=== PATIENT | male | born 1950 | race Caucasian/White ===

== ENCOUNTER → 2020-05-04 13:29 | Outpatient (CLI) | payer MEDICARE, OTHER, SELFPAY ==
--- NOTE | ~2020-05-04 | XR_ITS ---
XR foot LT min 3V DATE: 05/04/2020 14:06 INDICATION: Foot ulcer. Diabetes mellitus. TECHNIQUE: 4 views COMPARISON: None FINDINGS: Diffuse osteopenia. There is old healed fracture deformity of the proximal phalanx of the great toe. There is mild osteoarthritis at the first metatarsophalangeal joint. Tibiotalar joint replacement. A fixation screw is noted in the anterior half of the calcaneus. No recent fracture or dislocation. No periosteal reaction or bone destruction. There is anterior and posterior tibial and dorsalis pedis artery calcification. IMPRESSION: Diffuse osteopenia Postoperative changes including prosthetic tibiotalar joint Reviewed, dictated and finalized at location B.
== END ==
DX: E11.621 Type 2 diabetes mellitus with foot ulcer (principal); I70.245 Atherosclerosis of native arteries of left leg with ulceration of other part of foot; L97.521 Non-pressure chronic ulcer of other part of left foot limited to breakdown of skin; E66.9 Obesity, unspecified; I48.91 Unspecified atrial fibrillation; Z79.02 Long term (current) use of antithrombotics/antiplatelets; E11.40 Type 2 diabetes mellitus with diabetic neuropathy, unspecified; G20 Parkinson's disease; I10 Essential (primary) hypertension
CPT/HCPCS: 73630

== ENCOUNTER 2021-06-27 10:41 | Outpatient (CLI) | payer MEDICARE, OTHER, SELFPAY | END 2021-06-27 10:42 | disposition home or self-care (01) | LOC: ANHAUDIO 10:45 | PROVIDERS: PCP Family Medicine; Visit Provider Otolaryngology | DX: H91.90 Unspecified hearing loss, unspecified ear (principal) | CPT/HCPCS: 92557; 92567 ==

== ENCOUNTER 2022-03-12 10:45 | Outpatient (RCR) | payer MEDICARE, OTHER, SELFPAY ==
--- NOTE | 2022-03-01 11:46 | PTOPEVAL ---
PHYSICAL THERAPY EVALUATION Thank you for referring Maximiliano Brown to [facility].? The patient is scheduled to be seen for therapy? 2x/week for 4 weeks for aquatic PT. Please review, sign, date and return this plan of care STEPHEN. I agree with and certify that the following plan of care is medically necessary. Referring Physician Date Attending Provider: Meredith Sin Diagnosis Parkinson's Disease Subjective Information Has diagnosis of PD. Has Query Text:As Reported By Patient/ participated in quite a bit of Family therapy in the past already. States the worked on gait and balance. States they started therapy around 2019 and started at twice a week and has been doing one time a week for the last several months. At home they will sometimes go for a walk. PD symptoms started in 1986 and diagnosed in 1995. DBS placed in 2010. Maximiliano has significant fatigue and falls asleep easily. His void is quite small and low amplitude. When asked about his goals and he is not able to identify anything specific. asks about getting up off the floor . States that on average he falls at least once a day. There have been some dementia symptoms at beginning and end of the day. Balance Assessment Thomas Balance Assessment: Timed Up and Go Test (TUG) (Seconds) 18 Assistive Devices Walker, Rollator 5 Time Sit to Stand Time in Seconds 12.17 5 Time Sit to Stand Comments heavy use of UE Gait Assessment Gait Pattern Assessment Gait Pattern Crouched Gait,Narrow Based Gait Gait Pattern Observed Trunk Flexed Other Gait Observations uses tall rollator walker; knees flexed, trunk forward and cues required to stand closer to walker 6 Minute Walk Total Distance (feet) 1,001 6 Minute Walk Gait Speed Score (feet/ 2.78 second) PT Clinical Summary Maximiliano is a 71 yo male presenting to outpatient physical therapy seeking aquatic physical therapy to
--- NOTE | 2022-03-16 10:08 | PCPTNOTE ---
Patient called & cancelled scheduled appointment this date due to being in the ED.
--- NOTE | 2022-03-16 14:18 | PCPTNOTE ---
Patient called & cancelled scheduled appointment this date due to being in the ED.
--- NOTE | 2022-03-28 07:42 | PCPTNOTE ---
PHYSICAL THERAPY DISCHARGE NOTE Attending Provider: Meredith Sin Patient:Maximiliano Brown Date of :1950 Maximiliano was participating in physical therapy to treat symptoms of Parkinson's disease. His called to report that he is in the hospital and will not be able to participate in PT. His last attended visit was 03/12/22 and he attended a total of 4 visits. Thank you for referring this patient to [facility]. Please review, sign, date and return this discharge summary STEPHEN. I have been updated about the patient's current status and I agree with discharge from the above service at this time. Referring Physician Date
== END 2022-03-28 12:19 | disposition home or self-care (01) ==
LOC: ANHPT 10:45
PROVIDERS: PCP Family Medicine
DX: G20 Parkinson's disease (principal)
CPT/HCPCS: 97113; 97163

== ENCOUNTER 2022-03-16 07:01 | Inpatient (IN) | payer MEDICARE, OTHER, SELFPAY ==
[2022-03-16] VITALS (22 sets, daily range): BP systolic 76–122; BP diastolic 58–77; PULSE 80–105; RESP 20–41; TEMP 36.4–36.8; O2SAT 87–99; BMI 29.1
--- NOTE | ~2022-03-16 | XR_ITS ---
EXAMINATION: XR chest 1V portable DATE: 03/19/2022 05:49 INDICATION: Acute respiratory failure. Pneumonia. TECHNIQUE: A single frontal view of the chest was obtained. COMPARISON: Chest single view 03/18/2022, CT abdomen and pelvis 03/16/2022 FINDINGS: There are airspace opacities in the lower lung zones. No pleural effusion or pneumothorax. The heart size is normal. The endotracheal tube tip is 3.9 cm above the chapis. The nasogastric tube tip is in the stomach. There is an electronic device overlying right chest with wires extending to th e neck. There are retained wires in left chest wall. IMPRESSION: 1. Airspace opacities in the lower lung zones with interval improvement, consistent with pneumonia. Reviewed, dictated and finalized at location A. IMPRESSION: 1. Airspace opacities in the lower lung zones with interval improvement, consis tent with pneumonia.
--- NOTE | ~2022-03-16 | XR_ITS ---
EXAMINATION: XR abdomen NG/feed tube insert DATE: 03/16/2022 23:41 INDICATION: Nasogastric tube placement TECHNIQUE: A supine view of the abdomen and lower chest was obtained for evaluation of feeding tube placement. COMPARISON: CT dated 03/16/2022 FINDINGS: There is a gastric tube tip and proximal side port in the body of the gas and fluid distended stomach . Dilated loops of small bowel in the visualized upper abdomen consistent with small bowel obstructio n. Patchy airspace opacities in the right mid to lower and left lower lung zones. IMPRESSION: 1. Nasogastric tube in stomach. 2. Small bowel obstruction. 3. Patchy bilateral lung disease which could represent aspiration, pneumonia, atelectasis or some com bination thereof. Reviewed, dictated and finalized at location A. IMPRESSION: 1. Nasogastric tube in stomach. 2. Small bowel obstruction. 3. Patchy bilateral lung disease which could represent aspiration, pneumonia, a telectasis or some combination thereof.
--- NOTE | ~2022-03-16 | XR_ITS ---
EXAMINATION: XR chest 1V portable DATE: 03/23/2022 05:33 INDICATION: Acute respiratory failure. Pneumonia. TECHNIQUE: A single frontal view of the chest was obtained. COMPARISON: Chest single view 03/22/2022 FINDINGS: The lung volumes are small. There are airspace opacities in all right lung zones and in lef t mid and lower lung zones. No pleural effusion or pneumothorax. The heart size is normal. The nasoga stric tube tip is in the stomach. There is an electronic device in right chest with wires extending i nto the neck. There are retained wires in left chest. IMPRESSION: 1. Small lung volumes with stable diffuse lung disease, consistent with pneumonia. Reviewed, dictated and finalized at location A. IMPRESSION: 1. Small lung volumes with stable diffuse lung disease, consistent with pneumon ia.
--- NOTE | ~2022-03-16 | CT_ITS ---
EXAMINATION: CT abdomen pelvis wo con DATE: 03/16/2022 20:32 INDICATION: Abdominal distention. Vomiting. TECHNIQUE: Computed tomography (CT) of the abdomen and pelvis was performed without intravenous contr ast. Automated exposure control and iterative reconstruction technique were employed. The dose-length product was 1515.99 mGy-cm. COMPARISON: None. FINDINGS: The visualized portions of the lung bases demonstrate patchy airspace and groundglass opaci ties in all lobes, worst in right upper lobe, consistent with pneumonia. There are small pleural effu sions. The heart size is normal. There are coronary artery calcifications. No pericardial effusion. T here is an electronic device in right anterior chest wall. There are retained electrodes in left ante rior chest wall. The liver is normal. There are gallstones in the gallbladder, which is distended. Th e stomach is distended. There is fluid in the esophagus. There is an umbilical hernia containing a lo op of small bowel. The small bowel is fluid-filled and dilated proximal to the hernia. The distal sma ll bowel is decompressed. The appendix is normal. Stool distends the rectum. The prostate is moderate ly enlarged. The bladder is decompressed by a Sanabria catheter. There are no pathologically enlarged ly mph nodes. There is no free intraperitoneal fluid. There is moderate lumbar spondylosis and mild thor acic spondylosis. IMPRESSION: 1. Small bowel obstruction secondary to an umbilical hernia. 2. Multifocal pneumonia. 3. Small pleural effusions. 4. Gallstones. Gallbladder distention may be secondary to fasting and bowel obstruction. Reviewed, dictated and finalized at location A. IMPRESSION: 1. Small bowel obstruction secondary to an umbilical hernia. 2. Multifocal pneumonia. 3. Small pleural effusions. 4. Gallstones. Gallbladder distention may be secondary to fasting and bowel obs truction.
--- NOTE | ~2022-03-16 | CT_ITS ---
EXAMINATION: CT brain wo con DATE: 03/29/2022 13:35 INDICATION: Stroke presenting with altered mental status and left facial droop. TECHNIQUE: Computed tomography (CT) of the head was performed without intravenous contrast. Sagittal and coronal reconstructions were performed. The mA was adjusted according to patient size. Iterative reconstruction technique was employed. The dose-length product was 605.33 mGy-cm. COMPARISON: head CT dated 03/16/2022 FINDINGS: Again seen are bilateral deep brain stimulators extending through left and right frontal bones and ac ross the frontal lobes with distal tips to the posterior inferior aspect of the bilateral basal gangl ia No acute intracranial hemorrhage, acute infarction or abnormal extra axial fluid collection. Symme tric prominence of the sulci consistent with mild age-appropriate diffuse cerebral volume loss. Vent ricles are normal and symmetric. No mass/mass effect. Prominent mucosal thickening the posterior righ t ethmoid air cells. Partially visualized nasogastric tube extending to the right nasal cavity. The o rbits and mastoid air cells are normal. IMPRESSION: 1. No acute intracranial process. 2. Chronic mild age-appropriate diffuse volume loss and stable appearance of bilateral deep brain sti mulators in expected position. Reviewed, dictated and finalized at location B. IMPRESSION: 1. No acute intracranial process. 2. Chronic mild age-appropriate diffuse volume loss and stable appearance of bi lateral deep brain stimulators in expected position.
--- NOTE | ~2022-03-16 | XR_ITS ---
XR abdomen NG/feed tube rechec INDICATION: Evaluate NG tube position. TECHNIQUE: Limited KUB perform for evaluating NG tube . COMPARISON: 03/25/2022 FINDINGS: NG tube tip in the stomach. Visualized bowel gas pattern is nonspecific.There is gastric d istention. IMPRESSION: 1: NG tube tip in the stomach. Reviewed, dictated and finalized at location A.
--- NOTE | ~2022-03-16 | XR_ITS ---
EXAMINATION: XR chest 1V portable DATE: 03/20/2022 06:13 INDICATION: Acute respiratory failure. Pneumonia. TECHNIQUE: A single frontal view of the chest was obtained. COMPARISON: Chest single view 03/19/2022, CT abdomen and pelvis 03/16/2022 FINDINGS: Lung volumes are small. There are airspace opacities in all right lung zones and in left mi d and lower lung zones. No pleural effusion or pneumothorax. The heart size is normal. The nasogastri c tube tip is in the stomach. An electronic device overlies right chest with wires in right neck. The re are retained wires in left chest. IMPRESSION: 1. Small lung volumes with worsened diffuse lung disease, consistent with pneumonia. Reviewed, dictated and finalized at location A. IMPRESSION: 1. Small lung volumes with worsened diffuse lung disease, consistent with pneum onia.
--- NOTE | ~2022-03-16 | XR_ITS ---
EXAM: XR abdomen/kub 1V DATE: 03/21/2022 20:31 HISTORY: distended abdomen . COMPARISON: None available. FINDINGS: Midline surgical jasmyn. Nasogastric tube terminates over the stomach. Gastric distention , otherwise normal bowel gas pattern. No organomegaly. No abnormal abdominal calcification. Regional bones and soft tissues normal for age. IMPRESSION: Gastric distention, correlate with NG tube function. No radiographic evidence of obstruct ion or ileus. Reviewed, dictated and finalized at location K. IMPRESSION: Gastric distention, correlate with NG tube function. No radiographi c evidence of obstruction or ileus.
--- NOTE | ~2022-03-16 | XR_ITS ---
XR chest 2V 03/16/2022 08:14 Indication: Sepsis Procedure: 2 view chest Comparison: Comparison to multiple prior studies sequentially, with oldest reviewed study dated 08/29. Findings: Heart size is normal. There is extensive bilateral airspace disease, right greater than lef t, consistent with pneumonia. No significant effusion or pneumothorax. There is gastric distention, n onspecific. There is a battery pack and stimulator leads overlying the chest. Impression: 1: Extensive bilateral airspace disease, compatible with pneumonia. Reviewed, dictated and finalized at location D. Impression: 1: Extensive bilateral airspace disease, compatible with pneumonia.
--- NOTE | ~2022-03-16 | XR_ITS ---
XR abdomen obstructive series DATE: 03/25/2022 06:06 INDICATION: Postoperative ileus TECHNIQUE: Portable supine and upright AP views COMPARISON: 03/22/2022 KUB 03/16/2022 CT abdomen pelvis FINDINGS: NG tube is again noted with distal tip in the distal body of the stomach. Colp overlie the left lower abdomen and pelvis. The bowel gas pattern is nonspecific, without appa rent obstruction. No intraperitoneal free air is evident. There is infiltrate or atelectasis in the lung bases, left greater than right and mild elevation of l eft diaphragm. IMPRESSION: Postoperative change; no bowel obstruction is evident NG tube in stomach Bibasilar infiltrate or atelectasis Reviewed, dictated and finalized at Location A. Reviewed, dictated and finalized at location A.
--- NOTE | ~2022-03-16 | XR_ITS ---
MODIFIED ESOPHAGRAM HISTORY: Dysphagia. TECHNIQUE: Modified barium esophagram was performed by speech pathologist under radiologist fluorosco pic guidance. This was recorded on tape. The exam was reviewed on 03/30/2022 13:43 CDT. 1 minute of f luoroscopy. One fluoroscopic image. FINDINGS: Lateral projection of the cervical spine demonstrates normal alignment. There is reduced laryngeal elevation, reduced laryngeal adduction, reduced tongue base retraction with follicular and piriform sinus residue. There is laryngeal penetration with thin liquids and pudding. There are suspe cted aspiration.. IMPRESSION: 1: Laryngeal penetration with suspected aspiration. 2: Please refer to speech pathologist report for additional detail. Reviewed, dictated and finalized at location A.
--- NOTE | ~2022-03-16 | XR_ITS ---
EXAMINATION: XR abdomen/kub 1V DATE: 03/22/2022 07:41 INDICATION: Adynamic ileus. TECHNIQUE: A supine view of the abdomen was obtained. COMPARISON: CT abdomen and pelvis 03/16/2022 FINDINGS: There is gaseous distention of the stomach. The small bowel and colon are normal in caliber . Skin jasmyn are noted. The nasogastric tube tip is in the stomach. IMPRESSION: 1. Gaseous distention of the stomach with nasogastric tube tip in the stomach. Reviewed, dictated and finalized at location A.
--- NOTE | ~2022-03-16 | XR_ITS ---
EXAMINATION: XR chest 1V portable Exam Date/Time: 03/21/2022 20:15 CDT HISTORY: CHANGE IN STATS Comparison: 03/21/2022 at 5:48 AM. RESULT: Lines, tubes, and devices: NG tube tip and side port project over the stomach. Stimulator in the rig ht chest leads extending up the right neck. Abandoned wires in the left chest/neck. Lungs and pleura: Low volumes with crowding, otherwise clear. Cardiomediastinal silhouette: Stable cardiomediastinal silhouette. Other: No acute osseous finding. Gastric distention. IMPRESSION: NG tube in good position, however gastric distention raises concern for tube dysfunction. Reviewed, dictated and finalized at location K. IMPRESSION: NG tube in good position, however gastric distention raises concern for tube dy sfunction.
--- NOTE | ~2022-03-16 | XR_ITS ---
EXAMINATION: XR chest 1V portable DATE: 03/22/2022 05:53 INDICATION: Acute respiratory failure. Pneumonia. TECHNIQUE: A single frontal view of the chest was obtained. COMPARISON: Chest single view 03/21/2022 FINDINGS: The lung volumes are small. There are airspace opacities in all right lung zones and in lef t mid and lower lung zones. No pleural effusion or pneumothorax. The heart size is normal. The nasoga stric tube tip is in the stomach. There is gastric distention of the stomach. There is an electronic device in right chest with wires extending into the neck. There are retained wires in left chest. IMPRESSION: 1. Small lung volumes with stable diffuse lung disease, consistent with pneumonia. Reviewed, dictated and finalized at location A. IMPRESSION: 1. Small lung volumes with stable diffuse lung disease, consistent with pneumon ia.
--- NOTE | ~2022-03-16 | US_ITS ---
EXAMINATION: US renal BI DATE: 03/17/2022 13:40 INDICATION: Acute renal insufficiency TECHNIQUE: Multiple ultrasound grayscale images of the kidneys were obtained. COMPARISON: CT dated 03/16/2022 FINDINGS: The right kidney measures 11.0 x 6.4 x 7.2 cm. The left kidney measures 10.3 x 4.7 x 5.2 cm. The kidn eys demonstrate normal echogenicity. A millimeter anechoic cyst at the medial periphery of the right kidney. Mild echogenic and shadowing stone at the lower pole of the left kidney which measures 3 mm o n prior CT. There is no hydronephrosis in either kidney. The bladder is decompressed around a Sanabria catheter which limits evaluation. IMPRESSION: 1. 3 mm left renal stone. No hydronephrosis in either kidney. Reviewed, dictated and finalized at location A.
--- NOTE | ~2022-03-16 | CT_ITS ---
EXAMINATION: CT chest abdomen pelvis wo con DATE: 03/25/2022 16:32 CDT INDICATION: Fever and leukocytosis TECHNIQUE: Computed tomography (CT) of the chest, abdomen, and pelvis was performed without intraveno us contrast. The dose-length product was 1718.67 mGy-cm. Automated exposure control and iterative rec onstruction technique were employed. Automated exposure control and iterative reconstruction techniqu e were employed. COMPARISON: CT dated 03/16/2022 FINDINGS: There is improved bibasilar airspace disease, consistent with a resolving pneumonia. No significant p leural or pericardial effusion. Heart size normal. There is an NG tube in the stomach. There are gall stones. The liver, spleen, pancreas, left adrenal gland are unremarkable. There is a small low-densit y lesion in the right adrenal gland measuring 2.3 cm, consistent with adenoma. There are nonobstructi ng left renal stones. There is a Sanabria catheter in the bladder which is decompressed. There are punct ate nonobstructing right renal stones. There is atherosclerosis of the aorta without aneurysm. There is moderate fecal loading of the distal colon and rectum with concentric thickening of the rectal wal l. Mild perirectal fatty infiltration. Findings suspicious for stercoral proctitis. There are surgica l changes of the anterior abdominal wall consistent with recent hernia repair. There is moderate lumb ar spondylosis. IMPRESSION: 1. Moderate fecal loading of the distal colon and rectum with concentric thickening of the rectal wal l, suspicious for stercoral proctitis. 2: Improving bibasilar pneumonia. 3: Cholelithiasis. 4: Nonobstructing bilateral nephrolithiasis. Reviewed, dictated and finalized at location A. IMPRESSION: 1. Moderate fecal loading of the distal colon and rectum with concentric thicke freddie of the rectal wall, suspicious for stercoral proctitis. 2: Improving bibasilar pneumonia. 3: Cholelithiasis. 4: Nonobstructing bilateral nephrolithiasis.
--- NOTE | ~2022-03-16 | XR_ITS ---
EXAMINATION: XR chest ET placement DATE: 03/18/2022 09:33 INDICATION: Endotracheal tube placement TECHNIQUE: frontal view of the chest was obtained. COMPARISON: Chest radiograph dated 03/17/2022 FINDINGS: Endotracheal tube tip 4.3 cm above the chapis. Nasogastric tube tip in the stomach. Lung volumes remain small. Interval improvement in airspace opacities in the right lung and in the le ft mid to lower lung zone. No pneumothorax or definitive pleural effusion. The cardiomediastinal cesar houette is within normal limits for AP technique. IMPRESSION: 1. Interval decrease in density of bilateral airspace opacities most likely improving multifocal pneu monia. Reviewed, dictated and finalized at location A. IMPRESSION: 1. Interval decrease in density of bilateral airspace opacities most likely imp roving multifocal pneumonia.
--- NOTE | ~2022-03-16 | CT_ITS ---
EXAMINATION: CT brain wo con DATE: 03/16/2022 08:10 INDICATION: Status post fall. Patient on blood thinners. TECHNIQUE: Computed tomography (CT) of the head was performed without intravenous contrast. The dose- length product was 605.33 mGy-cm. Automated exposure control and iterative reconstruction technique w ere employed. COMPARISON: CT dated 08/08/2019 FINDINGS: Brain parenchymal volume is normal. There are deep brain stimulator leads extending from th e frontal location to the basal ganglia. No ventriculomegaly or midline shift. There is intracranial atherosclerosis. There are scattered mild periventricular and subcortical white matter changes, most likely related to small vessel ischemic disease (microangiopathy). No acute intracranial hemorrhage, infarction, mass or mass effect. There is mucosal thickening of the right maxillary and ethmoid sinus es. Mastoids are pneumatized. Small air-fluid levels in the right maxillary and the right sphenoid si nuses. IMPRESSION: 1. No acute intracranial abnormality. 2: Mild-moderate sinus disease, possibly acute. 3: Chronic age-related findings. Reviewed, dictated and finalized at location D.
--- NOTE | ~2022-03-16 | XR_ITS ---
EXAMINATION: XR chest 1V portable DATE: 03/17/2022 05:50 INDICATION: Pneumonia TECHNIQUE: frontal view of the chest was obtained. COMPARISON: Chest radiograph dated 03/16/22 FINDINGS: Persistent airspace opacities in the right midlung zone and significant increase in airspace opacity in the left lower lung zone. Slight improvement in the opacities in the right lower lung zone. No pne umothorax or right-sided pleural effusion. Cardiac mediastinal silhouette is within normal limits for AP technique. Nasogastric tube tip in proximal side port in the stomach. IMPRESSION: 1. Patchy bilateral lung disease at the left lower lung zone with improvement in the right lower lung zone and worsening in the left lower lung zone which could represent pneumonia, atelectasis, pulmona ry edema or some combination thereof. 2. Possible small left pleural effusion. Reviewed, dictated and finalized at location A. IMPRESSION: 1. Patchy bilateral lung disease at the left lower lung zone with improvement i n the right lower lung zone and worsening in the left lower lung zone which cou ld represent pneumonia, atelectasis, pulmonary edema or some combination thereo f. 2. Possible small left pleural effusion.
--- NOTE | ~2022-03-16 | XR_ITS ---
EXAMINATION: XR chest 1V portable DATE: 03/21/2022 05:56 INDICATION: Acute respiratory failure. Pneumonia. TECHNIQUE: A single frontal view of the chest was obtained. COMPARISON: Chest single view 03/20/2022 FINDINGS: The lung volumes are small. There are airspace opacities in the mid and lower lung zones. N o pleural effusion or pneumothorax. The heart size is normal. The nasogastric tube tip is in the stom ach. There is an electronic device in right chest with wires extending to the neck. There are retaine d wires in left chest. IMPRESSION: 1. Small lung volumes with airspace opacities in the mid and lower lung zones with mild improvement, consistent with pneumonia. Reviewed, dictated and finalized at location A. IMPRESSION: 1. Small lung volumes with airspace opacities in the mid and lower lung zones w ith mild improvement, consistent with pneumonia.
[2022-03-16] MEDS: SODIUM CHLORIDE 0.9% IV 1,000 ML 999 ML IV CONT (07:15)
--- NOTE | 2022-03-16 07:27 | ED.GENADULT ---
HPI - General Adult General Chief complaint: Fall Stated complaint: glf x 2 , altered, unable to get fast ed score Time Seen by Provider: 03/16/22 07:04 Source: patient, family, EMS and RN notes reviewed Mode of arrival: EMS Limitations: no limitations History of Present Illness HPI narrative: Patient 72 years old white male brought to the emergency room by ambulance because he was not able to keep standing this morning. Patient was laying down on the floor, try to get up and became falling over, his try to get him on the chair and felt over. No head injury, or other injuries, patient is asymptomatic. The is telling me that patient been spitting/vomiting coffee-ground material over the last 48 hours. History of low blood pressure for a while, in the range of 100/60. Patient on blood pressure medication. He denies any fever, chills, nausea, diarrhea, abdominal pain, chest pain, shortness of breath, back pain or head injury. History of parkinsonism, A. fib, brain stimulator, on aspirin, does not smoke or drink, DNR. Patient have trouble to take care of him because of the movement disorder of parkinsonism, requested shelter placement if there is no other way around. Related Data Home Medications Medication Instructions Recorded Confirmed atenolol 25 mg tablet 25 mg PO DAILY 06/07/21 06/07/21 carbidopa 25 mg-levodopa 100 mg 1 tablet PO TID 06/07/21 06/07/21 tablet hydrochlorothiazide 25 mg tablet 25 mg PO DAILY 06/07/21 06/07/21 inulin-sorbitol 2 gram chewable tablet PO 06/07/21 06/07/21 tablet mirabegron 25 mg tablet,extended 25 mg PO DAILY 06/07/21 06/07/21 release 24 hr pramipexole 1 mg tablet 1 mg PO TID 06/07/21 06/07/21 tramadol 50 mg tablet 50 mg PO Q6H PRN 06/07/21 06/07/21 Allergies Allergy/AdvReac Type Severity Reaction Status Date / Time No Known Allergies Allergy Verified 09/20/16 19:39 Review of Systems Review of Systems: All systems reviewed & are unremarkable except as noted in HPI and below PMFSH Social History Social History Smoking status: Never smoker Alcohol intake: current Alcohol use details: 1 to 2 drinks per year Substance use: never Exam Narrative: General appearance: Well-developed, well-nourished, poor hygienic condition Skin: Normal color, no bruises Head: Normocephalic, nontraumatic Eyes: Clear conjunctiva ENT: Oropharynx normal, ears normal, nose normal Neck: Supple, nontender Chest and respiratory: Airway patent, no respiratory distress, no accessory muscle use Heart: Regular rate/rhythm Abdomen: Soft, nontender, no organomegaly, quiet bowel sounds, umbilical hernia Vascular: Normal peripheral pulses, normal capillary refill. 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 Alexander Admit to IMU Date: 03/16/22 Time: 09:36 Vital Signs Vital signs: Vital Signs Temperature 36.6 C 03/16/22 07:01 Pulse Rate 105 H 03/16/22 07:01 Respiratory Rate 30 H 03/16/22 07:01 Blood Pressure 76/60 L 03/16/22 07:01 Pulse Oximetry 88 L 03/16/22 07:01 Temperature 36.6 C 03/16/22 07:01 Pulse Rate 105 H 03/16/22 07:01 Respiratory Rate 30 H 03/16/22 07:01 Blood Pressure 76/60 L 03/16/22 07:01 Pulse Oximetry 93 03/16/22 07:10 Medical Decision Making Differential Diagnosis Differential Diagnosis: Sepsis, pneumonia, urinary tract infection, dehydration, electrolyte imbalance Vital Signs Vital Signs: Vital Signs Temperature 36.6 C 03/16/22 07:01 Pulse Rate 105
--- NOTE | 2022-03-16 07:29 | ECG_ITS ---
Measurements Intervals [place] Rate: 91 P: 23 VT: 145 QRS: 32 QRSD: 90 T: 37 QT: 387 QTc: 477 Interpretive Statements SINUS RHYTHM VENTRICULAR PREMATURE COMPLEXES POSSIBLE LEFT ATRIAL ENLARGEMENT BORDERLINE ST-T WAVE ABNORMALITY- INFERIOR LEADS BASELINE ARTIFACT- I, II, III, AVR, AVL, AVF, V1-V6 ABNORMAL ECG Electronically Signed On 03-16-2022 8:55:52 CDT by Emiliano Joya D.O.
[2022-03-16 07:44] LABS: Alveolar/Arterial O2 Gradient 173.2 mmHg; Base Excess ABG -0.5 mEq/l (+/-2.0); Device NASAL CANNULA; Fractional Inspired Oxygen 40 %; HCO3 ABG 23.3 mEq/l (22.0-26.0); Modified Allen's Test Pass; Oxygen Content ABG 22.7 %vol (16.0-22.0); Oxygen Saturation ABG 94.7 % (95.0-100.0); Oxyhemoglobin 92.8 % THb (90.0-100.0); PO2 ABG 70.6 mmHg (80.0-100.0); PO2 FiO2 Ratio Arterial Blood 1.76 %; Site Drawn LEFT RADIAL; Total Hemoglobin 17.4 g/dL (12.0-18.0); pH ABG 7.428 (7.350-7.450)
[2022-03-16 08:03] LABS: Hematocrit 54.5 % (42.0-52.0); Hemoglobin 17.4 g/dL (14.0-18.0); Mean Corpuscular HGB Conc 31.9 g/dl (32-36); Mean Corpuscular Hemoglobin 30.5 pg (26-34); Mean Corpuscular Volume 95.4 fl (80-100); Mean Platelet Volume 11.5 fl (7.4-10.4); Platelet Count Result 216 k/mm3 (150-375); Red Blood Count 5.71 M/mm3 (4.6-6.20); Red Cell Distribution Width 13.8 % (11.5-14.5); White Blood Count 6.3 K/mm3 (4.5-10.0)
[2022-03-16 08:10] LABS: INR 1.7
[2022-03-16 08:21] LABS: Partial Thromboplastin Time 25.1 SECONDS (22.3-36.8)
[2022-03-16 08:23] LABS: Albumin Level 4.1 g/dL (3.5-5.1); Alkaline Phosphatase 104 U/L (38-126); Anion Gap 18 mmol/L (8-16); Aspartate Amino Transferase 35 U/L (17-59); Bilirubin,Total 1.3 mg/dL (0.2-1.3); Blood Urea Nitrogen 64 mg/dL (9-20); Calcium 8.1 mg/dL (8.4-10.2); Carbon Dioxide 28 mmol/L (22-30); Chloride 101 mmol/L (98-107); Estimated CRCL calculation 26 ml/min; Estimated Glomerular Filt Rate 22; Glucose 168 mg/dL (65-110); Lactic Acid Reflex 5.9 mmol/L (0.7-2.0); Potassium 4.2 mmol/L (3.4-5.0); Sodium 147 mmol/L (137-145)
[2022-03-16 08:25] LABS: Atypical Lymphocytes Present; Band Neutrophils Percent 40 % (0-6); Lymphocytes Absolute Manual 0.75 K/mm3 (1.1-4.5); Metamyelocytes Percent 4 %; Monocytes Percent Manual 8 % (3-9); Neutrophils Absolute Manual 4.78 K/mm3 (1.3-6.7); Neutrophils Percent Manual 36 % (46-73); Platelet Estimate Adequate (Adequate); Total Cells Counted 100
[2022-03-16 08:29] LABS: Alanine Aminotransferase 19 U/L (6-50)
[2022-03-16 08:35] LABS: CRP 21.7 mg/dL (<1.0)
[2022-03-16 09:15] LABS: SARS-CoV-2 RNA PCR Negative
--- NOTE | 2022-03-16 09:23 | PC.NURSE ---
Pt unable to void will proceed with straight cath.
[2022-03-16 10:03] LABS: Add Urine Microscopic? YES; Appearance Urine Slightly Cloudy (Clear); Bilirubin Urine 1+ (Negative); Blood Urine 2+ (Negative); Color Urine Amber (Yellow); Glucose Urine UA Negative (Negative); Ketones Urine Trace mg/dL (Negative); Leukocyte Esterase Ur Negative LEU/UL (Negative); Nitrate Urine Negative (Negative); Protein Urine 1+ mg/dL (Negative); Specific Grav Ur >= 1.030 (1.001-1.035); Urobilinogen Urine 0.2 mg/dL (<2.0)
[2022-03-16 10:07] LABS: Bacteria Urine Trace /hpf; Hyaline Casts Urine 15-19 /lpf; Mucus Urine Rare /lpf
[2022-03-16 10:52] LABS: Reflex Lactic Acid Yes or No Add Lactic
[2022-03-16 11:21] LABS: Lactic Acid 2.7 mmol/L (0.7-2.0)
--- NOTE | 2022-03-16 12:00 | ADMGEN ---
This patient, Maximiliano Brown, was admitted to Intensive Care Unit-3. Patient/family oriented to hospital policies and general routines including ID bracelet, bed and alarms, visiting hours, pain management, procedures, bathroom and other care routines, personal items, smoking policy, room service/diet, and visiting hours. Information on how to activate the Rapid Response Team has been discussed. Patient/Family are encouraged to report perceived risks to care and to ask questions if they do not understand what they are told or what they should do.
[2022-03-16 12:20] LABS: Glucose Point of Care 160 mg/dl (65-105)
--- NOTE | 2022-03-16 12:31 | WPDCNINT ---
Assessment and Plan Assessment and plan (1) Severe sepsis: Code(s): A41.9 - Sepsis, unspecified organism; R65.20 - Severe sepsis without septic shock Status: Acute Assessment and Plan: Patient presented with weakness, fall, hypotension, elevated lactic acid, acute kidney injury -found to be in severe sepsis, source likely pneumonia -patient was given 30 mL/kg of IV fluids, -normal systolic blood pressures per is between 90-110 mmHg -will continue maintenance IV fluids -repeat lactic acid trending down continue to monitor -patient started on vancomycin, Zosyn Levaquin (03/16) -SARS-CoV-2 negative -will obtain influenza A and B, will check urine Legionella and urine strep pneumo antigen (2) Pneumonia: Qualifiers: Laterality: bilateral Lung location: lower lobe of lung Pneumonia type: due to unspecified organism Qualified Code(s): J18.9 - Pneumonia, unspecified organism Code(s): J18.9 - Pneumonia, unspecified organism Status: Acute Assessment and Plan: Chest x-ray reviewed, bilateral infiltrates due to pneumonia -continue supplemental oxygen -continue antibiotics as above -will obtain chest x-ray in a.m. -continue bronchodilators (3) NATALIO (acute kidney injury): Code(s): N17.9 - Acute kidney failure, unspecified Status: Acute Assessment and Plan: Acute kidney injury is likely related to severe sepsis, infection, hypovolemia, decreased p.o. intake -adequately fluid-resuscitated the ER -continue maintenance IV fluids -repeat lactic acid is trending down -will insert Sanabria for accurate I's and O's -continue to monitor renal function, electrolytes and urine output (4) Parkinson's disease: Code(s): G20 - Parkinson's disease Status: Acute Assessment and Plan: Patient has a history of Parkinson's disease for the last 25 years as per his -he has a deep brain stimulator -also on clozapine and is followed at [facility] for his Parkinson's disease (5) DVT prophylaxis: Code(s): Z29.9 - Encounter for prophylactic measures, unspecified Status: Acute Assessment and Plan: SubQ heparin Additional Plan Nutrition: Full liquid diet Discussed with patient's , she was instrumental in providing medical history. I updated her with patient's condition and plan of care. She is going to talk to her daughter was a nurse regarding intubation. Is okay with central line placement if necessary in starting vasopressors if needed. Which she did reiterate that patient is a DNR. Code status: DNR Critical care time spent: 48 minutes This dictation may have been done utilizing a voice recognition system. Attempts have been made to correct errors. However, there may be uncorrected grammatical, spelling, and recognition errors present. Due to a high probability of clinically significant, life threatening deterioration, the patient required my highest level of preparedness to intervene emergently and I personally spent this critical care time directly and personally managing the patient. This critical care time included obtaining a history; examining the patient; pulse oximetry; ordering and review of studies; arranging urgent treatment with development of a management plan; evaluation of patient's response to treatment; frequent reassessment; and discussions with other providers. It was exclusive of separately billable procedures and treating other patients and teaching time. Please see Assessment and Plan section and the rest of the note for further information on patient assessment and treatment Harpooner Consult Note Consult date: 03/16/22 Time Seen: 12:07 Reason for consult: Pneumonia, sepsis, weakness, shortness of breath HPI: Maximiliano Brown is a 72 year old male with past medical history of severe Parkinson's disease for the last 25 years per , patient has a deep brain stimulator for the same. He does not have any cardiac or pu
[2022-03-16] MEDS: IPRATROPIUM BR 0.02% INH SOLN 0.5 MG/2.5 ML VIAL INHALATION ×2 (13:21→19:53)
[2022-03-16] MEDS: ALBUTEROL SULFATE NEB 2.5 MG/3 ML INH 5 MG INHALATION ×2 (13:21→19:52)
[2022-03-16] MEDS: SODIUM CHLORIDE 0.9% IV 1,000 ML 100 ML IV CONT ×2 (13:58→18:00)
[2022-03-16 14:56] LABS: Hemoglobin A1C 5.7 % (<5.7)
[2022-03-16 16:29] LABS: Influenza A QL RT-PCR Negative (Negative); Influenza B QL RT-PCR Negative (Negative)
[2022-03-16 18:00] LABS: Glucose Point of Care 176 mg/dl (65-105)
[2022-03-16] MEDS: CARBIDOPA/LEVODOPA 25/100 MG TABLET 3 TABLET PO (18:00)
--- NOTE | 2022-03-16 18:00 | PM.IMHP ---
H&P: HPI History of Present Illness Date/Time: 03/16/22 18:00 Chief Complaint: Weakness. Narrative: This is a 72-year-old male with Parkinson's disease and hypertension who presented to the emergency department via EMS from home for evaluation of weakness. The patient is not a great historian as such a majority of the following is obtained via a review of his electronic medical records as well as discussions with his , with the patient's permission. The patient is typically pretty stoic he rarely complains however couple of days ago he mentions that his stomach was a bit upset. His appetite has been poor since that time and he has become progressively more weak and has noticed that he is sleeping more than usual. Last night he had several episodes of emesis and this morning morning he sustained a ground level fall and emergency services were contacted. On arrival to the ER his blood pressure was 76/60, pulse 105, respiratory rate 30, SpO2 88%, and temperature 97.9?. Pertinent labs include a WBC count of 6.3 with 36% neutrophils, 40% bands, 12% lymphocytes noted on manual differential; BUN and creatinine of 64 and 2.90 respectively; sodium 147, lactic acid 5.9; CRP 21.7. Brain CT showed mild to moderate sinus disease, possibly acute, and a chest x-ray showed extensive bilateral airspace disease compatible with pneumonia. He was given 3 L IV fluid bolus with improvement in his lactic acid level and blood pressures, and he was admitted to ICU for further care. At the time my evaluation he has a tray of clear liquids in front of him and on occasion he is noted to cough or clear his throat when drinking. After coughing he reached for the emesis bag and he spit up brown opaque fluid. Physical exam showed a firm and distended abdomen with mild tenderness to deeper palpation the periumbilical region. He was sent for a stat CT of the abdomen and pelvis which showed a small-bowel obstruction secondary to an umbilical hernia as well as multiple focal pneumonia. Surgery was consulted and an NG tube was inserted. Again, the patient has no complaints. Review of Systems Review of Systems: Unable to obtain accurately given his dementia associated with Parkinson's. reports that he sleeps the majority of the day and he occasionally hallucinates and wanders at nighttime. [facility] Past Medical History Medical History (Updated 03/17/22 @ 00:05 by Alicja Fong PA-C) Diet-controlled diabetes mellitus Parkinson's disease Parkinson's disease dementia Psoriasis Surgical History Surgical History (Updated 03/16/22 @ 23:59 by Alicja Fong PA-C) History of left ankle joint replacement Status post deep brain stimulator placement Family History Family History (Updated 03/17/22 @ 00:00 by Alicja Fong PA-C) Other Acute myocardial infarction Atrial fibrillation Cerebrovascular accident Hypertension Social History Social History (Updated 03/17/22 @ 00:01 by Alicja Fong PA-C) Social History: Surrogate decision maker: Norma Brown, spouse. Code status: Do not resuscitate. 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 Spiritual care concerns: No Meds Home Medications and Allergies Home Medications Medication Instructions Recorded Confirmed Type atenolol 25 mg tablet 12.5 mg PO DAILY 06/07/21 03/16/22 History carbidopa 25 mg-levodopa 100 mg See Rx Instructions .ROUTE .COMPLEX 06/07/21 03/16/22 History tablet hydrochlorothiazide 25 mg tablet 25 mg PO DAILY 06/07/21 03/16/22 History mirabegron 25 mg tablet,extended 50 mg PO DAILY 06/07/21 03/16/22 History release 24 hr pramipexole 1 mg tablet 1 mg PO TID 06/07/21 03/16/22 History cloza
[2022-03-16] MEDS: HALOPERIDOL LACTATE 5 MG/ML VIAL 2.5 MG IM (22:03)
[2022-03-17] VITALS (39 sets, daily range): BP systolic 83–120; BP diastolic 63–77; PULSE 80–108; RESP 18–28; TEMP 36.4–37.2; O2SAT 90–95
[2022-03-17 00:16] LABS: Glucose Point of Care 153 mg/dl (65-105)
[2022-03-17] MEDS: IPRATROPIUM BR 0.02% INH SOLN 0.5 MG/2.5 ML VIAL INHALATION ×4 (02:26→20:24)
[2022-03-17] MEDS: ALBUTEROL SULFATE NEB 2.5 MG/3 ML INH 5 MG INHALATION ×4 (02:26→20:24)
[2022-03-17] MEDS: SODIUM CHLORIDE 0.9% IV 1,000 ML 100 ML IV CONT (02:59)
[2022-03-17 04:37] LABS: Hematocrit 45.2 % (42.0-52.0); Hemoglobin 14.4 g/dL (14.0-18.0); Mean Corpuscular HGB Conc 31.9 g/dl (32-36); Mean Corpuscular Hemoglobin 30.1 pg (26-34); Mean Corpuscular Volume 94.4 fl (80-100); Mean Platelet Volume 11.5 fl (7.4-10.4); Platelet Count Result 164 k/mm3 (150-375); Red Blood Count 4.79 M/mm3 (4.6-6.20); Red Cell Distribution Width 13.8 % (11.5-14.5); White Blood Count 8.1 K/mm3 (4.5-10.0)
[2022-03-17 04:46] LABS: Lactic Acid Reflex 1.4 mmol/L (0.7-2.0)
[2022-03-17 04:48] LABS: Alanine Aminotransferase 8 U/L (6-50); Albumin Level 3.2 g/dL (3.5-5.1); Alkaline Phosphatase 75 U/L (38-126); Anion Gap 11 mmol/L (8-16); Aspartate Amino Transferase 49 U/L (17-59); Bilirubin,Total 1.1 mg/dL (0.2-1.3); Blood Urea Nitrogen 68 mg/dL (9-20); Calcium 7.4 mg/dL (8.4-10.2); Carbon Dioxide 25 mmol/L (22-30); Chloride 108 mmol/L (98-107); Estimated CRCL calculation 29 ml/min; Estimated Glomerular Filt Rate 26; Glucose 131 mg/dL (65-110); Phosphorus 4.1 mg/dL (2.5-4.5); Potassium 3.9 mmol/L (3.4-5.0); Sodium 144 mmol/L (137-145)
[2022-03-17 05:00] LABS: Band Neutrophils Percent 27 % (0-6); Lymphocytes Absolute Manual 0.64 K/mm3 (1.1-4.5); Lymphocytes Percent Manual 8 % (18-44); Monocytes Absolute Manual 0.48 K/mm3 (0.1-0.90); Monocytes Percent Manual 6 % (3-9); Neutrophils Absolute Manual 6.96 K/mm3 (1.3-6.7); Neutrophils Percent Manual 59 % (46-73); Total Cells Counted 100
[2022-03-17 05:01] LABS: Atypical Lymphocytes Present; Platelet Estimate Adequate (Adequate)
--- NOTE | 2022-03-17 05:41 | PC.NURSE ---
At the beginning of the shift the patient was vomiting so e took him to do a stat CT. the RIGGING SUPERVISOR then asked me to call the surgeon refrigeration unit repairer and Dr. Alexander and give them an update. Dr. Galaviz was called at 03/16 for his consult and stated he will see the patient 03/17. Dr. Alexander ordered the patient to have an NG. The first NG was placed at 2139 and the patient immediately took it out. I receivd an order for restraints and a small dose of haldol because merna was screaming and fighting the nurses. He was trying to kick and get out of bed and screaming for help. He was also hallucinating prior to medication being give, his says he hallucinates at home. At 2300 I was able to get the NG with no adverse events. Patient remains to be restrained and confused.
[2022-03-17 09:16] LABS: Glucose Point of Care 144 mg/dl (65-105)
--- NOTE | 2022-03-17 09:29 | PCSTNOTE ---
Spoke with ICU nurse regarding swallow evaluation due to Parkinson's diagnosis, coughing at bedside, and chest imaging revealing aspiration PNA. Nursing confirmed that patient is NPO for bowel obstruction, will consult ST once pt is able to accept PO trials.
--- NOTE | 2022-03-17 09:39 | WPDINTPN ---
Progress Note: A&P Assessment and Plan (1) Small bowel obstruction: Code(s): K56.609 - Unspecified intestinal obstruction, unspecified as to partial versus complete obstruction Status: Acute Assessment and Plan: Patient tried to have some clear liquids and had an episode of nausea and vomiting, 03/16: CT scan of the abdomen and pelvis: 1. Small bowel obstruction secondary to an umbilical hernia. 2. Multifocal pneumonia. 3. Small pleural effusions. 4. Gallstones. Gallbladder distention may be secondary to fasting and bowel obstruction. NG tube was inserted with approximately 3.5 L of NG drainage overnight and 1 L NG drainage is this morning -appreciate surgical evaluation, family is deciding whether to go for surgery or not (2) Severe sepsis: Code(s): A41.9 - Sepsis, unspecified organism; R65.20 - Severe sepsis without septic shock Status: Acute Assessment and Plan: Patient presented with weakness, fall, hypotension, elevated lactic acid, acute kidney injury -found to be in severe sepsis, source likely pneumonia -patient was given 30 mL/kg of IV fluids, -normal systolic blood pressures per is between 90-110 mmHg -will continue maintenance IV fluids -repeat lactic acid has normalized -patient started on vancomycin, Zosyn, Levaquin (03/16) -SARS-CoV-2 negative - influenza A and B is negative, -Urine Legionella and urine strep pneumo antigen obtained and pending (3) Pneumonia: Qualifiers: Laterality: bilateral Lung location: lower lobe of lung Pneumonia type: due to unspecified organism Qualified Code(s): J18.9 - Pneumonia, unspecified organism Code(s): J18.9 - Pneumonia, unspecified organism Status: Acute Assessment and Plan: Chest x-ray reviewed, bilateral infiltrates due to pneumonia -continue supplemental oxygen -continue antibiotics as above -chest x-ray this a.m. shows Patchy bilateral lung disease at the left lower lung zone with improvement in the right lower lung zone and worsening in the left lower lung zone which could represent pneumonia, atelectasis, pulmonary edema or some combination thereof.. -continue bronchodilators (4) NATALIO (acute kidney injury): Code(s): N17.9 - Acute kidney failure, unspecified Status: Acute Assessment and Plan: Acute kidney injury is likely related to severe sepsis, infection, hypovolemia, decreased p.o. intake -adequately fluid-resuscitated the ER -continue maintenance IV fluids -lactic acidosis -will insert Sanabria for accurate I's and O's -continue to monitor renal function, electrolytes and urine output -BUN and creatinine improving (5) Parkinson's disease: Code(s): G20 - Parkinson's disease Status: Acute Assessment and Plan: Patient has a history of Parkinson's disease for the last 25 years as per his -he has a deep brain stimulator -also on clozapine and is followed at [facility] for his Parkinson's disease -Sinemet currently on hold due to small-bowel obstruction (6) DVT prophylaxis: Code(s): Z29.9 - Encounter for prophylactic measures, unspecified Status: Acute Assessment and Plan: SubQ heparin Additional Plan Nutrition: NPO, Stress ulcer prophylaxis: Protonix Discussed with was trended discussed with her daughter and son regarding surgery and will get back to us Code status: DNR Critical care time spent: 33 minutes This dictation may have been done utilizing a voice recognition system. Attempts have been made to correct errors. However, there may be uncorrected grammatical, spelling, and recognition errors present. Due to a high probability of clinically significant, life threatening deterioration, the patient required my highest level of preparedness to intervene emergently and I personally spent this critical care time directly and personally managing the patient. This critical care time included obtaining a history; examini
--- NOTE | 2022-03-17 10:52 | PM.CNGS ---
Assessment and Plan Assessment and plan (1) Obstructed umbilical hernia: Code(s): K42.0 - Umbilical hernia with obstruction, without gangrene Status: Acute Assessment and Plan: long d/w re: surgical repair, pt is obviously poor surgical candidate but is obstructed, will likely need SBR as well, to d/w family, if decision to proceed c surgery will get anesthesia consult prior to surgery (2) Sepsis: Qualifiers: Sepsis acute organ dysfunction status: unspecified Sepsis type: sepsis due to unspecified organism Qualified Code(s): A41.9 - Sepsis, unspecified organism Code(s): A41.9 - Sepsis, unspecified organism Status: Acute Assessment and Plan: likely secondary to aspiration PNA, cont abx and supportive care (3) Parkinson's disease: Code(s): G20 - Parkinson's disease Status: Acute Assessment and Plan: worsening and likely nearing end stage at this point, is very reasonable and aware, pt DNR/DNI History of Present Illness Consult details Consult date: 03/17/22 Reason for consult: abdominal pain Requesting physician: Adeola Alexander MD Narrative: Pt is a 72 y/o M presenting to hospital c sepsis likely secondary to aspiration pneumonia. Pt very debilitated from long-standing Parkinsons'. Pt has been since admitted to ICU for cont care. Pt is DNR/DNI. Pt found to have N/V, abd pain and workup, including imaging, significant for incarcerated [facility] SBO. Pt had NG placed c 4-5 L of decompression. Review of Systems Review of Systems: ROS unobtainable: Yes unobtainable due to medical condition and unobtainable due to mental status PMF Past Medical History Medical History Diet-controlled diabetes mellitus Parkinson's disease Parkinson's disease dementia Psoriasis Surgical History Surgical History History of left ankle joint replacement Status post deep brain stimulator placement Family History Family History Other Acute myocardial infarction Atrial fibrillation Cerebrovascular accident Hypertension Social History Social History Social History: Surrogate decision maker: Norma Lammer, spouse. Code status: Do not resuscitate. 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 Spiritual care concerns: No Meds Home Medications and Allergies Home Medications Medication Instructions Recorded Confirmed Type atenolol 25 mg tablet 12.5 mg PO DAILY 06/07/21 03/16/22 History carbidopa 25 mg-levodopa 100 mg See Rx Instructions .ROUTE .COMPLEX 06/07/21 03/16/22 History tablet hydrochlorothiazide 25 mg tablet 25 mg PO DAILY 06/07/21 03/16/22 History mirabegron 25 mg tablet,extended 50 mg PO DAILY 06/07/21 03/16/22 History release 24 hr pramipexole 1 mg tablet 1 mg PO TID 06/07/21 03/16/22 History clozapine 25 mg PO DAILY 03/16/22 03/16/22 History escitalopram oxalate 10 mg PO DAILY 03/16/22 03/16/22 History quetiapine 75 mg PO HS 03/16/22 03/16/22 History Allergies Allergy/AdvReac Type Severity Reaction Status Date / Time No Known Allergies Allergy Verified 09/20/16 19:39 Vital Signs Vital Signs - 24 hr 03/16/22 12:00 03/16/22 13:26 03/16/22 13:30 Temperature 36.4 C Pulse Rate 84 83 81 Respiratory Rate 26 H 22 H 20 Blood Pressure 110/68 Pulse Oximetry 94 95 03/16/22 13:36 03/16/22 14:00 03/16/22 16:00 Temperature 36.8 C Pulse Rate 81 86 80 Respiratory Rate 20 30 H Blood Pressure 105/70 Pulse Oximetry 91 92
[2022-03-17 12:14] LABS: Glucose Point of Care 130 mg/dl (65-105)
[2022-03-17] MEDS: PANTOPRAZOLE SODIUM IV 40 MG VIAL IV PUSH (12:22)
[2022-03-17] MEDS: HEPARIN SODIUM 5,000 UNITS/ML VIAL 5000 UNITS SUB-Q (12:22)
[2022-03-17] MEDS: SODIUM CHLORIDE 0.9% IV 1,000 ML 150 ML IV CONT ×2 (13:51→21:21)
[2022-03-17 17:23] LABS: Glucose Point of Care 132 mg/dl (65-105)
--- NOTE | 2022-03-17 18:07 | PM.IMPN ---
Progress Note: A&P Assessment and Plan (1) Small bowel obstruction: Code(s): K56.609 - Unspecified intestinal obstruction, unspecified as to partial versus complete obstruction Status: Acute Assessment and Plan: Patient tried to have some clear liquids and had an episode of nausea and vomiting, 03/16: CT scan of the abdomen and pelvis: 1. Small bowel obstruction secondary to an umbilical hernia. 2. Multifocal pneumonia. 3. Small pleural effusions. 4. Gallstones. Gallbladder distention may be secondary to fasting and bowel obstruction. NG tube was inserted with approximately 3.5 L of NG drainage overnight and 1 L NG drainage is this morning -appreciate surgical evaluation, family is deciding whether to go for surgery or not 03/17/2022 interval history: patient is 72-year-old male with long history of Parkinson's and recurrence fall was brought emergency department for generalized weakness unfortunately patient is quite somnolent unable to provide any review of symptoms or history, upon arrival to suspicion for sepsis as patient was hypotensive, lactic acidosis and NATALIO, patient was vigorously a hydrated, patient was found to have obstructive inguinal hernia, surgery was recommended and family was debating what hospice, currently on NG tube, chest x-ray showed bilateral pneumonia, treated Levaquin, Zosyn and vancomycin, blood culture no growth so far patient is seen by taper machine and appreciate. (2) Severe sepsis: Code(s): A41.9 - Sepsis, unspecified organism; R65.20 - Severe sepsis without septic shock Status: Acute Assessment and Plan: Patient presented with weakness, fall, hypotension, elevated lactic acid, acute kidney injury -found to be in severe sepsis, source likely pneumonia -patient was given 30 mL/kg of IV fluids, -normal systolic blood pressures per is between 90-110 mmHg -will continue maintenance IV fluids -repeat lactic acid has normalized -patient started on vancomycin, Zosyn, Levaquin (03/16) -SARS-CoV-2 negative - influenza A and B is negative, -Urine Legionella and urine strep pneumo antigen obtained and pending (3) Pneumonia: Qualifiers: Laterality: bilateral Lung location: lower lobe of lung Pneumonia type: due to unspecified organism Qualified Code(s): J18.9 - Pneumonia, unspecified organism Code(s): J18.9 - Pneumonia, unspecified organism Status: Acute Assessment and Plan: Chest x-ray reviewed, bilateral infiltrates due to pneumonia -continue supplemental oxygen -continue antibiotics as above -chest x-ray this a.m. shows Patchy bilateral lung disease at the left lower lung zone with improvement in the right lower lung zone and worsening in the left lower lung zone which could represent pneumonia, atelectasis, pulmonary edema or some combination thereof.. -continue bronchodilators (4) NATALIO (acute kidney injury): Code(s): N17.9 - Acute kidney failure, unspecified Status: Acute Assessment and Plan: Acute kidney injury is likely related to severe sepsis, infection, hypovolemia, decreased p.o. intake -adequately fluid-resuscitated the ER -continue maintenance IV fluids -lactic acidosis -will insert Sanabria for accurate I's and O's -continue to monitor renal function, electrolytes and urine output -BUN and creatinine improving (5) Parkinson's disease: Code(s): G20 - Parkinson's disease Status: Acute Assessment and Plan: Patient has a history of Parkinson's disease for the last 25 years as per his -he has a deep brain stimulator -also on clozapine and is followed at [facility] for his Parkinson's disease -Sinemet currently on hold due to small-bowel obstruction (6) DVT prophylaxis: Code(s): Z29.9 - Encounter for prophylactic measures, unspecified Status: Acute Assessment and Plan: SubQ heparin Subjective Date/time seen: 03/17/22 18:07 03/17/2022 interval history: tere
[2022-03-17 20:53] LABS: Glucose Point of Care 119 mg/dl (65-105)
[2022-03-18] VITALS (67 sets, daily range): BP systolic 84–138; BP diastolic 62–77; PULSE 77–91; RESP 13–28; TEMP 36.1–37.2; O2SAT 89–97
[2022-03-18] MEDS: ALBUTEROL SULFATE NEB 2.5 MG/3 ML INH 5 MG INHALATION ×3 (02:27→20:27)
[2022-03-18] MEDS: IPRATROPIUM BR 0.02% INH SOLN 0.5 MG/2.5 ML VIAL INHALATION ×3 (02:27→20:26)
[2022-03-18 07:18] LABS: Glucose Point of Care 112 mg/dl (65-105)
--- NOTE | 2022-03-18 07:20 | WPDHPUPDATE1 ---
History and Physical Update Update Date/Time: 03/18/22 07:20 History and Physical has been reviewed, including an updated exam of the patient. There are NO changes in the patient's condition. Risks, benefits, and alternatives have been discussed and questions answered. Patient agrees to proceed with procedure. After long d/w family decision to proceed with surgery, exploratory laparotomy, possible bowel resection.
--- NOTE | 2022-03-18 07:31 | WPDANESEPPF ---
Anes - Initial Pre Proc Eval Procedure: Operation Date: 03/18/22 07:30 Proposed Procedures p Exploratory Laparotomy, Pos Bowel Resec - Jeanne Galaviz MD Date/Time: 03/18/22 07:31 Surgeon: Leon Pickens MD Pre Op Diagnosis: Pneumonia, Sepsis, Acute Hypoxic Resp Failure Patient Data Age: 72 Gender: M Height: 1.88 m Weight: 94.8 kg Last Vital Signs Temp 36.1 C L 03/18/22 04:00 Pulse 83 03/18/22 06:00 Resp 26 H 03/18/22 06:00 BP 119/77 03/18/22 06:00 Pulse Ox 90 03/18/22 06:00 Allergies Allergy/AdvReac Type Severity Reaction Status Date / Time No Known Allergies Allergy Verified 09/20/16 19:39 Home Medications Medication Instructions Recorded Confirmed Type atenolol 25 mg tablet 12.5 mg PO DAILY 06/07/21 03/16/22 History carbidopa 25 mg-levodopa 100 mg See Rx Instructions .ROUTE .COMPLEX 06/07/21 03/16/22 History tablet hydrochlorothiazide 25 mg tablet 25 mg PO DAILY 06/07/21 03/16/22 History mirabegron 25 mg tablet,extended 50 mg PO DAILY 06/07/21 03/16/22 History release 24 hr pramipexole 1 mg tablet 1 mg PO TID 06/07/21 03/16/22 History clozapine 25 mg PO DAILY 03/16/22 03/16/22 History escitalopram oxalate 10 mg PO DAILY 03/16/22 03/16/22 History quetiapine 75 mg PO HS 03/16/22 03/16/22 History Laboratory Tests 03/17/22 03/17/22 03/17/22 08:05 12:04 17:20 POC Capillary Glucose 144 mg/dl H mg/dl 130 mg/dl H mg/dl 132 mg/dl H mg/dl (65-105) (65-105) (65-105) 03/17/22 03/18/22 20:50 07:09 POC Capillary Glucose 119 mg/dl H mg/dl 112 mg/dl H mg/dl (65-105) (65-105) ECG: Date of Service: 03/16/22 Procedure(s): CA 12 lead EKG Accession Number(s): [id number] cc: ~ Measurements Intervals [place] Rate: 91 P: 23 NH: 145 QRS: 32 QRSD: 90 T: 37 QT: 387 QTc: 477 Interpretive Statements SINUS RHYTHM VENTRICULAR PREMATURE COMPLEXES POSSIBLE LEFT ATRIAL ENLARGEMENT BORDERLINE ST-T WAVE ABNORMALITY- INFERIOR LEADS BASELINE ARTIFACT- I, II, III, AVR, AVL, AVF, V1-V6 ABNORMAL ECG Electronically Signed On 03-16-2022 8:55:52 CDT by Emiliano Joya D.O. Patient hx anesthesia problems: none Family hx anesthesia problems: none Results Review: All pre-operative results and documents have been reviewed as part of the pre-operative evaluation. [facility] Past Medical History Medical History Diet-controlled diabetes mellitus Parkinson's disease Parkinson's disease dementia Psoriasis Surgical History Surgical History History of left ankle joint replacement Status post deep brain stimulator placement Family History Family History Other Acute myocardial infarction Atrial fibrillation Cerebrovascular accident Hypertension Social History Social History Social History: Surrogate decision maker: Norma Brown, spouse. Code status: Do not resuscitate. 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 Spiritual care concerns: No Anes - Eval Final PreProcedure Day of Procedure 03/18/22 07:31 Patient weight: overweight Heart: regular rate and rhythm Lungs: clear to auscultation and normal air movement Airway: Mallampati scale class II Neurological: confused Last
--- NOTE | 2022-03-18 09:02 | W.PM.PROC2 ---
Procedure Note - Detailed Date of Procedure 03/18/22 Pre-op Diagnosis incarcerated umbilical hernia with small bowel obstruction Post-op Diagnosis Same Procedure Performed exploratory laparotomy, small-bowel resection, repair of incarcerated umbilical hernia Surgeon Jeanne Galaviz MD Anesthesia General Indications 72-year-old male with multiple medical issues including Parkinson's disease presenting with small-bowel obstruction secondary to incarcerated umbilical hernia Findings incarcerated umbilical hernia with a small-bowel obstruction, incarcerated small bowel loop with signs of ischemia Description of Procedure The patient was taken to the operating room placed in the supine position. After adequate induction of general anesthesia, the patient was prepped and draped in the normal sterile fashion. A time-out was then done to verify the patient's identity, as well as the procedure being performed. I began by making a midline incision in the periumbilical area. This was carried down into the peritoneal cavity. Upon getting into the peritoneal cavity, there was noted to be some dark ascitic fluid. I was able to locate the loop of small bowel that was incarcerated in this umbilical hernia. I then carefully reduced the small bowel out of the hernia. The small bowel was limited to be dusky and there was an area transmural ischemia. Given this, I resected this small intestine. This was done with a SIOBHAN 55 stapler x2. The mesenteric attachments were taken down with the LigaSure device. The small bowel now be sent to pathology for further review and measured approximately 10 cm. I then performed a [id number] functional end-to-end anastomosis using the SIOBHAN 55 stapler followed by the TX 60. I then closed the mesenteric defect with a running 3-0 silk suture. I then ran the entirety of the small bowel and no other pathology was noted. I then resected the hernia sac. Given the incarcerated small bowel and the fluid I decided not to place mesh. The fascia was closed with a looped 0 PDS suture. This included the closure of the umbilical defect. I then reapproximated the umbilicus to the fascial repair using a 2-0 Vicryl U-stitch. The skin was then closed with skin jasmyn. Patient tolerated the procedure relatively well and will be left intubated this time. He will be transferred back to the ICU in critical condition. Estimated Blood Loss 20 Urine Output 200 Drains No Packing No Pathology Yes Complications No immediate complications Condition Critical Disposition ICU [facility] Billing Surgery - Charge Forward: Surgery Billing
[2022-03-18] MEDS: dexmedeTOMIDine 400 MCG/100 ML 400 MCG/100 ML BAG IV CONT (09:23)
[2022-03-18] MEDS: fentaNYL CITRATE INJ (*CRX) 100 MCG/2 ML VIAL 50 MCG IV PUSH (09:33)
[2022-03-18 09:47] LABS: Basophils Absolute Auto 0.1 K/mm3 (0.0-0.1); Basophils Percent Auto 0.6 % (0.2-1.2); Eosinophils Percent Auto 0.1 % (0-4.4); Hematocrit 47.4 % (42.0-52.0); Hemoglobin 14.6 g/dL (14.0-18.0); Immature Granulocyte Absolute 0.05 K/mm3 (0.00-0.031); Immature Granulocyte Percent A 0.5 % (0-0.5); Lymphocytes Absolute Auto 0.43 K/mm3 (0.9-3.2); Lymphocytes Percent Auto 3.9 % (18.3-44.2); Mean Corpuscular HGB Conc 30.8 g/dl (32-36); Mean Corpuscular Hemoglobin 30.1 pg (26-34); Mean Corpuscular Volume 97.7 fl (80-100); Mean Platelet Volume 11.8 fl (7.4-10.4); Monocytes Absolute Auto 0.6 K/mm3 (0.1-0.6); Neutrophils Absolute Auto 9.9 K/mm3 (1.3-6.7); Neutrophils Percent Auto 89.9 % (45.5-73.1); Platelet Count Result 195 k/mm3 (150-375); Red Blood Count 4.85 M/mm3 (4.6-6.20)
--- NOTE | 2022-03-18 09:52 | WPDINTPN ---
Progress Note: A&P Assessment and Plan (1) Small bowel obstruction: Code(s): K56.609 - Unspecified intestinal obstruction, unspecified as to partial versus complete obstruction Status: Acute Assessment and Plan: Patient tried to have some clear liquids and had an episode of nausea and vomiting, 03/16: CT scan of the abdomen and pelvis: 1. Small bowel obstruction secondary to an umbilical hernia. 2. Multifocal pneumonia. 3. Small pleural effusions. 4. Gallstones. Gallbladder distention may be secondary to fasting and bowel obstruction. 03/18: status post ex lap, small-bowel resection for ischemic bowel, repair of incarcerated umbilical hernia -surgery following the patient (2) Severe sepsis: Code(s): A41.9 - Sepsis, unspecified organism; R65.20 - Severe sepsis without septic shock Status: Acute Assessment and Plan: Patient presented with weakness, fall, hypotension, elevated lactic acid, acute kidney injury -found to be in severe sepsis, source likely pneumonia, received adequate fluids on admission -continue maintenance IV fluids -normal systolic blood pressures per is between 90-110 mmHg -will continue maintenance IV fluids -repeat lactic acid has normalized -continue vancomycin, Zosyn, Levaquin (03/16) -SARS-CoV-2 negative - influenza A and B is negative, -Urine Legionella and urine strep pneumo antigen obtained and pending (3) Pneumonia: Qualifiers: Laterality: bilateral Lung location: lower lobe of lung Pneumonia type: due to unspecified organism Qualified Code(s): J18.9 - Pneumonia, unspecified organism Code(s): J18.9 - Pneumonia, unspecified organism Status: Acute Assessment and Plan: Chest x-ray reviewed, bilateral infiltrates due to pneumonia -continue supplemental oxygen -continue antibiotics as above -chest x-ray this a.m. shows Interval decrease in density of bilateral airspace opacities most likely improving multifocal pneumonia. -continue bronchodilators (4) NATALIO (acute kidney injury): Code(s): N17.9 - Acute kidney failure, unspecified Status: Acute Assessment and Plan: Acute kidney injury is likely related to severe sepsis, infection, hypovolemia, decreased p.o. intake -adequately fluid-resuscitated the ER -continue maintenance IV fluids -lactic acidosis -Sanabria for accurate I's and O's -continue to monitor renal function, electrolytes and urine output -urine output has been good -BUN and creatinine improving (5) Parkinson's disease: Code(s): G20 - Parkinson's disease Status: Acute Assessment and Plan: Patient has a history of Parkinson's disease for the last 25 years as per his -he has a deep brain stimulator -also on clozapine and is followed at [facility] for his Parkinson's disease -Sinemet currently on hold due to small-bowel obstruction and status post surgery (6) DVT prophylaxis: Code(s): Z29.9 - Encounter for prophylactic measures, unspecified Status: Acute Assessment and Plan: SubQ heparin Additional Plan Nutrition: NPO, Stress ulcer prophylaxis: Protonix Discussed with son and daughter in rounds today and updated with patient's condition and plan of care. I answered all questions Code status: Full code Critical care time spent: 34 minutes This dictation may have been done utilizing a voice recognition system. Attempts have been made to correct errors. However, there may be uncorrected grammatical, spelling, and recognition errors present. Due to a high probability of clinically significant, life threatening deterioration, the patient required my highest level of preparedness to intervene emergently and I personally spent this critical care time directly and personally managing the patient. This critical care time included obtaining a history; examining the patient; pulse oximetry; ordering and review of studies; arranging urgent treatment with dev
[2022-03-18] MEDS: FENTANYL 2,500MCG/NS250ML(*CRX 2,500 MCG/250 ML BAG IV CONT (09:53)
[2022-03-18] MEDS: SODIUM CHLORIDE 0.9% IV 1,000 ML 75 ML IV CONT (09:55)
[2022-03-18 09:56] LABS: INR 1.6; Prothrombin Time 18.9 Seconds (11.1-14.7)
[2022-03-18 09:58] LABS: Alanine Aminotransferase 10 U/L (6-50); Albumin Level 3.4 g/dL (3.5-5.1); Alkaline Phosphatase 78 U/L (38-126); Anion Gap 11 mmol/L (8-16); Aspartate Amino Transferase 33 U/L (17-59); Bilirubin,Total 0.9 mg/dL (0.2-1.3); Blood Urea Nitrogen 61 mg/dL (9-20); Calcium 7.8 mg/dL (8.4-10.2); Carbon Dioxide 23 mmol/L (22-30); Chloride 113 mmol/L (98-107); Estimated CRCL calculation 33 ml/min; Estimated Glomerular Filt Rate 30; Glucose 135 mg/dL (65-110); Lactic Acid Reflex 1.3 mmol/L (0.7-2.0); Magnesium 2.5 mg/dL (1.6-2.3); Partial Thromboplastin Time 25.7 SECONDS (22.3-36.8); Phosphorus 4.6 mg/dL (2.5-4.5); Potassium 3.3 mmol/L (3.4-5.0); Sodium 147 mmol/L (137-145)
[2022-03-18] MEDS: HEPARIN SODIUM 5,000 UNITS/ML VIAL 5000 UNITS SUB-Q ×2 (10:18→21:26)
[2022-03-18] MEDS: PANTOPRAZOLE SODIUM IV 40 MG VIAL IV PUSH (10:19)
[2022-03-18] MEDS: POTASSIUM CHLORIDE INJ 40 MEQ in SODIUM CHLORIDE 0.9% IV 500 ML 130 MEQ IVPB (11:52)
[2022-03-18] MEDS: LACTATED RINGERS 1,000 ML 100 ML IV CONT ×2 (12:00→21:27)
--- NOTE | 2022-03-18 14:45 | PM.IMPN ---
Progress Note: A&P Assessment and Plan (1) Small bowel obstruction: Code(s): K56.609 - Unspecified intestinal obstruction, unspecified as to partial versus complete obstruction Status: Acute Assessment and Plan: Patient tried to have some clear liquids and had an episode of nausea and vomiting, 03/16: CT scan of the abdomen and pelvis: 1. Small bowel obstruction secondary to an umbilical hernia. 2. Multifocal pneumonia. 3. Small pleural effusions. 4. Gallstones. Gallbladder distention may be secondary to fasting and bowel obstruction. NG tube was inserted with approximately 3.5 L of NG drainage overnight and 1 L NG drainage is this morning -appreciate surgical evaluation, family is deciding whether to go for surgery or not 03/17/2022 interval history: patient is 72-year-old male with long history of Parkinson's and recurrence fall was brought emergency department for generalized weakness unfortunately patient is quite somnolent unable to provide any review of symptoms or history, upon arrival to suspicion for sepsis as patient was hypotensive, lactic acidosis and NATALIO, patient was vigorously a hydrated, patient was found to have obstructive inguinal hernia, surgery was recommended and family was debating what hospice, currently on NG tube, chest x-ray showed bilateral pneumonia, treated Levaquin, Zosyn and vancomycin, blood culture no growth so far patient is seen by sales order processor and appreciate. 03/18/2022 interval history: patient is 72-year-old male with long history of Parkinson's and recurrence fall was brought emergency department for generalized weakness upon arrival suspicion for sepsis as patient was hypotensive, lactic acidosis and NATALIO, patient was vigorously a hydrated, patient was found to have obstructive inguinal hernia, today patient was taken to the OR and had a surgical repair of a small-bowel obstruction currently intubated and just returned to ICU, discussed with the sales order processor plan is to wean the patient off ventilator and wait for the return of the bowel function, chest x-ray showed bilateral pneumonia, treated Levaquin, Zosyn and vancomycin, blood culture no growth so far patient is seen by sales order processor and appreciate. (2) Severe sepsis: Code(s): A41.9 - Sepsis, unspecified organism; R65.20 - Severe sepsis without septic shock Status: Acute Assessment and Plan: Patient presented with weakness, fall, hypotension, elevated lactic acid, acute kidney injury -found to be in severe sepsis, source likely pneumonia -patient was given 30 mL/kg of IV fluids, -normal systolic blood pressures per is between 90-110 mmHg -will continue maintenance IV fluids -repeat lactic acid has normalized -patient started on vancomycin, Zosyn, Levaquin (03/16) -SARS-CoV-2 negative - influenza A and B is negative, -Urine Legionella and urine strep pneumo antigen obtained and pending (3) Pneumonia: Qualifiers: Laterality: bilateral Lung location: lower lobe of lung Pneumonia type: due to unspecified organism Qualified Code(s): J18.9 - Pneumonia, unspecified organism Code(s): J18.9 - Pneumonia, unspecified organism Status: Acute Assessment and Plan: Chest x-ray reviewed, bilateral infiltrates due to pneumonia -continue supplemental oxygen -continue antibiotics as above -chest x-ray this a.m. shows Patchy bilateral lung disease at the left lower lung zone with improvement in the right lower lung zone and worsening in the left lower lung zone which could represent pneumonia, atelectasis, pulmonary edema or some combination thereof.. -continue bronchodilators (4) NATALIO (acute kidney injury): Code(s): N17.9 - Acute kidney failure, unspecified Status: Acute Assessment and Plan: Acute kidney injury is likely related to severe sepsis, infection, hypovolemia, decreased p.o. intake -adequately fluid-resuscitated the ER -continue maintenance IV fluids -lactic acido
[2022-03-18 14:46] LABS: Glucose Point of Care 115 mg/dl (65-105)
[2022-03-18] MEDS: dexmedeTOMIDine 400 MCG/100 ML 400 MCG/100 ML BAG 11.85 MCG IV CONT (17:22)
[2022-03-18 20:26] LABS: Pneumococcal Antigen Urine Not Detected (Not Detected)
[2022-03-18] MEDS: MINERAL OIL/WHITE PETROLATUM OINTMENT 1 APPLIC EACH EYE (21:27)
[2022-03-19] VITALS (40 sets, daily range): BP systolic 106–133; BP diastolic 57–76; PULSE 74–92; RESP 12–24; TEMP 36.3–37.2; O2SAT 89–97; BMI 27.0
[2022-03-19] MEDS: dexmedeTOMIDine 400 MCG/100 ML 400 MCG/100 ML BAG 11.85 MCG IV CONT (01:38)
[2022-03-19] MEDS: IPRATROPIUM BR 0.02% INH SOLN 0.5 MG/2.5 ML VIAL INHALATION ×4 (02:19→19:59)
[2022-03-19] MEDS: ALBUTEROL SULFATE NEB 2.5 MG/3 ML INH 5 MG INHALATION ×4 (02:19→19:59)
[2022-03-19 05:01] LABS: Alveolar/Arterial O2 Gradient 199.3 mmHg; Base Excess ABG 0.7 mEq/l (+/-2.0); Carboxyhemoglobin 0.3 % THb (0-2.0); Fractional Inspired Oxygen 55 %; HCO3 ABG 24.5 mEq/l (22.0-26.0); Methemoglobin ABG 0.4 %THb (0-1.5); Oxygen Content ABG 19.8 %vol (16.0-22.0); Oxyhemoglobin 97.8 % THb (90.0-100.0); PCO2 ABG 36.6 mmHg (35.0-45.0); PO2 ABG 152.1 mmHg (80.0-100.0); PO2 FiO2 Ratio Arterial Blood 2.77 %; Reduced Hemoglobin 1.5 %THb (0-5.0); Total Hemoglobin 14.2 g/dL (12.0-18.0); pH ABG 7.443 (7.350-7.450)
[2022-03-19 05:02] LABS: Basophils Percent Auto 0.2 % (0.2-1.2); Eosinophils Percent Auto 0.1 % (0-4.4); Hematocrit 42.3 % (42.0-52.0); Hemoglobin 13.5 g/dL (14.0-18.0); Immature Granulocyte Absolute 0.02 K/mm3 (0.00-0.031); Immature Granulocyte Percent A 0.2 % (0-0.5); Lymphocytes Absolute Auto 0.51 K/mm3 (0.9-3.2); Lymphocytes Percent Auto 6.1 % (18.3-44.2); Mean Corpuscular HGB Conc 31.9 g/dl (32-36); Mean Corpuscular Hemoglobin 30.9 pg (26-34); Mean Corpuscular Volume 96.8 fl (80-100); Mean Platelet Volume 11.3 fl (7.4-10.4); Monocytes Absolute Auto 0.6 K/mm3 (0.1-0.6); Monocytes Percent Auto 6.8 % (2.6-8.5); Neutrophils Absolute Auto 7.2 K/mm3 (1.3-6.7); Neutrophils Percent Auto 86.6 % (45.5-73.1); Platelet Count Result 168 k/mm3 (150-375); Red Blood Count 4.37 M/mm3 (4.6-6.20); Red Cell Distribution Width 13.8 % (11.5-14.5); White Blood Count 8.4 K/mm3 (4.5-10.0)
[2022-03-19 05:03] LABS: Device VENTILATOR; Modified Allen's Test Pass; Site Drawn RIGHT BRACHIAL
[2022-03-19 05:04] LABS: Arterial Blood Gas PEEP 8 cmH2O; Arterial Blood Gas Tidal Volume 450 ml; Arterial Blood Gas Vent Mode CMV; Arterial Blood Gas Ventilator rate 20 /MIN
[2022-03-19 05:14] LABS: Lactic Acid Reflex 1.3 mmol/L (0.7-2.0)
[2022-03-19 05:15] LABS: Alanine Aminotransferase 11 U/L (6-50); Albumin Level 3.2 g/dL (3.5-5.1); Alkaline Phosphatase 68 U/L (38-126); Anion Gap 8 mmol/L (8-16); Aspartate Amino Transferase 21 U/L (17-59); Bilirubin,Total 1.1 mg/dL (0.2-1.3); Blood Urea Nitrogen 58 mg/dL (9-20); Calcium 8.3 mg/dL (8.4-10.2); Carbon Dioxide 28 mmol/L (22-30); Chloride 111 mmol/L (98-107); Estimated CRCL calculation 30 ml/min; Estimated Glomerular Filt Rate 27; Glucose 133 mg/dL (65-110); Magnesium 2.7 mg/dL (1.6-2.3); Phosphorus 3.6 mg/dL (2.5-4.5); Potassium 4.6 mmol/L (3.4-5.0); Sodium 147 mmol/L (137-145)
[2022-03-19 06:19] LABS: Legionella pneumophila Ag Ur Not Detected (Not Detected)
[2022-03-19 08:12] LABS: Glucose Point of Care 111 mg/dl (65-105)
[2022-03-19] MEDS: LACTATED RINGERS 1,000 ML 75 ML IV CONT (08:36)
[2022-03-19] MEDS: PANTOPRAZOLE SODIUM IV 40 MG VIAL IV PUSH (08:40)
[2022-03-19] MEDS: HEPARIN SODIUM 5,000 UNITS/ML VIAL 5000 UNITS SUB-Q ×2 (08:40→21:41)
[2022-03-19] MEDS: MINERAL OIL/WHITE PETROLATUM OINTMENT 1 APPLIC EACH EYE (08:41)
--- NOTE | 2022-03-19 09:52 | WPDANESPN ---
Anes - Prog Note Post-Op Date/Time: 03/19/22 09:52 Cardiovascular status: normal Respiratory status: normal Airway patency: baseline Mental status: baseline Post-Op hydration status: normal Vital Signs: Last Vital Signs Temp 36.3 C L 03/19/22 04:00 Pulse 92 03/19/22 09:40 Resp 20 03/19/22 08:22 BP 131/76 03/19/22 07:00 Pulse Ox 96 03/19/22 09:40 Pain Score (VAS): 0 I/O: Intake & Output 03/18/22 03/19/22 03/19/22 23:59 07:59 15:59 Intake Total 7563 866 7374 Output Total 1050 1200 Balance 542 -1050 1000 Laboratory Tests 03/19/22 04:49 03/19/22 04:49 03/16/22 03/18/22 03/18/22 17:10 09:40 09:40 WBC 11.0 H RBC 4.85 Hgb 14.6 Hct 47.4 MCV 97.7 MCH 30.1 MCHC 30.8 L RDW 14.0 Plt Count 195 MPV 11.8 H Immature Gran % (Auto) 0.5 Neut % (Auto) 89.9 H Lymph % (Auto) 3.9 L [place] % (Auto) 5.0 Eos % (Auto) 0.1 Baso % (Auto) 0.6 Lymph # (Auto) 0.43 L [place] # (Auto) 0.6 Eos # (Auto) 0.0 Baso # (Auto) 0.1 Abs Immat Gran (auto) 0.05 H Absolute Neuts (auto) 9.9 H Absolute Nucleated RBC 0.0 Nucleated RBC % 0.0 PT 18.9 H INR 1.6 APTT 25.7 Puncture Site ABG pH ABG pCO2 ABG pO2 ABG PO2/FiO2 Ratio ABG HCO3 ABG O2 Saturation ABG O2 Content ABG Base Excess A-a Gradient Oxyhemoglobin Carboxyhemoglobin Methemoglobin Reduced Hemoglobin Total Hemoglobin O2 Delivery Device O2 Liters/Min Minute Volume Vent Rate Vent Mode FiO2 Tidal Volume PEEP Peak Inspir Pressure Pressure Support Sodium Potassium Chloride Carbon Dioxide Anion Gap BUN Creatinine Estim Creat Clear Calc Estimated GFR Glucose POC Capillary Glucose Lactic Acid Calcium Phosphorus Magnesium Total Bilirubin AST ALT Alkaline Phosphatase Total Protein Albumin Ur L.pneumophila Ag Not detected Urine Pneumococcal Ag Not detected 03/18/22 03/18/22 03/18/22 09:40 09:40 14:12 WBC RBC Hgb Hct MCV MCH MCHC RDW Plt Count MPV Immature Gran % (Auto) Neut % (Auto) Lymph % (Auto) [place] % (Auto) Eos % (Auto) Baso % (Auto) Lymph # (Auto) [place] # (Auto) Eos # (Auto) Baso # (Auto) Abs Immat Gran (auto) Absolute Neuts (auto) Absolute Nucleated RBC Nucleated RBC % PT INR APTT Puncture Site ABG pH ABG pCO2 ABG pO2 ABG PO2/FiO2 Ratio ABG HCO3 ABG O2 Saturation ABG O2 Content ABG Base Excess A-a Gradient Oxyhemoglobin Carboxyhemoglobin Methemoglobin Reduced Hemoglobin Total Hemoglobin O2 Delivery Device O2 Liters/Min Minute Volume Vent Rate Vent Mode FiO2 Tidal Volume PEEP Peak Inspir Pressure Pressure Support Sodium 147 H Potassium 3.3 L Chloride 113 H Carbon Dioxide 23 Anion Gap 11 BUN 61 H Creatinine 2.20 H Estim Creat Clear Calc 33 Estimated GFR 30 L Glucose 135 H POC Capillary Glucose 115 H Lactic Acid 1.3 Calcium 7.8 L Phosphorus 4.6 H Magnesium 2.5 H Total Bilirubin 0.9 AST 33 ALT 10 Alkaline Phosphatase 78 Total Protein 6.0 L Albumin 3.4 L Ur L.pneumophila Ag Urine Pneumococcal Ag 03/19/22 03/19/22 03/19/22 04:49 04:49 04:49 WBC 8.4 RBC 4.37 L Hgb 13.5 L Hct 42.3 MCV 96.8 MCH 30.9 MCHC 31.9 L RDW 13.8 Plt Count 168 MPV 11.3 H Immature Gran % (Auto) 0.2 Neut % (Auto) 86.6 H Lymph % (Auto) 6.1 L [place] % (Auto) 6.8 Eos % (Auto) 0.1 Baso % (Auto) 0.2 Lymph # (Auto) 0.51 L [place] # (Auto) 0.6 Eos # (Auto) 0.0 Baso # (Auto) 0.0 Abs Immat Gran (auto) 0.02 Absolute Neuts (auto) 7.2 H Absolute Nucleated RBC 0.0 Nucleated RBC % 0.0 PT INR APTT Punc
[2022-03-19 11:24] LABS: Alveolar/Arterial O2 Gradient 142.5 mmHg; Base Excess ABG 0.9 mEq/l (+/-2.0); Fractional Inspired Oxygen 45 %; HCO3 ABG 24.9 mEq/l (22.0-26.0); Oxygen Content ABG 19.4 %vol (16.0-22.0); Oxygen Saturation ABG 98.8 % (95.0-100.0); Oxyhemoglobin 97.3 % THb (90.0-100.0); PCO2 ABG 37.7 mmHg (35.0-45.0); PO2 ABG 135.5 mmHg (80.0-100.0); PO2 FiO2 Ratio Arterial Blood 3.01 %; pH ABG 7.437 (7.350-7.450)
[2022-03-19 11:26] LABS: Device VENTILATOR; Modified Allen's Test Pass; Site Drawn LEFT RADIAL
[2022-03-19 11:27] LABS: Arterial Blood Gas PEEP 5 cmH2O; Arterial Blood Gas Pressure Support 8 cmH2O; Arterial Blood Gas Vent Mode SPONTANEOUS
[2022-03-19 11:52] LABS: Glucose Point of Care 108 mg/dl (65-105)
--- NOTE | 2022-03-19 12:34 | WPDINTPN ---
Progress Note: A&P Assessment and Plan (1) Acute respiratory failure: Code(s): J96.00 - Acute respiratory failure, unspecified whether with hypoxia or hypercapnia Status: Acute Assessment and Plan: Respiratory failure likely secondary to anesthesia and surgery. Patient was intubated in the OR on 03/18/2022 -patient remains on CMV mode of ventilation, peep of 8 and 50% FiO2 -chest x-ray and ABGs reviewed -will decrease PEEP to 5 and 40% FiO2, will stop sedation and place patient on SBT and evaluate for extubation -patient did well on SBT, RSBI was low, patient was awake, follows simple commands, had a good cough. -patient was successfully extubated on 03/19/2022 (2) Small bowel obstruction: Code(s): K56.609 - Unspecified intestinal obstruction, unspecified as to partial versus complete obstruction Status: Acute Assessment and Plan: Patient tried to have some clear liquids and had an episode of nausea and vomiting, 03/16: CT scan of the abdomen and pelvis: 1. Small bowel obstruction secondary to an umbilical hernia. 2. Multifocal pneumonia. 3. Small pleural effusions. 4. Gallstones. Gallbladder distention may be secondary to fasting and bowel obstruction. 03/18: status post ex lap, small-bowel resection for ischemic bowel, repair of incarcerated umbilical hernia -surgery following the patient -continue pain control and IV fluids for now (3) Severe sepsis: Code(s): A41.9 - Sepsis, unspecified organism; R65.20 - Severe sepsis without septic shock Status: Acute Assessment and Plan: Patient presented with weakness, fall, hypotension, elevated lactic acid, acute kidney injury -found to be in severe sepsis, source likely pneumonia, received adequate fluids on admission -continue maintenance IV fluids -normal systolic blood pressures per is between 90-110 mmHg -continue vancomycin, Zosyn, Levaquin (03/16) -SARS-CoV-2 negative - influenza A and B is negative, -Urine Legionella and urine strep pneumo antigen: Not detected (4) Pneumonia: Qualifiers: Laterality: bilateral Lung location: lower lobe of lung Pneumonia type: due to unspecified organism Qualified Code(s): J18.9 - Pneumonia, unspecified organism Code(s): J18.9 - Pneumonia, unspecified organism Status: Acute Assessment and Plan: Chest x-ray reviewed, bilateral infiltrates due to pneumonia -continue supplemental oxygen -continue antibiotics as above -chest x-ray this a.m. shows Airspace opacities in the lower lung zones with interval improvement, consistent with pneumonia -continue bronchodilators (5) NATALIO (acute kidney injury): Code(s): N17.9 - Acute kidney failure, unspecified Status: Acute Assessment and Plan: Acute kidney injury is likely related to severe sepsis, infection, hypovolemia, decreased p.o. intake -adequately fluid-resuscitated the ER -continue maintenance IV fluids -San[place]ria for accurate I's and O's -continue to monitor renal function, electrolytes and urine output -urine output has been good -BUN and creatinine improving (6) Parkinson's disease: Code(s): G20 - Parkinson's disease Status: Acute Assessment and Plan: Patient has a history of Parkinson's disease for the last 25 years as per his -he has a deep brain stimulator -also on clozapine and is followed at [facility] for his Parkinson's disease -Sinemet and Mirapex currently on hold due to small-bowel obstruction and status post surgery (7) DVT prophylaxis: Code(s): Z29.9 - Encounter for prophylactic measures, unspecified Status: Acute Assessment and Plan: SubQ heparin Additional Plan Nutrition: NPO, Stress ulcer prophylaxis: Protonix Discussed with patient's spouse in rounds today and updated her with patient's condition and plan of care. I answered all questions. She is aware that patient is going to be placed on SBT and evaluated for ex
--- NOTE | 2022-03-19 12:55 | PM.PNGS ---
Progress Note: A&P Assessment and Plan (1) Obstructed umbilical hernia: Code(s): K42.0 - Umbilical hernia with obstruction, without gangrene Status: Acute Assessment and Plan: s/p SBR, repair, doing well, await bowel fxn, cont NG and bowel rest for now Subjective Subjective Date/Time Seen: 03/19/22 12:55 extubated this am, doing well, pain controlled, await bowel fxn Review of Systems Review of Systems: ROS unobtainable: Yes unobtainable due to medical condition Exam Const: General: cooperative, comfortable and no acute distress Orientation/consciousness: oriented to person and oriented to place Resp: Auscultation: diminished lung sounds Cardio: Rate: regular rate Rhythm: regular rhythm GI: Inspection: normal to inspection, distended and incision GI Palp: Yes Soft to palpation, Yes Tenderness to palpation present (GI) and No Guarding due to palpation present (GI) Objective Data Vital Signs Vital Signs: Vital Signs - 24 hr 03/18/22 13:05 03/18/22 13:19 03/18/22 13:27 Temperature Pulse Rate 84 83 83 Respiratory Rate 19 19 18 Blood Pressure 106/69 Pulse Oximetry 94 03/18/22 13:49 03/18/22 13:51 03/18/22 14:00 Temperature Pulse Rate 88 91 87 Respiratory Rate 20 22 H Blood Pressure Pulse Oximetry 95 95 03/18/22 14:01 03/18/22 15:00 03/18/22 15:01 Temperature Pulse Rate 86 91 90 Respiratory Rate 22 H 18 18 Blood Pressure 105/69 113/66 Pulse Oximetry 95 94 94 03/18/22 16:00 03/18/22 16:01 03/18/22 16:04 Temperature 36.9 C Pulse Rate 84 84 84 Respiratory Rate 18 20 19 Blood Pressure 107/65 107/65 Pulse Oximetry 95 95 95 03/18/22 16:51 03/18/22 17:00 03/18/22 17:01 Temperature Pulse Rate 81 82 82 Respiratory Rate 19 19 Blood Pressure 110/66 Pulse Oximetry 95 96 96 03/18/22 17:22 03/18/22 18:00 03/18/22 19:00 Temperature 37.0 C Pulse Rate 83 80 80 Respiratory Rate 17 22 H 22 H Blood Pressure 114/67 115/70 Pulse Oximetry 96 96 03/18/22 20:00 03/18/22 20:20 03/18/22 20:28 Temperature 36.2 C L Pulse Rate 82 79 81 Respiratory Rate 20 18 Blood Pressure 118/70 Pulse Oximetry 96 96 03/18/22 20:42 03/18/22 21:00 03/18/22 22:00 Temperature Pulse Rate 81 79 78 Respiratory Rate 20 19 20 Blood Pressure 114/69 117/70 Pulse Oximetry 96 96 03/18/22 23:00 03/18/22 23:31 03/19/22 00:00 Temperature 36.3 C L Pulse Rate 77 77 76 Respiratory Rate 20 18 Blood Pressure 126/69 127/70 Pulse Oximetry 96 96 96 03/19/22 01:00 03/19/22 01:38 03/19/22 02:00 Temperature Pulse Rate 79 79 77 Respiratory Rate 18 18 18 Blood Pressure 126/72 128/67 Pulse Oximetry 96 96 03/19/22 02:20 03/19/22 02:23 03/19/22 02:35 Temperature Pulse Rate 78 80 76 Respiratory Rate 22 H 22 H Blood Pressure Pulse Oximetry 96 03/19/22 03:00 03/19/22 04:00 03/19/22 04:53 Temperature 36.3 C L Pulse Rate 79 74 78 Respiratory Rate 18 20 Blood Pressure 127/67 129/66 Pulse Oximetry 96 97 96 03/19/22 05:00 03/19/22 06:00 03/19/22 07:00 Temperature Pulse Rate 80 80 77 Respiratory Rate 18 18 18 Blood Pressure 133/63 131/65 131/76 Pulse Oximetry 96 97 96 03/19/22 07:31 03/19/22 07:33 03/19/22 08:00 Temperature Pulse Rate 76 76 75 Respiratory Rate 18 18 20 Blood Pressure 131/63 Pulse Oximetry 96 03/19/22 08:12 03/19/22 08:13 03/19/22 08:20 Temperature Pulse Rate 77 78 76 Respiratory Rate 18 20 Blood Pressure Pulse Oximetry 96 03/19/22 08:22 03/19/22 09:40 03/19/22 10:00 Temperature Pulse Rate 76 92 87 Respiratory Rate 20 16 Blood Pressure 118/64 Pulse Oximetry 96 96 03/19/22 10:15 03/19/22 10:43 03/19/22 11:00 Temperature Pulse Rate 87 90 86 Respiratory Rate 14 12 Blood Pressure 120/63 Pulse Oximetry 97 97 03/19/22 11:11 03/19/22 11:35 03/19/22 11:40 Temperature 36.7 C Pulse Rate 87 89 90 Respiratory Rate 18 Blood Pressure 116/6
[2022-03-19 12:59] LABS: Vancomycin Trough 7.6 ug/mL (10.0-20.0)
--- NOTE | 2022-03-19 13:40 | PM.IMPN ---
Progress Note: A&P Assessment and Plan (1) Small bowel obstruction: Code(s): K56.609 - Unspecified intestinal obstruction, unspecified as to partial versus complete obstruction Status: Acute Assessment and Plan: Patient tried to have some clear liquids and had an episode of nausea and vomiting, 03/16: CT scan of the abdomen and pelvis: 1. Small bowel obstruction secondary to an umbilical hernia. 2. Multifocal pneumonia. 3. Small pleural effusions. 4. Gallstones. Gallbladder distention may be secondary to fasting and bowel obstruction. NG tube was inserted with approximately 3.5 L of NG drainage overnight and 1 L NG drainage is this morning gernal surgery consulted. for findigns above for obstructive umbilicial hernia. s/p exploratory laparotomy 03/18/2022. general surgery on board. NG tube in place (2) Severe sepsis: Code(s): A41.9 - Sepsis, unspecified organism; R65.20 - Severe sepsis without septic shock Status: Acute Assessment and Plan: Patient presented with weakness, fall, hypotension, elevated lactic acid, acute kidney injury -found to be in severe sepsis, source likely pneumonia -patient was given 30 mL/kg of IV fluids, -normal systolic blood pressures per is between 90-110 mmHg continue maintenance IV fluids -repeat lactic acid has normalized -patient started on vancomycin, Zosyn, Levaquin (03/16) -SARS-CoV-2 negative - influenza A and B is negative, -Urine Legionella and urine strep pneumo antigen obtained and pending (3) Pneumonia: Qualifiers: Laterality: bilateral Lung location: lower lobe of lung Pneumonia type: due to unspecified organism Qualified Code(s): J18.9 - Pneumonia, unspecified organism Code(s): J18.9 - Pneumonia, unspecified organism Status: Acute Assessment and Plan: Chest x-ray reviewed, bilateral infiltrates due to pneumonia -continue supplemental oxygen -continue antibiotics as above -chest x-ray shows Patchy bilateral lung disease at the left lower lung zone with improvement in the right lower lung zone and worsening in the left lower lung zone which could represent pneumonia, atelectasis, pulmonary edema or some combination thereof.. -continue bronchodilators (4) NATALIO (acute kidney injury): Code(s): N17.9 - Acute kidney failure, unspecified Status: Acute Assessment and Plan: Acute kidney injury is likely related to severe sepsis, infection, hypovolemia, decreased p.o. intake -adequately fluid-resuscitated the ER -continue maintenance IV fluids -lactic acidosis -Sanabria in place for accurate I's and O's -continue to monitor renal function, electrolytes and urine output -BUN and creatinine improving (5) Parkinson's disease: Code(s): G20 - Parkinson's disease Status: Acute Assessment and Plan: Patient has a history of Parkinson's disease for the last 25 years as per his -he has a deep brain stimulator -also on clozapine and is followed at [facility] for his Parkinson's disease -Sinemet currently on hold due to small-bowel obstruction (6) DVT prophylaxis: Code(s): Z29.9 - Encounter for prophylactic measures, unspecified Status: Acute Assessment and Plan: SubQ heparin Subjective Date/time seen: 03/19/22 13:40 Interval history: Patient extubated this morning. Reports he is feeling okay. Following commands. Feels thirsty. No cough denies any shortness of breath or chest painR Review of Systems Review of Systems: All systems reviewed & are unremarkable except as noted in HPI and below (HPI) Exam Narrative: General: Patient is lying comfortably in bed, no acute distress HEENT: pupils equal and reactive, sclerae is clear Neck: Supple, no lymphadenopathy Respiratory: coarse breath sounds bilaterally, no resp distress Cardiac: S1-S2 normal, regular rate and rhythm Abdomen: Soft, tender, no bowel sounds, midline incision with dressing,
[2022-03-19 17:47] LABS: Glucose Point of Care 121 mg/dl (65-105)
[2022-03-20] VITALS (24 sets, daily range): BP systolic 117–149; BP diastolic 66–75; PULSE 87–99; RESP 16–24; TEMP 36.8–37.7; O2SAT 92–96; BMI 26.6
[2022-03-20] MEDS: LACTATED RINGERS 1,000 ML 75 ML IV CONT (00:09)
[2022-03-20] MEDS: IPRATROPIUM BR 0.02% INH SOLN 0.5 MG/2.5 ML VIAL INHALATION ×4 (01:58→20:13)
[2022-03-20] MEDS: ALBUTEROL SULFATE NEB 2.5 MG/3 ML INH 5 MG INHALATION ×3 (01:58→20:13)
[2022-03-20 06:27] LABS: Alanine Aminotransferase 11 U/L (6-50); Albumin Level 3.1 g/dL (3.5-5.1); Alkaline Phosphatase 89 U/L (38-126); Anion Gap 8 mmol/L (8-16); Aspartate Amino Transferase 26 U/L (17-59); Bilirubin,Total 1.3 mg/dL (0.2-1.3); Blood Urea Nitrogen 56 mg/dL (9-20); Calcium 8.1 mg/dL (8.4-10.2); Carbon Dioxide 25 mmol/L (22-30); Chloride 118 mmol/L (98-107); Estimated CRCL calculation 36 ml/min; Estimated Glomerular Filt Rate 33; Glucose 126 mg/dL (65-110); Magnesium 2.6 mg/dL (1.6-2.3); Phosphorus 3.1 mg/dL (2.5-4.5); Potassium 3.8 mmol/L (3.4-5.0); Sodium 151 mmol/L (137-145)
[2022-03-20 06:39] LABS: Hemoglobin 13.2 g/dL (14.0-18.0); White Blood Count 9.8 K/mm3 (4.5-10.0)
[2022-03-20 06:40] LABS: Hematocrit 42.3 % (42.0-52.0); Immature Granulocyte Percent A 0.6 % (0-0.5); Mean Corpuscular HGB Conc 31.2 g/dl (32-36); Mean Corpuscular Hemoglobin 30.7 pg (26-34); Mean Corpuscular Volume 98.4 fl (80-100); Mean Platelet Volume 11.8 fl (7.4-10.4); Neutrophils Percent Auto 83.3 % (45.5-73.1); Platelet Count Result 179 k/mm3 (150-375)
[2022-03-20 06:42] LABS: Basophils Percent Auto 0.4 % (0.2-1.2); Eosinophils Percent Auto 0.3 % (0-4.4); Lymphocytes Percent Auto 5.7 % (18.3-44.2); Monocytes Percent Auto 9.7 % (2.6-8.5)
[2022-03-20 06:43] LABS: Immature Granulocyte Absolute 0.06 K/mm3 (0.00-0.031); Lymphocytes Absolute Auto 0.56 K/mm3 (0.9-3.2); Neutrophils Absolute Auto 8.1 K/mm3 (1.3-6.7)
[2022-03-20 08:05] LABS: Glucose Point of Care 117 mg/dl (65-105)
[2022-03-20] MEDS: PANTOPRAZOLE SODIUM IV 40 MG VIAL IV PUSH (08:05)
[2022-03-20] MEDS: HEPARIN SODIUM 5,000 UNITS/ML VIAL 5000 UNITS SUB-Q ×2 (08:05→20:57)
[2022-03-20] MEDS: CARBIDOPA/LEVODOPA 25/100 MG TABLET 3 TABLET PO ×5 (09:10→20:57)
[2022-03-20] MEDS: ACETAMINOPHEN ELIXIR 325 MG/10.15 ML UDC 650 MG FEED TUBE (09:16)
[2022-03-20] MEDS: SODIUM CHLORIDE 0.45% 1,000 ML 75 ML IV CONT (09:16)
--- NOTE | 2022-03-20 09:46 | WPDINTPN ---
Progress Note: A&P Assessment and Plan (1) Acute respiratory failure: Code(s): J96.00 - Acute respiratory failure, unspecified whether with hypoxia or hypercapnia Status: Acute Assessment and Plan: Respiratory failure likely secondary to anesthesia and surgery. Patient was intubated in the OR on 03/18/2022 Extubated 03/19 Saturating well on nasal cannula Incentive spirometry, up in chair (2) Small bowel obstruction: Code(s): K56.609 - Unspecified intestinal obstruction, unspecified as to partial versus complete obstruction Status: Acute Assessment and Plan: Patient tried to have some clear liquids and had an episode of nausea and vomiting, 03/16: CT scan of the abdomen and pelvis: 1. Small bowel obstruction secondary to an umbilical hernia. 2. Multifocal pneumonia. 3. Small pleural effusions. 4. Gallstones. Gallbladder distention may be secondary to fasting and bowel obstruction. 03/18: status post ex lap, small-bowel resection for ischemic bowel, repair of incarcerated umbilical hernia -surgery following the patient -continue pain control and IV fluids for now -resume Parkinson's beds -swallow evaluation today -will discuss with General surgery regarding starting trickle tube feeds (3) Severe sepsis: Code(s): A41.9 - Sepsis, unspecified organism; R65.20 - Severe sepsis without septic shock Status: Acute Assessment and Plan: Patient presented with weakness, fall, hypotension, elevated lactic acid, acute kidney injury -found to be in severe sepsis, source likely pneumonia, received adequate fluids on admission -continue maintenance IV fluids -normal systolic blood pressures per is between 90-110 mmHg -currently on vancomycin, Zosyn, Levaquin (03/16)-DC vancomycin and Levaquin. Continue Zosyn for now -SARS-CoV-2 negative - influenza A and B is negative, -Urine Legionella and urine strep pneumo antigen: Not detected -blood cultures have been negative (4) Pneumonia: Qualifiers: Laterality: bilateral Lung location: lower lobe of lung Pneumonia type: due to unspecified organism Qualified Code(s): J18.9 - Pneumonia, unspecified organism Code(s): J18.9 - Pneumonia, unspecified organism Status: Acute Assessment and Plan: Chest x-ray reviewed, bilateral infiltrates due to pneumonia -continue supplemental oxygen -continue antibiotics as above -chest x-ray this a.m. shows Airspace opacities in the lower lung zones with interval improvement, consistent with pneumonia -continue bronchodilators (5) NATALIO (acute kidney injury): Code(s): N17.9 - Acute kidney failure, unspecified Status: Acute Assessment and Plan: Acute kidney injury is likely related to severe sepsis, infection, hypovolemia, decreased p.o. intake -adequately fluid-resuscitated the ER -creatinine has improved and normalized -continue maintenance IV fluids but change to half-normal saline due to elevated sodium and chloride -Sanabria for accurate I's and O's -continue to monitor renal function, electrolytes and urine output -urine output has been good (6) Parkinson's disease: Code(s): G20 - Parkinson's disease Status: Acute Assessment and Plan: Patient has a history of Parkinson's disease for the last 25 years as per his -he has a deep brain stimulator -also on clozapine and is followed at [facility] for his Parkinson's disease -Sinemet and Mirapex to be resumed (7) DVT prophylaxis: Code(s): Z29.9 - Encounter for prophylactic measures, unspecified Status: Acute Assessment and Plan: SubQ heparin Additional Plan Nutrition: NPO, Stress ulcer prophylaxis: Protonix Incentive spirometry, up in chair Transfer out of ICU today Code status: Full code Subjective Date/time seen: 03/20/22 09:46 Patient was extubated yesterday after successful weaning trial. This morning he continues to be on nasal can
[2022-03-20 10:34] LABS: NT Pro B Type Natriuretic Pept 704 pg/mL (5-100)
--- NOTE | 2022-03-20 10:44 | PM.PNGS ---
Progress Note: A&P Assessment and Plan (1) Obstructed umbilical hernia: Code(s): K42.0 - Umbilical hernia with obstruction, without gangrene Status: Acute Assessment and Plan: doing well, will start trickle feeds thru NG as pt failed swallow study, plan for modified study tomorrow, encourage OOB/IS Subjective Subjective Date/Time Seen: 03/20/22 10:44 doing well, small BM overnight, much more alert today Review of Systems Review of Systems: All systems reviewed & are unremarkable except as noted in HPI and below Exam Const: General: cooperative, comfortable, no acute distress and ill appearing Resp: Auscultation: clear to auscultation bilaterally Cardio: Rate: regular rate Rhythm: regular rhythm GI: Inspection: normal to inspection, distended and incision GI Palp: Yes abdominal tenderness, Yes Soft to palpation, Yes Tenderness to palpation present (GI), No Guarding due to palpation present (GI) and No Rigid due to palpation Objective Data Vital Signs Vital Signs: Vital Signs - 24 hr 03/19/22 11:11 03/19/22 11:00 03/19/22 11:40 Temperature 36.7 C Pulse Rate 87 86 90 Respiratory Rate 12 18 Blood Pressure 120/63 116/64 Pulse Oximetry 97 97 96 Oxygen Delivery Mechanical Ventilation Oxygen Flow Rate Fraction of Inspired Oxygen 45 03/19/22 11:35 03/19/22 11:43 03/19/22 12:00 Temperature Pulse Rate 89 89 89 Respiratory Rate 18 Blood Pressure Pulse Oximetry 95 95 Oxygen Delivery Nasal Cannula Oxygen Flow Rate 5 Fraction of Inspired Oxygen 03/19/22 12:00 03/19/22 13:00 03/19/22 14:00 Temperature Pulse Rate 91 84 86 Respiratory Rate 19 16 17 Blood Pressure 114/57 L 116/61 Pulse Oximetry 95 96 96 Oxygen Delivery Nasal Cannula Oxygen Flow Rate 3 Fraction of Inspired Oxygen 03/19/22 14:08 03/19/22 14:21 03/19/22 14:21 Temperature Pulse Rate 86 89 88 Respiratory Rate 20 22 H 22 H Blood Pressure Pulse Oximetry 96 Oxygen Delivery Nasal Cannula Oxygen Flow Rate 3 Fraction of Inspired Oxygen 03/19/22 14:00 03/19/22 16:00 03/19/22 16:00 Temperature Pulse Rate 91 87 87 Respiratory Rate 20 Blood Pressure Pulse Oximetry 95 Oxygen Delivery Nasal Cannula Oxygen Flow Rate 3 Fraction of Inspired Oxygen 03/19/22 16:00 03/19/22 18:00 03/19/22 18:00 Temperature 36.8 C Pulse Rate 87 84 85 Respiratory Rate 20 24 H Blood Pressure 115/59 L 112/66 Pulse Oximetry 95 92 Oxygen Delivery Oxygen Flow Rate Fraction of Inspired Oxygen 03/19/22 18:40 03/19/22 20:00 03/19/22 20:03 Temperature Pulse Rate 84 85 Respiratory Rate 20 Blood Pressure Pulse Oximetry 89 L 92 Oxygen Delivery Nasal Cannula Oxygen Flow Rate 4 Fraction of Inspired Oxygen 03/19/22 20:00 03/19/22 20:00 03/19/22 20:00 Temperature 36.6 C Pulse Rate 84 87 90 Respiratory Rate 20 20 Blood Pressure 106/71 Pulse Oximetry 94 92 Oxygen Delivery Nasal Cannula Oxygen Flow Rate 3 Fraction of Inspired Oxygen 03/19/22 22:00 03/19/22 22:00 03/20/22 00:00 Temperature Pulse Rate 90 90 88 Respiratory Rate 20 Blood Pressure 128/64 Pulse Oximetry 92 Oxygen Delivery Oxygen Flow Rate Fraction of Inspired Oxygen 03/20/22 00:00 03/20/22 00:00 03/20/22 01:59 Temperature 37.3 C Pulse Rate 88 88 89 Respiratory Rate 20 18 20 Blood Pressure 131/66 Pulse Oximetry 92 92 Oxygen Delivery Nasal Cannula Oxygen Flow Rate 3 Fraction of Inspired Oxygen 03/20/22 02:08 03/20/22 02:00 03/20/22 02:00 Temperature Pulse Rate 87 87 88 Respiratory Rate 22 H 20 Blood Pressure 117/68 Pulse Oximetry 92 Oxygen Delivery Oxygen Flow Rate Fraction of Inspired Oxygen 03/20/22 04:00 03/20/22 04:00 03/20/22 04:00 Temperature 37.4 C Pulse Rate 87 88 89 Respiratory Rate 18 18 Blood Pressure 135/69 Pulse Oximetry 93 93 Oxygen Delivery Nasal Cannula Ox
[2022-03-20 12:16] LABS: Glucose Point of Care 115 mg/dl (65-105)
--- NOTE | 2022-03-20 12:20 | PCSTNOTE ---
Please refer to the Bedside Swallow Evaluation in the EMR. Please note, silent aspiration cannot be ruled out at bedside.
--- NOTE | 2022-03-20 13:04 | PC.NURSE ---
This patient, Maximiliano Brown, was transferred to [[id number]] on 03/20/22 at 1304. Personal belongings sent with patient. Report given to [BETH COFFEY]. Appropriate documentation sent with patient.
--- NOTE | 2022-03-20 13:47 | PM.IMPN ---
Progress Note: A&P Assessment and Plan (1) Small bowel obstruction: Code(s): K56.609 - Unspecified intestinal obstruction, unspecified as to partial versus complete obstruction Status: Acute Assessment and Plan: Patient tried to have some clear liquids and had an episode of nausea and vomiting, performed CT scan on 03/16: CT scan of the abdomen and pelvis: 1. Small bowel obstruction secondary to an umbilical hernia. 2. Multifocal pneumonia. 3. Small pleural effusions. 4. Gallstones. Gallbladder distention may be secondary to fasting and bowel obstruction. NG tube was inserted with approximately 3.5 L of NG drainage overnight and 1 L NG drainage is this morning gernal surgery consulted. for findigns above for obstructive umbilicial hernia. s/p exploratory laparotomy 03/18/2022. general surgery on board. NG tube in place Swallow evaluation failed. MBS planned tomorrow Tube feeds started per General surgery today (2) Severe sepsis: Code(s): A41.9 - Sepsis, unspecified organism; R65.20 - Severe sepsis without septic shock Status: Acute Assessment and Plan: Patient presented with weakness, fall, hypotension, elevated lactic acid, acute kidney injury -found to be in severe sepsis, source likely pneumonia -patient was given 30 mL/kg of IV fluids, -normal systolic blood pressures per is between 90-110 mmHg continue maintenance IV fluids -repeat lactic acid has normalized -patient started on vancomycin, Zosyn, Levaquin (03/16) -SARS-CoV-2 negative - influenza A and B is negative, -Urine Legionella and urine strep pneumo antigen obtained and pending (3) Pneumonia: Qualifiers: Laterality: bilateral Lung location: lower lobe of lung Pneumonia type: due to unspecified organism Qualified Code(s): J18.9 - Pneumonia, unspecified organism Code(s): J18.9 - Pneumonia, unspecified organism Status: Acute Assessment and Plan: Chest x-ray reviewed, bilateral infiltrates due to pneumonia -continue supplemental oxygen -continue antibiotics as above -chest x-ray shows Patchy bilateral lung disease at the left lower lung zone with improvement in the right lower lung zone and worsening in the left lower lung zone which could represent pneumonia, atelectasis, pulmonary edema or some combination thereof.. -continue bronchodilators (4) NATALIO (acute kidney injury): Code(s): N17.9 - Acute kidney failure, unspecified Status: Acute Assessment and Plan: Acute kidney injury is likely related to severe sepsis, infection, hypovolemia, decreased p.o. intake -adequately fluid-resuscitated the ER -continue maintenance IV fluids -lactic acidosis -San[place]ria in place for accurate I's and O's -continue to monitor renal function, electrolytes and urine output -BUN and creatinine improving (5) Parkinson's disease: Code(s): G20 - Parkinson's disease Status: Acute Assessment and Plan: Patient has a history of Parkinson's disease for the last 25 years as per his -he has a deep brain stimulator -also on clozapine and is followed at [facility] for his Parkinson's disease -Sinemet currently on hold due to small-bowel obstruction (6) DVT prophylaxis: Code(s): Z29.9 - Encounter for prophylactic measures, unspecified Status: Acute Assessment and Plan: SubQ heparin (7) Hypernatremia: Code(s): E87.0 - Hyperosmolality and hypernatremia Status: Acute Assessment and Plan: worsened 03/20/2022. IV fluid adjusted (8) Dysphagia: Code(s): R13.10 - Dysphagia, unspecified Status: Acute Assessment and Plan: as reviewed above. bedside swallow evaluation failed Plan for MBS in the morning Tube feeds to continue as ordered Subjective Date/time seen: 03/20/22 13:47 Interval history: No overnight events. Weak voice with cough present. Working with speech therapy this morning. Oxygen requir
[2022-03-20] MEDS: ALBUTEROL SULFATE NEB 2.5 MG/0.5 ML INH 5 MG (14:52)
[2022-03-20 18:23] LABS: Glucose Point of Care 124 mg/dl (65-105)
[2022-03-21] VITALS (28 sets, daily range): BP systolic 86–129; BP diastolic 42–76; PULSE 93–141; RESP 18–46; TEMP 37.6–38.3; O2SAT 92–97
[2022-03-21] MEDS: SODIUM CHLORIDE 0.45% 1,000 ML 75 ML IV CONT ×2 (00:52→16:16)
[2022-03-21 01:10] LABS: Glucose Point of Care 108 mg/dl (65-105)
[2022-03-21] MEDS: ALBUTEROL SULFATE NEB 2.5 MG/3 ML INH 5 MG INHALATION ×4 (02:42→21:40)
[2022-03-21] MEDS: IPRATROPIUM BR 0.02% INH SOLN 0.5 MG/2.5 ML VIAL INHALATION ×4 (02:42→21:40)
[2022-03-21] MEDS: CARBIDOPA/LEVODOPA 25/100 MG TABLET 3 TABLET PO ×6 (05:32→21:21)
[2022-03-21] MEDS: PRAMIPEXOLE 1 MG TABLET PO ×2 (05:33→11:43)
[2022-03-21] MEDS: ACETAMINOPHEN ELIXIR 325 MG/10.15 ML UDC 650 MG FEED TUBE ×2 (05:36→14:37)
[2022-03-21 05:52] LABS: Glucose Point of Care 136 mg/dl (65-105)
[2022-03-21 06:15] LABS: Basophils Percent Auto 0.3 % (0.2-1.2); Eosinophils Percent Auto 0.3 % (0-4.4); Hematocrit 43.4 % (42.0-52.0); Hemoglobin 13.4 g/dL (14.0-18.0); Immature Granulocyte Absolute 0.08 K/mm3 (0.00-0.031); Immature Granulocyte Percent A 0.9 % (0-0.5); Lymphocytes Absolute Auto 0.56 K/mm3 (0.9-3.2); Lymphocytes Percent Auto 6.5 % (18.3-44.2); Mean Corpuscular HGB Conc 30.9 g/dl (32-36); Mean Corpuscular Hemoglobin 30.5 pg (26-34); Mean Corpuscular Volume 98.6 fl (80-100); Mean Platelet Volume 11.7 fl (7.4-10.4); Monocytes Absolute Auto 0.9 K/mm3 (0.1-0.6); Monocytes Percent Auto 10.5 % (2.6-8.5); Neutrophils Percent Auto 81.5 % (45.5-73.1); Platelet Count Result 209 k/mm3 (150-375); Red Cell Distribution Width 14.2 % (11.5-14.5); White Blood Count 8.6 K/mm3 (4.5-10.0)
[2022-03-21 06:22] LABS: Alanine Aminotransferase 9 U/L (6-50); Albumin Level 3.1 g/dL (3.5-5.1); Alkaline Phosphatase 97 U/L (38-126); Anion Gap 8 mmol/L (8-16); Aspartate Amino Transferase 34 U/L (17-59); Bilirubin,Total 1.9 mg/dL (0.2-1.3); Blood Urea Nitrogen 53 mg/dL (9-20); Calcium 8.2 mg/dL (8.4-10.2); Carbon Dioxide 25 mmol/L (22-30); Chloride 124 mmol/L (98-107); Estimated CRCL calculation 36 ml/min; Estimated Glomerular Filt Rate 33; Glucose 129 mg/dL (65-110); Magnesium 2.5 mg/dL (1.6-2.3); Phosphorus 3.1 mg/dL (2.5-4.5); Potassium 3.7 mmol/L (3.4-5.0); Sodium 157 mmol/L (137-145)
--- NOTE | 2022-03-21 07:52 | PCOTNOTE ---
Per RN, patient has fever and increased respirations this AM and recommended to hold therapy this AM. Will continue OT plan of care.
[2022-03-21] MEDS: atenoloL 12.5 MG TABLET PO (09:08)
[2022-03-21] MEDS: PANTOPRAZOLE SODIUM IV 40 MG VIAL IV PUSH (09:08)
[2022-03-21] MEDS: HEPARIN SODIUM 5,000 UNITS/ML VIAL 5000 UNITS SUB-Q ×2 (09:08→21:22)
--- NOTE | 2022-03-21 09:21 | PM.IMPN ---
Progress Note: A&P Assessment and Plan (1) Acute respiratory failure with hypoxia: Code(s): J96.01 - Acute respiratory failure with hypoxia Status: Acute Assessment and Plan: Likely due to aspiration pneumonia with severe sepsis requiring ICU admission. Extubated 03/19 and has been on 2-3L NC since extubation and is now in IMU. Having some tachypnea while persistently febrile, which is likely due to infection but cannot rule out PE. From a respiratory standpoint appears stable with no increasing oxygen requirements. -Will get ABG -V/Q scan to rule out PE -Continue pneumonia treatment -Wean oxygen as tolerated -Chest physiotherapy to be q4h by RT (2) Fever: Code(s): R50.9 - Fever, unspecified Status: Acute Assessment and Plan: New onset - has not been febrile during hospitalization. No leukocytosis and wbc largely unchanged for the past 3 days. Bandemia present today and yesterday. May be due to atelectasis as patient cannot properly use the incentive spirometer and had small bowel resection and hernia repair on 03/18. 03/16 BCX remain negative. 03/16 influenza, COVID19, urine pneumococcal and legionella negative. CXR from today shows mild improvement. -Tylenol PRN fever -Gave one time dose of ibuprofen w/ calculated creatinine clearance of 39 -BCX -UA & UCX -Repeat COVID19 and influenza -Added vancomycin - pharmacy to dose (3) Aspiration pneumonia: Code(s): J69.0 - Pneumonitis due to inhalation of food and vomit Status: Acute Assessment and Plan: Failed bedside swallow study and will need modified barium swallow by PROTOTYPE FABRICATOR. Currently tolerating tube feeds. Initially treated with zosyn, levofloxacin and vancomycin. Antibiotics de-escalated to zosyn, but given persistent fever will add vancomycin and continue zosyn for now. (4) Severe sepsis: Code(s): A41.9 - Sepsis, unspecified organism; R65.20 - Severe sepsis without septic shock Status: Acute Assessment and Plan: Now with fever, tachycardia and known source of pneumonia. Currently hemodynamically stable and will proceed with workup and treatment as noted above. (5) NATALIO (acute kidney injury): Code(s): N17.9 - Acute kidney failure, unspecified Status: Acute Assessment and Plan: Likely due to severe sepsis and appears to be improve but with persistent hypernatremia, will consult Nephrology. -Appreciate recommendations from Nephrology -Renally dose all medications -Avoid nephrotoxic agents (6) Small bowel obstruction: Code(s): K56.609 - Unspecified intestinal obstruction, unspecified as to partial versus complete obstruction Status: Acute Assessment and Plan: S/P small bowel resection and umbilical hernia repair on 03/18/22. Had a bowel movement yesterday and is tolerating tube feeds. Needs modified barium swallow. -Appreciate recommendations from General Surgery -Continue tube feeds (7) Hypernatremia: Code(s): E87.0 - Hyperosmolality and hypernatremia Status: Acute Assessment and Plan: Likely due to poor oral hydration. Nephrology consulted. Appreciate recommendations. (8) Dysphagia: Code(s): R13.10 - Dysphagia, unspecified Status: Acute Assessment and Plan: Needs modified barium swallow. Continue tube feeds for now. (9) Diet-controlled diabetes mellitus: Code(s): E11.9 - Type 2 diabetes mellitus without complications Status: Acute Assessment and Plan: Controlled. Continue POC glucose. Will monitor. (10) Parkinson's disease dementia: Code(s): G20 - Parkinson's disease; F02.80 - Dementia in other diseases classified elsewhere without behavioral disturbance Status: Acute Assessment and Plan: Continue carbidopa-levodopa and pramipexole. Holding clozapine for now and has been held since admission. No overt symptoms of clozapine withdrawal at this ti
--- NOTE | 2022-03-21 09:51 | PM.PNGS ---
Progress Note: A&P Assessment and Plan (1) Obstructed umbilical hernia: Code(s): K42.0 - Umbilical hernia with obstruction, without gangrene Status: Acute Assessment and Plan: doing well from postop standpoint, fever and tachycardia this am, will get CXR and cultures, cont trickle feeds for now Subjective Subjective Date/Time Seen: 03/21/22 09:51 less alert this am, no c/o, lupis trickle feeds Review of Systems Review of Systems: ROS unobtainable: Yes unobtainable due to medical condition and unobtainable due to mental status Exam Const: Orientation/consciousness: oriented to person, confusion and lethargic Resp: Auscultation: diminished lung sounds Cardio: Rate: tachycardic Rhythm: regular rhythm GI: Other: soft, sl dist, gabriella TTP, incision C/D/I Objective Data Vital Signs Vital Signs: Vital Signs - 24 hr 03/20/22 10:00 03/20/22 10:00 03/20/22 12:00 Temperature Pulse Rate 94 94 89 Respiratory Rate 16 Blood Pressure 139/75 Pulse Oximetry 96 Oxygen Delivery Oxygen Flow Rate 03/20/22 12:47 03/20/22 10:16 03/20/22 13:25 Temperature 37.2 C 37.2 C Pulse Rate 89 Respiratory Rate 18 Blood Pressure 136/69 Pulse Oximetry 95 Oxygen Delivery Nasal Cannula Oxygen Flow Rate 3 03/20/22 13:34 03/20/22 13:32 03/20/22 14:00 Temperature 36.8 C Pulse Rate 88 Respiratory Rate 24 H Blood Pressure 141/73 H Pulse Oximetry 94 95 Oxygen Delivery Nasal Cannula Nasal Cannula Oxygen Flow Rate 3 3 03/20/22 14:50 03/20/22 14:57 03/20/22 16:00 Temperature Pulse Rate 92 94 99 Respiratory Rate 20 20 Blood Pressure Pulse Oximetry Oxygen Delivery Oxygen Flow Rate 03/20/22 20:15 03/20/22 20:15 03/20/22 22:00 Temperature 37.6 C Pulse Rate 94 96 Respiratory Rate 20 18 Blood Pressure 127/72 Pulse Oximetry 94 93 Oxygen Delivery Nasal Cannula Oxygen Flow Rate 3 03/20/22 20:00 03/20/22 20:36 03/20/22 20:55 Temperature Pulse Rate 98 Respiratory Rate 20 Blood Pressure Pulse Oximetry 94 94 Oxygen Delivery Nasal Cannula Nasal Cannula Oxygen Flow Rate 3 2 05/25/22 02:43 03/20/22 20:00 03/21/22 00:00 Temperature Pulse Rate 101 H 93 94 Respiratory Rate 28 H Blood Pressure Pulse Oximetry Oxygen Delivery Oxygen Flow Rate 03/21/22 04:00 03/21/22 05:36 03/21/22 03:05 Temperature 38.1 C H Pulse Rate 102 H 107 H Respiratory Rate 28 H Blood Pressure Pulse Oximetry Oxygen Delivery Oxygen Flow Rate 03/21/22 05:54 03/21/22 08:45 03/21/22 08:47 Temperature 38.1 C H Pulse Rate 102 H 99 Respiratory Rate 20 26 H Blood Pressure 129/73 Pulse Oximetry 97 95 Oxygen Delivery Nasal Cannula Oxygen Flow Rate 2 03/21/22 08:53 03/21/22 09:08 Temperature Pulse Rate 98 106 H Respiratory Rate 26 H Blood Pressure Pulse Oximetry Oxygen Delivery Oxygen Flow Rate Intake/Output Intake/Output: Intake & Output 03/18/22 03/19/22 03/20/22 03/21/22 23:59 23:59 23:59 23:59 Intake Total 2588.4 2800 350 1100 Output Total 4130 2350 2350 1350 Balance -1541.6 450 -2000 -250 Meds/Results Medications: Active Medications Generic Name Dose Route Start Last Admin Trade Name Leonardoq PRN Reason Stop Dose Admin Acetaminophen 650 mg 03/20/22 09:01 03/21/22 05:36 Acetaminophen Elixir 325 Mg/10.15 Ml Udc FEED TUBE 650 mg Q4H PRN Administration Mild Pain (1-3) or Fever Albuterol 5 mg 03/16/22 14:00 03/21/22 08:45 Albuterol Sulfate Neb 2.5 Mg/3 Ml Inh INHALATION 5 mg Q6HRT EVELINE Administration Atenolol 12.5 mg 03/21/22 09:00 03/21/22 09:08 Atenolol 12.5 Mg Tablet PO 12.5 mg DAILY EVELINE Administration Carbidopa/Levodopa 3 tablet 03/16/22 18:00 03/21/22 09:08 Carbidopa/Levodopa 25/100 Mg Tablet PO 3 tablet 0600,0900,1200,1500,1800,2100 EVELINE Administration Dextrose 12.5 gm 03/16/22 13:45 Dextrose 50% 25 Gm
[2022-03-21 11:36] LABS: Glucose Point of Care 107 mg/dl (65-105)
--- NOTE | 2022-03-21 14:16 | PCPTNOTE ---
Per RN: patient has a fever and has not been feeling well this date and recommended not to see patient for therapy this afternoon.
--- NOTE | 2022-03-21 14:20 | PM.CNNEP ---
Assessment and Plan Assessment and plan (1) Acute kidney injury: Code(s): N17.9 - Acute kidney failure, unspecified Status: Acute Assessment and Plan: multifactorial etiology: relative hypotension/hemodynamic instability sepsis/infection (pneumonia) prerenal factors concurrent use of HCTZ (BONE [employer] PULLER) insensible losses (fevers and gastric output) creatinine relatively stable aside from sodium, no critical electrolyres making urine renal ultrasound results noted continue IVFs for now follow trend of repeat labs and UOP (2) Hypernatremia: Code(s): E87.0 - Hyperosmolality and hypernatremia Status: Acute Assessment and Plan: due to severe free water deficit continue 1/2NS IVFs for now may need to swich to D5W IVFs once able to take enteral feeds, would start and titrate free water flushes alternatively, may need TPN and will need to add free water to this follow trend of sodium levels (3) Small bowel obstruction: Code(s): K56.609 - Unspecified intestinal obstruction, unspecified as to partial versus complete obstruction Status: Acute Assessment and Plan: due to incarcerated umbical hernia s/p exploratory laparotomy, small-bowel resection, and repair of incarcerated umbilical hernia Surgery following (4) Pneumonia: Qualifiers: Laterality: bilateral Lung location: lower lobe of lung Pneumonia type: due to unspecified organism Qualified Code(s): J18.9 - Pneumonia, unspecified organism Code(s): J18.9 - Pneumonia, unspecified organism Status: Acute Assessment and Plan: as noted by recent imaging possibly complicated by aspiration follow culture data on antibiotics (5) Parkinson's disease: Code(s): G20 - Parkinson's disease Status: Chronic Assessment and Plan: back on home medications Long and extensive discussion (> 20 minutes) with patient's family at bedside regarding the above issues and current plan of care/action. Will continue to follow. History of Present Illness Reason for Consult Consult date: 03/21/22 Reason for consult: acute renal failure and hypernatremia Chief Complaint Chief complaint: Pneumonia, Sepsis, Acute Hypoxic Resp Failure History of Present Illness Narrative: Most of the information I have obtained is from review of the electronic medical record, discussion with the physician/ nurses involved in his care, and sketchy with his at bedside as the patient is unable to provide me with much history leading to his presentation and current hospitalization due to his current medical issues /problems. The patient is a 72-year-old male with a past medical history as outlined below who presented to [facility] Emergency room approximately five days ago for further evaluation of generalized weakness. The patient's reports that a few days prior to admission he had been having some issues with his stomach being upset furthermore, his appetite had been poor and he be progressively get more more weak and more lethargic than his usual baseline. Apparently, the night before admission, he had several episodes of nausea/vomiting. The morning of admission, he apparently was so weak that he had a ground level fall with no injury. His called EMS who transfer the patient to the emergency room for further evaluation. Workup and evaluation emergency room found the patient to be hypotensive (more so than his baseline 90 - 100 systolic as he was in the 70s systolic), mildly tachypneic, tachycardic, afebrile, with oxygen saturations of 88% on room air. Routine blood test demonstrated a normal white blood cell count but with a left shift, elevated BUN and creatinine /acute kidney injury, elevated lactic acid, elevated CRP, and a CT of the brain that demonstrated no acute intracranial pathology but his chest x-ray was compatible with pneumonia. He was given IV fluid
[2022-03-21 15:50] LABS: Appearance Urine Cloudy (Clear); Bilirubin Urine 1+ (Negative); Blood Urine 3+ (Negative); Color Urine Yellow (Yellow); Glucose Urine UA Negative (Negative); Ketones Urine Negative (Negative); Leukocyte Esterase Ur Trace LEU/UL (Negative); Nitrate Urine Negative (Negative); Protein Urine 2+ mg/dL (Negative); Urobilinogen Urine 0.2 mg/dL (<2.0); pH Urine 5.5 (5.0-9.0)
[2022-03-21 15:56] LABS: Add Urine Microscopic? YES; Amorphous Sediment Urine Few; RBC Urine >75 /hpf (0-2); Squamous Epithelial Cell Urine Few /hpf (Few); WBC Urine 0-3 /hpf
[2022-03-21] MEDS: IBUPROFEN SUSPENSION 200 MG/10 ML UDC FEED TUBE (16:16)
[2022-03-21 17:32] LABS: Glucose Point of Care 123 mg/dl (65-105)
[2022-03-21 17:45] LABS: Alveolar/Arterial O2 Gradient 123.8 mmHg; Base Excess ABG 2.5 mEq/l (+/-2.0); Fractional Inspired Oxygen 32 %; HCO3 ABG 25.1 mEq/l (22.0-26.0); Oxygen Content ABG 19.2 %vol (16.0-22.0); Oxygen Saturation ABG 94.6 % (95.0-100.0); Oxyhemoglobin 92.8 % THb (90.0-100.0); PCO2 ABG 33.2 mmHg (35.0-45.0); PO2 ABG 65.5 mmHg (80.0-100.0); PO2 FiO2 Ratio Arterial Blood 2.05 %; Total Hemoglobin 14.7 g/dL (12.0-18.0); pH ABG 7.497 (7.350-7.450)
[2022-03-21 17:46] LABS: Modified Allen's Test Pass; Site Drawn LEFT RADIAL
[2022-03-21 17:47] LABS: Device NASAL CANNULA
[2022-03-21 18:51] LABS: Influenza A QL RT-PCR Negative (Negative); Influenza B QL RT-PCR Negative (Negative)
[2022-03-21 18:56] LABS: Albumin Level 3.1 g/dL (3.5-5.1); Anion Gap 10 mmol/L (8-16); Blood Urea Nitrogen 55 mg/dL (9-20); Calcium 8.4 mg/dL (8.4-10.2); Carbon Dioxide 23 mmol/L (22-30); Chloride 125 mmol/L (98-107); Estimated CRCL calculation 35 ml/min; Estimated Glomerular Filt Rate 31; Glucose 124 mg/dL (65-110); Phosphorus 3.4 mg/dL (2.5-4.5); Potassium 3.7 mmol/L (3.4-5.0); Sodium 158 mmol/L (137-145)
[2022-03-21 19:10] LABS: SARS-CoV-2 RNA PCR Negative
--- NOTE | 2022-03-21 19:34 | PC.NURSE ---
193: Ssrs Developer called Dr. Booth with renal function panel results
--- NOTE | 2022-03-21 19:46 | ECG_ITS ---
Measurements Intervals Latimer Rate: 105 P: 32 AK: 120 QRS: 81 QRSD: 102 T: -40 QT: 332 QTc: 439 Interpretive Statements SINUS TACHYCARDIA MINIMAL Q WAVES- INFERIOR LEADS BORDERLINE ST-T WAVE ABNORMALITY- ANTEROLAT/INF LEADS BASELINE ARTIFACT- I, II, III, AVR, AVL, AVF, V1, V3-V6 ABNORMAL ECG Electronically Signed On 03-22-2022 6:32:29 CDT by Emiliano Joya D.O.
--- NOTE | 2022-03-21 20:36 | PM.IMPN ---
Subjective Date/time seen: 03/21/22 20:36 Objective Data Vital Signs Vital Signs: Vital Signs - 24 hr 03/20/22 22:00 03/20/22 20:55 03/21/22 02:43 Temperature 99.6 F Pulse Rate 96 101 H Respiratory Rate 18 28 H Blood Pressure 127/72 Pulse Oximetry 93 94 Oxygen Delivery Nasal Cannula Oxygen Flow Rate 2 03/21/22 00:00 03/21/22 04:00 03/21/22 05:36 Temperature 100.5 F H Pulse Rate 94 102 H Respiratory Rate Blood Pressure Pulse Oximetry Oxygen Delivery Oxygen Flow Rate 03/21/22 03:05 03/21/22 05:54 03/21/22 08:45 Temperature 100.5 F H Pulse Rate 107 H 102 H 99 Respiratory Rate 28 H 20 26 H Blood Pressure 129/73 Pulse Oximetry 97 Oxygen Delivery Oxygen Flow Rate 03/21/22 08:47 03/21/22 08:53 03/21/22 09:08 Temperature Pulse Rate 98 106 H Respiratory Rate 26 H Blood Pressure Pulse Oximetry 95 Oxygen Delivery Nasal Cannula Oxygen Flow Rate 2 03/21/22 09:10 03/21/22 09:10 03/21/22 13:21 Temperature Pulse Rate 101 H 102 H Respiratory Rate 26 H Blood Pressure Pulse Oximetry 94 Oxygen Delivery Nasal Cannula Oxygen Flow Rate 3 03/21/22 13:30 03/21/22 12:00 03/21/22 14:37 Temperature 101 F H Pulse Rate 100 97 Respiratory Rate 26 H Blood Pressure Pulse Oximetry Oxygen Delivery Oxygen Flow Rate 03/21/22 14:00 03/21/22 16:16 03/21/22 15:37 Temperature 101.0 F H 100.1 F H 100.1 F H Pulse Rate 101 H Respiratory Rate 22 H Blood Pressure 116/76 Pulse Oximetry 92 Oxygen Delivery Oxygen Flow Rate 03/21/22 17:16 03/21/22 16:00 Temperature 100.0 F H Pulse Rate 98 Respiratory Rate Blood Pressure Pulse Oximetry Oxygen Delivery Oxygen Flow Rate Intake/Output Intake/Output: Intake & Output 03/18/22 03/19/22 03/20/22 03/21/22 23:59 23:59 23:59 23:59 Intake Total 2588.4 2800 350 2150 Output Total 4130 2350 2350 2475 Balance -1541.6 450 -2000 -325 Meds/Results Medications: Active Medications Generic Name Dose Route Start Last Admin Trade Name Freq PRN Reason Stop Dose Admin Acetaminophen 650 mg 03/20/22 09:01 03/21/22 14:37 Acetaminophen Elixir 325 Mg/10.15 Ml Udc FEED TUBE 650 mg Q4H PRN Administration Mild Pain (1-3) or Fever Albuterol 5 mg 03/16/22 14:00 03/21/22 13:21 Albuterol Sulfate Neb 2.5 Mg/3 Ml Inh INHALATION 5 mg Q6HRT EVELINE Administration Albuterol 2.5 mg 03/21/22 20:32 Albuterol Sulfate Neb 2.5 Mg/3 Ml Inh INHALATION Q4HRT PRN Shortness Of Breath Atenolol 12.5 mg 03/21/22 09:00 03/21/22 09:08 Atenolol 12.5 Mg Tablet PO 12.5 mg DAILY EVELINE Administration Carbidopa/Levodopa 3 tablet 03/16/22 18:00 03/21/22 17:29 Carbidopa/Levodopa 25/100 Mg Tablet PO 3 tablet 0600,0900,1200,1500,1800,2100 EVELINE Administration Dextrose 12.5 gm 03/16/22 13:45 Dextrose 50% 25 Gm/50 Ml Syringe IV PUSH PRN PRN Hypoglycemia Protocol Glucagon 1 mg 03/16/22 13:45 Glucagon For Inj 1 Mg Vial IM PRN PRN Hypoglycemia Protocol Glucose 15 gm 03/16/22 13:45 Glucose Oral Gel 15 Gm Of Glucse In 37.5 Gm Tube PO PRN PRN Hypoglycemia Protocol Heparin Sodium (Porcine) 5,000 units 03/16/22 21:00 03/21/22 09:08 Heparin Sodium 5,000 Units/Ml Vial SUB-Q 5,000 units Q12HR EVELINE Administration Piperacillin Sod/Tazobactam Sod 2.25 gm in 50 mls @ 100 mls/hr 03/16/22 12:10 03/21/22 17:29 Zosyn 2.25 Gm/D5w 50 Ml IVPB 100 mls/hr Q6HR EVELINE Administration Dextrose 1,000 mls @ 100 mls/hr 03/16/22 13:45 Dextrose 5% 1,000 Ml IVPB PRN PRN Hypoglycemia Protocol Sodium Chloride 1,000 mls @ 75 mls/hr 03/20/22 08:55 03/21/22 20:18 Sodium Chloride 0.45% IV CONT 999 mls/hr .[id number] EVELINE Infusion Vancomycin HCl 1,500 mg in 500 mls @ 333.333 mls/hr 03/21/22 18:00 03/21/22 17:57 Vancomycin 1,500 Mg/D5w 500 Ml IVPB 33
--- NOTE | 2022-03-21 20:47 | PC.NURSE ---
1934: Porcelain Waxer called Dr Kevin. No response. Will call every 15 minutes
--- NOTE | 2022-03-21 20:48 | PC.NURSE ---
193: Doctor Of Nursing Practice called Alicja CARDONA. No response. Will continue to call every 15 minutes.
--- NOTE | 2022-03-21 20:48 | PC.NURSE ---
1950: Sales And Customer Relations Rep called [facility]
--- NOTE | 2022-03-21 20:53 | PC.NURSE ---
2020: Dr Kevin put orders in for pt. Pt to transfer to U
--- NOTE | 2022-03-21 20:56 | PC.NURSE ---
2048: Called IMU to give report. RN could not take report at this time. Will call again in 15 minutes.
--- NOTE | 2022-03-21 21:35 | PC.NURSE ---
This patient, Maximiliano Brown, was received from [[id number]] on 03/21/22 at 2135 to 231. Patient/family oriented to unit policies and routines
--- NOTE | 2022-03-21 21:59 | PC.NURSE ---
210: Report was given to Kathy
--- NOTE | 2022-03-21 21:59 | PC.NURSE ---
2128: Pt was transferred to the U
[2022-03-21] MEDS: DEXTROSE 5%/0.45% SOD CHL 1,000 ML 85 ML IV CONT (22:14)
[2022-03-21 22:32] LABS: Glucose Point of Care 164 mg/dl (65-105)
[2022-03-22] VITALS (24 sets, daily range): BP systolic 101–135; BP diastolic 48–74; PULSE 85–96; RESP 28–48; TEMP 37.3–38.7; O2SAT 93–98
[2022-03-22 00:58] LABS: Glucose Point of Care 113 mg/dl (65-105)
[2022-03-22] MEDS: ALBUTEROL SULFATE NEB 2.5 MG/3 ML INH 5 MG INHALATION ×4 (02:56→20:25)
[2022-03-22] MEDS: IPRATROPIUM BR 0.02% INH SOLN 0.5 MG/2.5 ML VIAL INHALATION ×4 (02:56→20:25)
--- NOTE | 2022-03-22 03:07 | PM.IMPN ---
Progress Note: A&P Assessment and Plan (1) Acute respiratory failure with hypoxia: Code(s): J96.01 - Acute respiratory failure with hypoxia Status: Acute Assessment and Plan: Patient is on supplemental oxygen by nasal cannula Oxygen saturation noted to be at 96% Patient is tachypneic suspect that this is secondary to metabolic acidosis ABG reviewed Chest x-ray reviewed Breathing treatments p.r.n. (2) Ileus: Code(s): K56.7 - Ileus, unspecified Status: Acute Assessment and Plan: Patient has developed post up ileus NG in place NPO IV fluids Sanabria in place Daily intake and output Supportive care (3) Hypernatremia: Code(s): E87.0 - Hyperosmolality and hypernatremia Status: Acute Assessment and Plan: Patient receiving D5 half-normal saline Cautious normalization of sodium Serial BMP (4) Acute metabolic encephalopathy: Code(s): G93.41 - Metabolic encephalopathy Status: Acute Assessment and Plan: Likely secondary to hypernatremia Supportive care Continue to monitor (5) Parkinson's disease: Code(s): G20 - Parkinson's disease Status: Acute Assessment and Plan: Patient with ileus Unable to continue home meds Supportive care (6) Status post hernia repair: Code(s): Z98.890 - Other specified postprocedural states; Z87.19 - Personal history of other diseases of the digestive system Status: Acute Assessment and Plan: Post op day 3 Follow surgery recommendations Plan Patient was transferred to intermediate care unit Patient is now a do not resuscitate after having a family meeting in with children and Continue supportive care Correct hypernatremia IV fluids Paralytic ileus currently NPO NG in Time Spent With Patient Time: 74+ Subjective Date/time seen: 03/22/22 03:07 Lethargic Review of Systems Review of Systems: Patient is unresponsive Rapid response was called due to patient being tachypneic Patient is status post hernia repair Exam Narrative: Patient is in bed unresponsive Const: General: well developed, ill appearing and lethargic Nutritional Appearance: average body habitus Orientation/consciousness: lethargic Other: Patient is tachypneic HENMT: Head: normal to inspection, normocephalic and atraumatic Face and sinus: normal facial exam Eyes: General: appearance normal, both eyes and all related structures Pupils: Equal, round and reactive pupils present EOM: EOMs intact bilaterally Neck: Neck: full ROM, no lymphadenopathy and no JVD Thyroid: thyroid normal Lymphatic: no lymphadenopathy noted Resp: Effort & Inspection: no grunting, not labored, respiratory distress (Patient breathing fast), no retractions and tachypneic Auscultation: clear to auscultation bilaterally Cardio: Jugular venous distension: no JVD Rate: regular rate Rhythm: regular rhythm Heart sounds: S1 normal heart sound present and S2 normal heart sound present GI: Inspection: distended and other (Infraumbilical surgical wound closed, no dehiscence, well-healed.) GI Palp: Yes Soft to palpation and Yes No hepatosplenomegaly present Percussion: Yes tympanic to percussion Auscultation: Hypoactive bowel sounds present : General: Yes deferred Urinary Catheter: Urinary Catheter: patent and draining Skin: Rashes: no rashes Wounds: wounds noted Neuro: General: other (Lethargic) Cranial nerves: Yes CN's II-XII intact bilaterally and Yes Equal, round and reactive pupils present Cognition (Neuro): normal cognition Speech: normal speech Gait exam (Neuro): Normal gait present Motor exam (neuro): 5/5 motor strength present throughout Extrem: General: normal to inspection, full ROM, no joint enlargement and no pedal edema Objective Data Vital Signs Vital Signs: Vital Signs - 24 hr 03/21/22 04:00 03/21/22 05:36 03/21/22 05:54 Temperature 100.5 F H 100.5 F H Pulse Rate 102 H 102 H Respirator
[2022-03-22 05:12] LABS: Basophils Percent Auto 0.3 % (0.2-1.2); Eosinophils Absolute Auto 0.1 K/mm3 (0-0.3); Eosinophils Percent Auto 0.9 % (0-4.4); Hematocrit 42.1 % (42.0-52.0); Lymphocytes Absolute Auto 0.87 K/mm3 (0.9-3.2); Lymphocytes Percent Auto 8.8 % (18.3-44.2); Mean Corpuscular HGB Conc 30.9 g/dl (32-36); Mean Corpuscular Hemoglobin 30.5 pg (26-34); Mean Corpuscular Volume 98.8 fl (80-100); Mean Platelet Volume 11.9 fl (7.4-10.4); Monocytes Absolute Auto 0.9 K/mm3 (0.1-0.6); Monocytes Percent Auto 8.8 % (2.6-8.5); Neutrophils Percent Auto 80.2 % (45.5-73.1); Platelet Count Result 196 k/mm3 (150-375); Red Blood Count 4.26 M/mm3 (4.6-6.20); Red Cell Distribution Width 14.6 % (11.5-14.5); White Blood Count 9.9 K/mm3 (4.5-10.0)
[2022-03-22 05:26] LABS: Alanine Aminotransferase 9 U/L (6-50); Albumin Level 2.9 g/dL (3.5-5.1); Alkaline Phosphatase 88 U/L (38-126); Anion Gap 9 mmol/L (8-16); Aspartate Amino Transferase 49 U/L (17-59); Bilirubin,Total 0.9 mg/dL (0.2-1.3); Blood Urea Nitrogen 58 mg/dL (9-20); Calcium 8.3 mg/dL (8.4-10.2); Carbon Dioxide 23 mmol/L (22-30); Chloride 124 mmol/L (98-107); Estimated CRCL calculation 33 ml/min; Estimated Glomerular Filt Rate 30; Glucose 134 mg/dL (65-110); Magnesium 2.5 mg/dL (1.6-2.3); Phosphorus 3.6 mg/dL (2.5-4.5); Potassium 3.9 mmol/L (3.4-5.0); Sodium 156 mmol/L (137-145)
[2022-03-22] MEDS: CARBIDOPA/LEVODOPA 25/100 MG TABLET 3 TABLET PO ×2 (09:16→12:08)
[2022-03-22] MEDS: PANTOPRAZOLE SODIUM IV 40 MG VIAL IV PUSH (09:16)
[2022-03-22] MEDS: HEPARIN SODIUM 5,000 UNITS/ML VIAL 5000 UNITS SUB-Q ×2 (09:16→21:43)
[2022-03-22] MEDS: DEXTROSE 5%/0.45% SOD CHL 1,000 ML 85 ML IV CONT (11:07)
--- NOTE | 2022-03-22 12:06 | PCPTNOTE ---
Attempted physical therapy treatment, per RN hold patient for today due to unstable vitals (increase HR and low BP per RN). Will follow
[2022-03-22] MEDS: PRAMIPEXOLE 1 MG TABLET PO (12:08)
[2022-03-22 12:41] LABS: Glucose Point of Care 140 mg/dl (65-105)
--- NOTE | 2022-03-22 13:01 | PM.PNGS ---
Progress Note: A&P Assessment and Plan (1) Status post hernia repair: Code(s): Z98.890 - Other specified postprocedural states; Z87.19 - Personal history of other diseases of the digestive system Status: Acute Assessment and Plan: stable, exam benign, now c ileus, cont NG decompression for now, may need TPN if does not resolve soon Subjective Subjective Date/Time Seen: 03/22/22 13:01 events noted, looks much improved today, more alert, no c/o Review of Systems Review of Systems: All systems reviewed & are unremarkable except as noted in HPI and below Exam Const: General: comfortable, no acute distress and ill appearing Resp: Auscultation: diminished lung sounds Cardio: Rate: regular rate Rhythm: regular rhythm GI: Other: soft, sl dist, gabriella TTP, incision C/D/I Objective Data Vital Signs Vital Signs: Vital Signs - 24 hr 03/21/22 13:21 03/21/22 13:30 03/21/22 14:37 Temperature 38.3 C H Pulse Rate 102 H 100 Respiratory Rate 26 H 26 H Blood Pressure Pulse Oximetry Oxygen Delivery Oxygen Flow Rate 03/21/22 14:00 03/21/22 16:16 03/21/22 15:37 Temperature 38.3 C H 37.8 C H 37.8 C H Pulse Rate 101 H Respiratory Rate 22 H Blood Pressure 116/76 Pulse Oximetry 92 Oxygen Delivery Oxygen Flow Rate 03/21/22 17:16 03/21/22 16:00 03/21/22 21:40 Temperature 37.8 C H 37.6 C H Pulse Rate 98 93 Respiratory Rate 44 H Blood Pressure 88/42 L Pulse Oximetry 94 Oxygen Delivery Oxygen Flow Rate 03/21/22 21:41 03/21/22 20:00 03/21/22 20:00 Temperature Pulse Rate 105 H 105 H Respiratory Rate 18 Blood Pressure 86/63 L Pulse Oximetry 95 94 Oxygen Delivery Nasal Cannula Oxygen Flow Rate 3 03/21/22 19:40 03/21/22 21:35 03/21/22 21:48 Temperature 38.1 C H Pulse Rate 141 H 96 98 Respiratory Rate 42 H 34 H 36 H Blood Pressure 86/65 L Pulse Oximetry 93 Oxygen Delivery Oxygen Flow Rate 03/21/22 22:14 03/21/22 23:59 03/22/22 00:00 Temperature 37.9 C H 37.6 C H Pulse Rate 93 92 Respiratory Rate 46 H 48 H Blood Pressure 107/53 L 103/61 Pulse Oximetry 95 95 98 Oxygen Delivery Nasal Cannula Oxygen Flow Rate 2 03/22/22 00:00 03/22/22 02:57 03/22/22 03:05 Temperature Pulse Rate 91 89 90 Respiratory Rate 28 H 32 H Blood Pressure Pulse Oximetry Oxygen Delivery Oxygen Flow Rate 03/22/22 04:00 03/22/22 04:57 03/22/22 06:00 Temperature 37.3 C Pulse Rate 89 88 94 Respiratory Rate 40 H Blood Pressure 101/60 101/60 Pulse Oximetry 93 96 Oxygen Delivery Oxygen Flow Rate 03/22/22 08:32 03/22/22 08:39 03/22/22 08:40 Temperature Pulse Rate 89 95 Respiratory Rate 30 H 30 H Blood Pressure Pulse Oximetry 95 Oxygen Delivery Nasal Cannula Oxygen Flow Rate 3 03/22/22 08:00 03/22/22 08:00 03/22/22 10:00 Temperature 37.7 C H Pulse Rate 92 88 95 Respiratory Rate 35 H Blood Pressure 121/70 Pulse Oximetry 95 Oxygen Delivery Oxygen Flow Rate Intake/Output Intake/Output: Intake & Output 03/19/22 03/20/22 03/21/22 03/22/22 23:59 23:59 23:59 23:59 Intake Total 2800 350 3700 1130 Output Total 2350 2350 2475 1025 Balance 450 -2000 1225 105 Meds/Results Medications: Active Medications Generic Name Dose Route Start Last Admin Trade Name Freq PRN Reason Stop Dose Admin Acetaminophen 650 mg 03/20/22 09:01 03/21/22 14:37 Acetaminophen Elixir 325 Mg/10.15 Ml Udc FEED TUBE 650 mg Q4H PRN Administration Mild Pain (1-3) or Fever Albuterol 5 mg 03/16/22 14:00 03/22/22 02:56 Albuterol Sulfate Neb 2.5 Mg/3 Ml Inh INHALATION 5 mg Q6HRT EVELINE Administration Albuterol 2.5 mg 03/21/22 20:32 Albuterol Sulfate Neb 2.5 Mg/3 Ml Inh INHALATION Q4HRT PRN Shortness Of Breath Carbidopa/Levodopa 3 tablet 03/16/22 18:00 03/22/22 12:08 Carbidopa/Levodopa 25/100 Mg Tablet PO 3 tablet 0600,0900,120
[2022-03-22 13:05] LABS: Anion Gap 6 mmol/L (8-16); Blood Urea Nitrogen 55 mg/dL (9-20); Carbon Dioxide 23 mmol/L (22-30); Chloride 125 mmol/L (98-107); Estimated CRCL calculation 35 ml/min; Estimated Glomerular Filt Rate 31; Glucose 140 mg/dL (65-110); Phosphorus 3.2 mg/dL (2.5-4.5); Potassium 3.6 mmol/L (3.4-5.0); Sodium 154 mmol/L (137-145)
--- NOTE | 2022-03-22 13:40 | PM.PNNEP ---
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 (TRIAL PARALEGAL) insensible losses (fevers and gastric output) creatinine relatively stable aside from sodium, no critical electrolytes making urine renal ultrasound results noted continue IVFs for now follow trend of repeat labs and UOP (2) Hypernatremia: Code(s): E87.0 - Hyperosmolality and hypernatremia Status: Acute Assessment and Plan: due to severe free water deficit continue 1/2NS IVFs for now may need to swich to D5W IVFs once able to take enteral feeds, would start and titrate free water flushes alternatively, may need TPN and will need to add free water to this follow trend of sodium levels (3) Small bowel obstruction: Code(s): K56.609 - Unspecified intestinal obstruction, unspecified as to partial versus complete obstruction Status: Acute Assessment and Plan: due to incarcerated umbical hernia s/p exploratory laparotomy, small-bowel resection, and repair of incarcerated umbilical hernia Surgery following (4) Pneumonia: Qualifiers: Laterality: bilateral Lung location: lower lobe of lung Pneumonia type: due to unspecified organism Qualified Code(s): J18.9 - Pneumonia, unspecified organism Code(s): J18.9 - Pneumonia, unspecified organism Status: Acute Assessment and Plan: as noted by recent imaging possibly complicated by aspiration follow culture data on antibiotics (5) Parkinson's disease: Code(s): G20 - Parkinson's disease Status: Chronic Assessment and Plan: back on home medications Will continue to follow. Subjective Date/time seen: 03/22/22 13:40 Patient seems to be doing a bit better at this time; no real significant change in sodium or renal function but making good urine output at this time; febrile overnight as well; no apparent distress. Exam Narrative: General: elderly male in NAD Heart: normal S1 and S2; no rub Lungs: coarse breath sounds Abdomen: soft, nontender, nondistended, hypoactive bowel sounds Extremities: no cyanosis or clubbing; no edema Skin: warm and dry Objective Data Vital Signs Vital Signs: Vital Signs Temp Pulse Resp BP Pulse Ox O2 Del Method O2 Flow Rate 03/22/22 12:00 94 Nasal Cannula 3 03/22/22 12:00 93 03/22/22 09:10 95 Nasal Cannula 3 03/22/22 16:00 37.7 C H 88 28 H 112/48 L 95 03/22/22 16:52 38.7 C H 03/22/22 15:52 38.5 C H 03/22/22 14:20 93 34 H 03/22/22 12:00 38.3 C H 93 32 H 122/64 96 03/22/22 10:00 95 03/22/22 08:00 88 03/22/22 08:00 37.7 C H 92 35 H 121/70 95 03/22/22 08:40 95 Nasal Cannula 3 03/22/22 08:39 95 30 H 03/22/22 08:32 89 30 H 03/22/22 06:00 94 101/60 96 03/22/22 04:57 37.3 C 88 40 H 101/60 93 03/22/22 04:00 89 03/22/22 03:05 90 32 H 03/22/22 02:57 89 28 H 03/22/22 00:00 91 03/22/22 00:00 37.6 C H 92 48 H 103/61 98 03/21/22 23:59 37.9 C H 93 46 H 107/53 L 95 03/21/22 22:14 95 Nasal Cannula 2 03/21/22 21:48 98 36 H 03/21/22 21:35 96 34 H 03/21/22 20:00 94 Nasal Cannula 3 03/21/22 20:00 105 H 03/21/22 21:41 105 H 18 86/63 L 95 03/21/22 21:40 37.6 C H 93 44 H 88/42 L 94 Intake/Output Intake/Output: Intake & Output 03/19/22 03/20/22 03/21/22 03/22/22 23:59 23:59 23:59 23:59 Intake Total 2800 350 3700 1781 Output Total 2350 2350 2475 4100 Balance 450 0597 -5986 Meds/Results Medications: Active Medications Generic Name Dose Route Start Last Admin
--- NOTE | 2022-03-22 13:40 | P.PNNP_ITS ---
Progress Note: A&P Assessment and Plan (1) Acute kidney injury: Code(s): N17.9 - Acute kidney failure, unspecified Status: Acute Assessment and Plan: * multifactorial etiology: * relative hypotension/hemodynamic instability * sepsis/infection (pneumonia) * prerenal factors * concurrent use of HCTZ (INVESTMENTS MANAGER) * insensible losses (fevers and gastric output) * creatinine relatively stable * aside from sodium, no critical electrolytes * making urine * renal ultrasound results noted * continue IVFs for now * follow trend of repeat labs and UOP (2) Hypernatremia: Code(s): E87.0 - Hyperosmolality and hypernatremia Status: Acute Assessment and Plan: * due to severe free water deficit * continue 1/2NS IVFs for now * may need to swich to D5W IVFs * once able to take enteral feeds, would start and titrate free water flushes * alternatively, may need TPN and will need to add free water to this * follow trend of sodium levels (3) Small bowel obstruction: Code(s): K56.609 - Unspecified intestinal obstruction, unspecified as to partial versus complete obstruction Status: Acute Assessment and Plan: * due to incarcerated umbical hernia * s/p exploratory laparotomy, small-bowel resection, and repair of incarcerated umbilical hernia * Surgery following (4) Pneumonia: Qualifiers: Laterality: bilateral Lung location: lower lobe of lung Pneumonia type: due to unspecified organism Qualified Code(s): J18.9 - Pneumonia, unspecified organism Code(s): J18.9 - Pneumonia, unspecified organism Status: Acute Assessment and Plan: * as noted by recent imaging * possibly complicated by aspiration * follow culture data * on antibiotics (5) Parkinson's disease: Code(s): G20 - Parkinson's disease Status: Chronic Assessment and Plan: * back on home medications Will continue to follow. Subjective Date/time seen: 03/22/22 13:40 Patient seems to be doing a bit better at this time; no real significant change in sodium or renal function but making good urine output at this time; febrile overnight as well; no apparent distress. Exam Narrative: General: elderly male in NAD Heart: normal S1 and S2; no rub Lungs: coarse breath sounds Abdomen: soft, nontender, nondistended, hypoactive bowel sounds Extremities: no cyanosis or clubbing; no edema Skin: warm and dry Objective Data Vital Signs Vital Signs: Vital Signs Temp Pulse Resp BP Pulse Ox O2 Del Method O2 Flow Rate 03/22/22 12:00 94 Nasal Cannula 3 03/22/22 12:00 93 03/22/22 09:10 95 Nasal Cannula 3 03/22/22 16:00 37.7 C H 88 28 H 112/48 L 95 03/22/22 16:52 38.7 C H 03/22/22 15:52 38.5 C H 03/22/22 14:20 93 34 H 03/22/22 12:00 38.3 C H 93 32 H 122/64 96 03/22/22 10:00 95 03/22/22 08:00 88 03/22/22 08:00 37.7 C H 92 35 H 121/70 95 03/22/22 08:40 95 Nasal Cannula 3 03/22/22 08:39 95 30 H 03/22/22 08:32 89 30 H 03/22/22 06:00 94 101/60 96 03/22/22 04:57 37.3 C 88 40 H 101/60 93 03/22/22 04:00 89 03/22/22 03:05 90 32 H 03/22/22 02:57 89 28 H
--- NOTE | 2022-03-22 13:48 | PM.IMPN ---
Progress Note: A&P Assessment and Plan (1) Acute respiratory failure with hypoxia: Code(s): J96.01 - Acute respiratory failure with hypoxia Status: Acute Assessment and Plan: Likely due to aspiration pneumonia with severe sepsis requiring ICU admission. Extubated 03/19 and has been on 2-3L NC since extubation and is now in IMU. Also with poor respiratory effort due to overall generalized weakness from recent illness combined with chronic medical conditions. -Wean oxygen as tolerated -Will defer VQ scan for now (2) Fever: Code(s): R50.9 - Fever, unspecified Status: Acute Assessment and Plan: New onset - has not been febrile during hospitalization. No leukocytosis and wbc largely unchanged for the past 3 days. Bandemia present today and yesterday. May be due to atelectasis as patient cannot properly use the incentive spirometer and had small bowel resection and hernia repair on 03/18. 03/16 influenza, COVID19, urine pneumococcal and legionella negative. CXR from 03/21 shows mild improvement. Repeat COVID19 and influenza are negative. UA w/ leukocyte esterase. 03/21 bcx w/ no growth and 03/16 bcx finalized w/ no growth. May be related in intra-abdominal pathology. May need CT A/P if fever persisits. -Tylenol PRN fever -Gave one time dose of ibuprofen w/ calculated creatinine clearance of 39 -Continue zosyn and vancomycin -May need CT A/P to look for intra-abdominal abscess (3) Aspiration pneumonia: Code(s): J69.0 - Pneumonitis due to inhalation of food and vomit Status: Acute Assessment and Plan: Failed bedside swallow study and will need modified barium swallow by STRIP[employer] MACHINE OPERATOR. Currently tolerating tube feeds. Initially treated with zosyn, levofloxacin and vancomycin. Antibiotics de-escalated to zosyn, but given persistent fever will add vancomycin and continue zosyn for now. (4) Severe sepsis: Code(s): A41.9 - Sepsis, unspecified organism; R65.20 - Severe sepsis without septic shock Status: Acute Assessment and Plan: Now with fever, tachycardia and known source of pneumonia. Currently hemodynamically stable and will proceed with workup and treatment as noted above. (5) NATALIO (acute kidney injury): Code(s): N17.9 - Acute kidney failure, unspecified Status: Acute Assessment and Plan: Likely due to severe sepsis and appears to be improve but with persistent hypernatremia, will consult Nephrology. -Appreciate recommendations from Nephrology -Renally dose all medications -Avoid nephrotoxic agents (6) Small bowel obstruction: Code(s): K56.609 - Unspecified intestinal obstruction, unspecified as to partial versus complete obstruction Status: Acute Assessment and Plan: S/P small bowel resection and umbilical hernia repair on 03/18/22. -Appreciate recommendations from General Surgery -Holding tube feeds due to ileus (7) Hypernatremia: Code(s): E87.0 - Hyperosmolality and hypernatremia Status: Acute Assessment and Plan: Likely due to poor oral hydration. Nephrology consulted. Appreciate recommendations. (8) Dysphagia: Code(s): R13.10 - Dysphagia, unspecified Status: Acute Assessment and Plan: Needs modified barium swallow. Continue tube feeds for now. (9) Diet-controlled diabetes mellitus: Code(s): E11.9 - Type 2 diabetes mellitus without complications Status: Acute Assessment and Plan: Controlled. Continue POC glucose. Will monitor. (10) Parkinson's disease dementia: Code(s): G20 - Parkinson's disease; F02.80 - Dementia in other diseases classified elsewhere without behavioral disturbance Status: Acute Assessment and Plan: Continue carbidopa-levodopa. Holding clozapine for now and has been held since admission. No overt symptoms of clozapine withdrawal at this time. Stable. -Discontinued pramipexole per family requ
--- NOTE | 2022-03-22 13:58 | PCOTNOTE ---
Attempted Occupational therapy treatment, per RN hold patient for today due to unstable vitals (increase HR and low BP per RN). Will follow
[2022-03-22] MEDS: DEXTROSE 5% 1,000 ML 1,000 ML 75 ML IV CONT (15:44)
[2022-03-22] MEDS: ACETAMINOPHEN ELIXIR 325 MG/10.15 ML UDC 650 MG FEED TUBE (15:52)
[2022-03-22 17:26] LABS: Glucose Point of Care 125 mg/dl (65-105)
[2022-03-23] VITALS (25 sets, daily range): BP systolic 101–143; BP diastolic 54–79; PULSE 70–110; RESP 20–40; TEMP 36.3–38.1; O2SAT 92–98; BMI 11.0
[2022-03-23 01:01] LABS: Glucose Point of Care 128 mg/dl (65-105)
[2022-03-23] MEDS: IPRATROPIUM BR 0.02% INH SOLN 0.5 MG/2.5 ML VIAL INHALATION ×4 (02:47→20:06)
[2022-03-23] MEDS: ALBUTEROL SULFATE NEB 2.5 MG/3 ML INH 5 MG INHALATION ×4 (02:47→20:06)
[2022-03-23 05:01] LABS: Basophils Percent Auto 0.3 % (0.2-1.2); Eosinophils Absolute Auto 0.2 K/mm3 (0-0.3); Eosinophils Percent Auto 1.6 % (0-4.4); Hematocrit 44.9 % (42.0-52.0); Hemoglobin 13.7 g/dL (14.0-18.0); Immature Granulocyte Percent A 0.8 % (0-0.5); Lymphocytes Absolute Auto 0.92 K/mm3 (0.9-3.2); Lymphocytes Percent Auto 7.4 % (18.3-44.2); Mean Corpuscular HGB Conc 30.5 g/dl (32-36); Mean Corpuscular Hemoglobin 30.2 pg (26-34); Mean Corpuscular Volume 99.1 fl (80-100); Mean Platelet Volume 11.9 fl (7.4-10.4); Monocytes Absolute Auto 0.6 K/mm3 (0.1-0.6); Monocytes Percent Auto 5.1 % (2.6-8.5); Neutrophils Absolute Auto 10.6 K/mm3 (1.3-6.7); Neutrophils Percent Auto 84.8 % (45.5-73.1); Platelet Count Result 206 k/mm3 (150-375); Red Blood Count 4.53 M/mm3 (4.6-6.20); Red Cell Distribution Width 14.5 % (11.5-14.5); White Blood Count 12.5 K/mm3 (4.5-10.0)
[2022-03-23 05:15] LABS: Alanine Aminotransferase 17 U/L (6-50); Alkaline Phosphatase 81 U/L (38-126); Anion Gap 9 mmol/L (8-16); Aspartate Amino Transferase 51 U/L (17-59); Blood Urea Nitrogen 52 mg/dL (9-20); Calcium 8.2 mg/dL (8.4-10.2); Carbon Dioxide 24 mmol/L (22-30); Chloride 124 mmol/L (98-107); Estimated CRCL calculation 33 ml/min; Estimated Glomerular Filt Rate 30; Glucose 151 mg/dL (65-110); Magnesium 2.5 mg/dL (1.6-2.3); Phosphorus 3.5 mg/dL (2.5-4.5); Potassium 3.6 mmol/L (3.4-5.0); Sodium 157 mmol/L (137-145)
[2022-03-23] MEDS: PANTOPRAZOLE SODIUM IV 40 MG VIAL IV PUSH (08:12)
[2022-03-23] MEDS: HEPARIN SODIUM 5,000 UNITS/ML VIAL 5000 UNITS SUB-Q ×2 (08:12→21:01)
[2022-03-23] MEDS: DEXTROSE 5% 1,000 ML 1,000 ML 75 ML IV CONT ×2 (08:12→18:44)
[2022-03-23] MEDS: CARBIDOPA/LEVODOPA 25/100 MG TABLET 3 TABLET PO ×5 (09:00→21:01)
--- NOTE | 2022-03-23 10:43 | PM.PNNEP ---
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 (KENNEL HAND) insensible losses (fevers and gastric output) creatinine relatively stable aside from sodium, no critical electrolytes making urine renal ultrasound results noted continue IVFs for now follow trend of repeat labs and UOP (2) Hypernatremia: Code(s): E87.0 - Hyperosmolality and hypernatremia Status: Acute Assessment and Plan: due to severe free water deficit IVFs adjusted once able to take enteral feeds, would start and titrate free water flushes alternatively, may need TPN and will need to add free water to this follow trend of sodium levels (3) Small bowel obstruction: Code(s): K56.609 - Unspecified intestinal obstruction, unspecified as to partial versus complete obstruction Status: Acute Assessment and Plan: due to incarcerated umbical hernia s/p exploratory laparotomy, small-bowel resection, and repair of incarcerated umbilical hernia Surgery following (4) Pneumonia: Qualifiers: Laterality: bilateral Lung location: lower lobe of lung Pneumonia type: due to unspecified organism Qualified Code(s): J18.9 - Pneumonia, unspecified organism Code(s): J18.9 - Pneumonia, unspecified organism Status: Acute Assessment and Plan: as noted by recent imaging possibly complicated by aspiration follow culture data on antibiotics (5) Parkinson's disease: Code(s): G20 - Parkinson's disease Status: Chronic Assessment and Plan: back on home medications Will continue to follow. Subjective Date/time seen: 03/23/22 10:43 No apparent distress voiced at the time of my visit; still with persistent fevers despite current antibiotic therapy; no real change in sodium and creatinine at this time; IVFs changed to D5W; no apparent distress noted. Exam Narrative: General: elderly male in NAD Heart: normal S1 and S2; no rub Lungs: coarse breath sounds Abdomen: soft, nontender, nondistended, hypoactive bowel sounds Extremities: no cyanosis or clubbing; no edema Skin: no rash Objective Data Vital Signs Vital Signs: Vital Signs Temp Pulse Resp BP Pulse Ox O2 Del Method O2 Flow Rate 03/23/22 08:00 37.6 C H 94 22 H 116/65 96 03/23/22 08:15 84 27 H 03/23/22 08:05 82 27 H 03/23/22 08:13 96 Nasal Cannula 3 03/23/22 04:00 91 38 H 95 Nasal Cannula 3 03/23/22 06:00 91 03/23/22 04:00 90 03/23/22 06:00 91 03/23/22 04:00 36.9 C 93 38 H 124/67 95 03/23/22 03:05 91 30 H 03/23/22 00:00 87 30 H 94 Nasal Cannula 3 03/23/22 02:00 89 03/23/22 00:00 87 03/22/22 20:48 91 34 H 03/23/22 02:47 87 30 H 03/23/22 00:00 37.1 C 89 40 H 101/54 L 94 03/22/22 20:00 88 34 H 96 Nasal Cannula 3 03/22/22 22:00 88 03/22/22 20:00 90 03/22/22 20:38 96 Nasal Cannula 3 03/22/22 20:25 89 34 H 03/22/22 20:00 38.1 C H 96 32 H 135/74 96 03/22/22 16:00 95 Nasal Cannula 3 03/22/22 18:00 90 03/22/22 16:00 85 03/22/22 14:00 85 03/22/22 12:00 94 Nasal Cannula 3 03/22/22 12:00 93 03/22/22 16:00 37.7 C H 88 28 H 112/48 L 95 03/22/22 16:52 38.7 C H 03/22/22 15:52 38.5 C H 03/22/22 14:20 93 34 H 03/22/22 12:00 38.3 C H 93 32 H 122/64 96 Intake/Output Intake/Output: Intake & Output 03/20/22 03/21/22 03/22/22 03/23/22 23:59 23:59 23:59 23:59 Intake Total 350 3700 1781 1050 Output Total 2350 2475 4100 [facility] Balance -1999 6529 -[id number] -989 Meds/Results Medi
--- NOTE | 2022-03-23 10:43 | P.PNNP_ITS ---
Progress Note: A&P Assessment and Plan (1) Acute kidney injury: Code(s): N17.9 - Acute kidney failure, unspecified Status: Acute Assessment and Plan: * multifactorial etiology: * relative hypotension/hemodynamic instability * sepsis/infection (pneumonia) * prerenal factors * concurrent use of HCTZ (TAR HEEL) * insensible losses (fevers and gastric output) * creatinine relatively stable * aside from sodium, no critical electrolytes * making urine * renal ultrasound results noted * continue IVFs for now * follow trend of repeat labs and UOP (2) Hypernatremia: Code(s): E87.0 - Hyperosmolality and hypernatremia Status: Acute Assessment and Plan: * due to severe free water deficit * IVFs adjusted * once able to take enteral feeds, would start and titrate free water flushes * alternatively, may need TPN and will need to add free water to this * follow trend of sodium levels (3) Small bowel obstruction: Code(s): K56.609 - Unspecified intestinal obstruction, unspecified as to partial versus complete obstruction Status: Acute Assessment and Plan: * due to incarcerated umbical hernia * s/p exploratory laparotomy, small-bowel resection, and repair of incarcerated umbilical hernia * Surgery following (4) Pneumonia: Qualifiers: Laterality: bilateral Lung location: lower lobe of lung Pneumonia type: due to unspecified organism Qualified Code(s): J18.9 - Pneumonia, unspecified organism Code(s): J18.9 - Pneumonia, unspecified organism Status: Acute Assessment and Plan: * as noted by recent imaging * possibly complicated by aspiration * follow culture data * on antibiotics (5) Parkinson's disease: Code(s): G20 - Parkinson's disease Status: Chronic Assessment and Plan: * back on home medications Will continue to follow. Subjective Date/time seen: 03/23/22 10:43 No apparent distress voiced at the time of my visit; still with persistent fevers despite current antibiotic therapy; no real change in sodium and creatinine at this time; IVFs changed to D5W; no apparent distress noted. Exam Narrative: General: elderly male in NAD Heart: normal S1 and S2; no rub Lungs: coarse breath sounds Abdomen: soft, nontender, nondistended, hypoactive bowel sounds Extremities: no cyanosis or clubbing; no edema Skin: no rash Objective Data Vital Signs Vital Signs: Vital Signs Temp Pulse Resp BP Pulse Ox O2 Del Method O2 Flow Rate 03/23/22 08:00 37.6 C H 94 22 H 116/65 96 03/23/22 08:15 84 27 H 03/23/22 08:05 82 27 H 03/23/22 08:13 96 Nasal Cannula 3 03/23/22 04:00 91 38 H 95 Nasal Cannula 3 03/23/22 06:00 91 03/23/22 04:00 90 03/23/22 06:00 91 03/23/22 04:00 36.9 C 93 38 H 124/67 95 03/23/22 03:05 91 30 H 03/23/22 00:00 87 30 H 94 Nasal Cannula 3 03/23/22 02:00 89 03/23/22 00:00 87 03/22/22 20:48 91 34 H 03/23/22 02:47 87 30 H 03/23/22 00:00 37.1 C 89 40 H 101/54 L 94 03/22/22 20:00 88 34 H 96 Nasal Cannula 3 03/22/22 22:00 88 03/22/22 20:00 90 03/22/22 20:38 96 Nasal Ca
--- NOTE | 2022-03-23 10:57 | PM.PNGS ---
Progress Note: A&P Assessment and Plan (1) Status post hernia repair: Code(s): Z98.890 - Other specified postprocedural states; Z87.19 - Personal history of other diseases of the digestive system Status: Acute Assessment and Plan: long d/w family and decision to clamp NG and try to restart TF, did discuss TPN and they want to hold off for now, also discussed CT abd/pelvis if WBC cont to trend up Subjective Subjective Date/Time Seen: 03/23/22 10:57 seems less alert today, +flatus Review of Systems Review of Systems: ROS unobtainable: Yes unobtainable due to medical condition and unobtainable due to mental status Exam Const: General: confusion, ill appearing and lethargic Resp: Auscultation: diminished lung sounds Cardio: Rate: regular rate Rhythm: regular rhythm GI: Other: soft, sl dist, NT, incision C/D/I Objective Data Vital Signs Vital Signs: Vital Signs - 24 hr 03/22/22 12:00 03/22/22 14:20 03/22/22 15:52 Temperature 38.3 C H 38.5 C H Pulse Rate 93 93 Respiratory Rate 32 H 34 H Blood Pressure 122/64 Pulse Oximetry 96 Oxygen Delivery Oxygen Flow Rate Fraction of Inspired Oxygen 03/22/22 16:52 03/22/22 16:00 03/22/22 12:00 Temperature 38.7 C H 37.7 C H Pulse Rate 88 93 Respiratory Rate 28 H Blood Pressure 112/48 L Pulse Oximetry 95 Oxygen Delivery Oxygen Flow Rate Fraction of Inspired Oxygen 03/22/22 12:00 03/22/22 14:00 03/22/22 16:00 Temperature Pulse Rate 85 85 Respiratory Rate Blood Pressure Pulse Oximetry 94 Oxygen Delivery Nasal Cannula Oxygen Flow Rate 3 Fraction of Inspired Oxygen 03/22/22 18:00 03/22/22 16:00 03/22/22 20:00 Temperature 38.1 C H Pulse Rate 90 96 Respiratory Rate 32 H Blood Pressure 135/74 Pulse Oximetry 95 96 Oxygen Delivery Nasal Cannula Oxygen Flow Rate 3 Fraction of Inspired Oxygen 03/22/22 20:25 03/22/22 20:38 03/22/22 20:00 Temperature Pulse Rate 89 90 Respiratory Rate 34 H Blood Pressure Pulse Oximetry 96 Oxygen Delivery Nasal Cannula Oxygen Flow Rate 3 Fraction of Inspired Oxygen 03/22/22 22:00 03/22/22 20:00 03/23/22 00:00 Temperature 37.1 C Pulse Rate 88 88 89 Respiratory Rate 34 H 40 H Blood Pressure 101/54 L Pulse Oximetry 96 94 Oxygen Delivery Nasal Cannula Oxygen Flow Rate 3 Fraction of Inspired Oxygen 45 03/23/22 02:47 03/22/22 20:48 03/23/22 00:00 Temperature Pulse Rate 87 91 87 Respiratory Rate 30 H 34 H Blood Pressure Pulse Oximetry Oxygen Delivery Oxygen Flow Rate Fraction of Inspired Oxygen 03/23/22 02:00 03/23/22 00:00 03/23/22 03:05 Temperature Pulse Rate 89 87 91 Respiratory Rate 30 H 30 H Blood Pressure Pulse Oximetry 94 Oxygen Delivery Nasal Cannula Oxygen Flow Rate 3 Fraction of Inspired Oxygen 45 03/23/22 04:00 03/23/22 06:00 03/23/22 04:00 Temperature 36.9 C Pulse Rate 93 91 90 Respiratory Rate 38 H Blood Pressure 124/67 Pulse Oximetry 95 Oxygen Delivery Oxygen Flow Rate Fraction of Inspired Oxygen 03/23/22 06:00 03/23/22 04:00 03/23/22 08:13 Temperature Pulse Rate 91 91 Respiratory Rate 38 H Blood Pressure Pulse Oximetry 95 96 Oxygen Delivery Nasal Cannula Nasal Cannula Oxygen Flow Rate 3 3 Fraction of Inspired Oxygen 45 03/23/22 08:05 03/23/22 08:15 03/23/22 08:00 Temperature 37.6 C H Pulse Rate 82 84 94 Respiratory Rate 27 H 27 H 22 H Blood Pressure 116/65 Pulse Oximetry 96 Oxygen Delivery Oxygen Flow Rate Fraction of Inspired Oxygen Intake/Output Intake/Output: Intake & Output 03/20/22 03/21/22 03/22/22 03/23/22 23:59 23:59 23:59 23:59 Intake Total 350 3700 1781 1050 Output Total 2350 8514 4102 1300 [facility] -1999 1225 -2319 -250 Meds/Results Medications: Active Medications Generic Name Dose Route Start Last Admin Trade Name Freq PRN Reas
[2022-03-23 11:37] LABS: Glucose Point of Care 147 mg/dl (65-105)
[2022-03-23] MEDS: ACETAMINOPHEN ELIXIR 325 MG/10.15 ML UDC 650 MG FEED TUBE ×2 (13:55→23:34)
--- NOTE | 2022-03-23 14:37 | PCNFU ---
Nutrition Follow-Up Complete: Swallowing Difficulties as related to Parkinsons as evidenced by Tube feeding diet orders. Goal: Meet estimanted nutritional needs Pt is not progressing towards goal. Continue with current goal at this time. Pt current nutrition is Tube Feeding diet of Glucerna 1.2 - Held for intolerance Last recorded weight is 99.7 kg, stable. Recommend re-weighing prior to d/c. Bowel Motility: LBM reported 03/20/22 Labs Reviewed:Hgb 13.7, Ca 8.2, Alb 3.0, Na 157, Cl 124, GFR 30, BUN 52, Cr 2.20, Glu 151, Mg 2.5 Meds: Tylenol, Albuterol, Sinemet, Dextrose, Heparin Sodium, Protonix, Zosyn Skin: Abdomen Incision Additional Notes: Glucerna 1.2 was running at rate of 10ml/hr. TF was held due to intolerance. Spoke with nursing staff who reports that it was held due to ileus. Per MD orders, plan is for NG tube to be clamped for 4-6 hrs and will restart trickle feeding after this time. Glucerna 1.2 running at rate of 10mL/hr over 22 hours will provide 264kcal, 13g of protein, and 177mL of water. Pt to have MBS when pt is more alert. Agree with diet orders at this time. Will continue to follow. Will monitor every Saturday and Saturday.
[2022-03-23 17:16] LABS: Glucose Point of Care 146 mg/dl (65-105)
[2022-03-23 18:41] LABS: Albumin Level 3.1 g/dL (3.5-5.1); Anion Gap 9 mmol/L (8-16); Blood Urea Nitrogen 53 mg/dL (9-20); Calcium 8.1 mg/dL (8.4-10.2); Carbon Dioxide 24 mmol/L (22-30); Chloride 122 mmol/L (98-107); Estimated CRCL calculation 33 ml/min; Estimated Glomerular Filt Rate 30; Glucose 150 mg/dL (65-110); Phosphorus 4.1 mg/dL (2.5-4.5); Potassium 3.6 mmol/L (3.4-5.0); Sodium 155 mmol/L (137-145)
--- NOTE | 2022-03-23 21:16 | PM.IMPN ---
Progress Note: A&P Assessment and Plan (1) Acute respiratory failure with hypoxia: Code(s): J96.01 - Acute respiratory failure with hypoxia Status: Acute Assessment and Plan: Likely due to aspiration pneumonia with severe sepsis requiring ICU admission. Extubated 03/19 and has been on 2-3L NC since extubation and is now in IMU. Also with poor respiratory effort due to overall generalized weakness from recent illness combined with chronic medical conditions. -Wean oxygen as tolerated -Continue vancomycin #2 and zosyn # 7 (2) Fever: Code(s): R50.9 - Fever, unspecified Status: Acute Assessment and Plan: New onset - has not been febrile during hospitalization. No leukocytosis and wbc largely unchanged for the past 3 days. Bandemia present today and yesterday. May be due to atelectasis as patient cannot properly use the incentive spirometer and had small bowel resection and hernia repair on 03/18. 03/16 influenza, COVID19, urine pneumococcal and legionella negative. CXR from 03/21 shows mild improvement. Repeat COVID19 and influenza are negative. UA w/ leukocyte esterase. 03/21 bcx w/ no growth and 03/16 bcx finalized w/ no growth. CXR 03/23 w/ penumonia unchanged. May be related in intra-abdominal pathology. May need CT A/P if fever persisits. -Tylenol PRN fever -Continue zosyn and vancomycin -May need CT A/P to look for intra-abdominal abscess (3) Aspiration pneumonia: Code(s): J69.0 - Pneumonitis due to inhalation of food and vomit Status: Acute Assessment and Plan: Failed bedside swallow study and will need modified barium swallow by ENGINEERING OFFICER. Currently tolerating tube feeds. Initially treated with zosyn, levofloxacin and vancomycin. Antibiotics de-escalated to zosyn, but given persistent fever added vancomycin. (4) Severe sepsis: Code(s): A41.9 - Sepsis, unspecified organism; R65.20 - Severe sepsis without septic shock Status: Acute Assessment and Plan: Now with fever, tachycardia and known source of pneumonia. Currently hemodynamically stable and will proceed with workup and treatment as noted above. (5) NATALIO (acute kidney injury): Code(s): N17.9 - Acute kidney failure, unspecified Status: Acute Assessment and Plan: Likely due to severe sepsis and appears to be improve but with persistent hypernatremia, will consult Nephrology. -Appreciate recommendations from Nephrology -Renally dose all medications -Avoid nephrotoxic agents (6) Small bowel obstruction: Code(s): K56.609 - Unspecified intestinal obstruction, unspecified as to partial versus complete obstruction Status: Acute Assessment and Plan: S/P small bowel resection and umbilical hernia repair on 03/18/22. -Appreciate recommendations from General Surgery -Holding tube feeds due to ileus (7) Hypernatremia: Code(s): E87.0 - Hyperosmolality and hypernatremia Status: Acute Assessment and Plan: Likely due to poor oral hydration. Nephrology consulted. Appreciate recommendations. (8) Dysphagia: Code(s): R13.10 - Dysphagia, unspecified Status: Acute Assessment and Plan: Tube feed held due to ileus. (9) Diet-controlled diabetes mellitus: Code(s): E11.9 - Type 2 diabetes mellitus without complications Status: Acute Assessment and Plan: Controlled. Continue POC glucose. Will monitor. (10) Parkinson's disease dementia: Code(s): G20 - Parkinson's disease; F02.80 - Dementia in other diseases classified elsewhere without behavioral disturbance Status: Acute Assessment and Plan: Continue carbidopa-levodopa. Holding clozapine for now and has been held since admission. No overt symptoms of clozapine withdrawal at this time. Stable. -Discontinued pramipexole per family request as it was not taken regularly at home (11) Ileus: Code(s): K56.7 - Ileus, un
[2022-03-23 23:48] LABS: Glucose Point of Care 167 mg/dl (65-105)
[2022-03-24] VITALS (29 sets, daily range): BP systolic 108–131; BP diastolic 59–74; PULSE 87–108; RESP 16–32; TEMP 36.5–38.4; O2SAT 93–99
[2022-03-24 00:17] LABS: Amorphous Sediment Urine Few; RBC Urine >75 /hpf (0-2); Squamous Epithelial Cell Urine Rare /hpf (Few); WBC Urine 16-20 /hpf (0-3)
[2022-03-24 00:19] LABS: Add Urine Microscopic? YES; Appearance Urine Slightly Cloudy (Clear); Color Urine Yellow (Yellow)
[2022-03-24 00:20] LABS: Bilirubin Urine Negative (Negative); Blood Urine 3+ (Negative); Glucose Urine UA Negative (Negative); Ketones Urine Negative (Negative); Nitrate Urine Negative (Negative); Protein Urine 1+ mg/dL (Negative); pH Urine 5.5 (5.0-9.0)
[2022-03-24 00:21] LABS: Leukocyte Esterase Ur Negative LEU/UL (NEGATIVE)
[2022-03-24] MEDS: IPRATROPIUM BR 0.02% INH SOLN 0.5 MG/2.5 ML VIAL INHALATION ×4 (02:00→19:43)
[2022-03-24] MEDS: ALBUTEROL SULFATE NEB 2.5 MG/3 ML INH 5 MG INHALATION ×4 (02:00→19:43)
[2022-03-24 06:48] LABS: Glucose Point of Care 151 mg/dl (65-105)
[2022-03-24 08:54] LABS: Albumin Level 3.3 g/dL (3.5-5.1); Anion Gap 7 mmol/L (8-16); Blood Urea Nitrogen 55 mg/dL (9-20); Calcium 7.9 mg/dL (8.4-10.2); Carbon Dioxide 24 mmol/L (22-30); Chloride 121 mmol/L (98-107); Estimated CRCL calculation 35 ml/min; Estimated Glomerular Filt Rate 31; Glucose 152 mg/dL (65-110); Phosphorus 4.3 mg/dL (2.5-4.5); Potassium 4.2 mmol/L (3.4-5.0); Sodium 152 mmol/L (137-145)
[2022-03-24 09:35] LABS: Basophils Absolute Auto 0.1 K/mm3 (0.0-0.1); Basophils Percent Auto 0.4 % (0.2-1.2); Eosinophils Absolute Auto 0.1 K/mm3 (0-0.3); Eosinophils Percent Auto 0.8 % (0-4.4); Hematocrit 48.3 % (42.0-52.0); Hemoglobin 14.8 g/dL (14.0-18.0); Immature Granulocyte Absolute 0.08 K/mm3 (0.00-0.031); Immature Granulocyte Percent A 0.6 % (0-0.5); Lymphocytes Absolute Auto 0.91 K/mm3 (0.9-3.2); Lymphocytes Percent Auto 6.6 % (18.3-44.2); Mean Corpuscular HGB Conc 30.6 g/dl (32-36); Mean Corpuscular Hemoglobin 30.2 pg (26-34); Mean Corpuscular Volume 98.6 fl (80-100); Mean Platelet Volume 12.1 fl (7.4-10.4); Monocytes Absolute Auto 0.7 K/mm3 (0.1-0.6); Monocytes Percent Auto 4.7 % (2.6-8.5); Neutrophils Absolute Auto 12.1 K/mm3 (1.3-6.7); Neutrophils Percent Auto 86.9 % (45.5-73.1); Platelet Count Result 194 k/mm3 (150-375); Red Cell Distribution Width 14.2 % (11.5-14.5); White Blood Count 13.9 K/mm3 (4.5-10.0)
[2022-03-24] MEDS: DEXTROSE 5% 1,000 ML 1,000 ML 75 ML IV CONT (09:35)
[2022-03-24] MEDS: CARBIDOPA/LEVODOPA 25/100 MG TABLET 3 TABLET PO ×5 (09:37→21:03)
[2022-03-24] MEDS: PANTOPRAZOLE SODIUM IV 40 MG VIAL IV PUSH (09:38)
[2022-03-24] MEDS: HEPARIN SODIUM 5,000 UNITS/ML VIAL 5000 UNITS SUB-Q ×2 (09:41→21:03)
--- NOTE | 2022-03-24 12:42 | PM.IMPN ---
Progress Note: A&P Assessment and Plan (1) Acute respiratory failure with hypoxia: Code(s): J96.01 - Acute respiratory failure with hypoxia Status: Acute Assessment and Plan: Likely due to aspiration pneumonia with severe sepsis requiring ICU admission. Extubated 03/19 and has been on 2-3L NC since extubation. CXR w/ penumonia. Antibiotics changed to imipenem and vancomycin late yesterday evening. Ordered chlamydia and mycoplasma pneumonia PCR for sputum. -Continue imipenem and vancomycin (2) Fever: Code(s): R50.9 - Fever, unspecified Status: Acute Assessment and Plan: Persistent. Antibiotics changed overnight. Will monitor to see if improvement over the next 24 hours. BCX remain negative. Sent repeat UA & UCX. -Tylenol PRN fever -Continue pneumonia treatment (3) Aspiration pneumonia: Code(s): J69.0 - Pneumonitis due to inhalation of food and vomit Status: Acute Assessment and Plan: Discussed dysphagia with today. says patient would not want feeding tube. (4) Severe sepsis: Code(s): A41.9 - Sepsis, unspecified organism; R65.20 - Severe sepsis without septic shock Status: Acute Assessment and Plan: Fever, tachycardia and known source of pneumonia. Currently hemodynamically stable and will proceed with workup and treatment as noted above. (5) NATALIO (acute kidney injury): Code(s): N17.9 - Acute kidney failure, unspecified Status: Acute Assessment and Plan: Likely due to severe sepsis and appears to be improve but with persistent hypernatremia, will consult Nephrology. Hopefully discontinuation of zosyn will help with NATALIO. Appears to be improving. -Appreciate recommendations from Nephrology -Renally dose all medications -Avoid nephrotoxic agents (6) Small bowel obstruction: Code(s): K56.609 - Unspecified intestinal obstruction, unspecified as to partial versus complete obstruction Status: Acute Assessment and Plan: S/P small bowel resection and umbilical hernia repair on 03/18/22. -Appreciate recommendations from General Surgery -Holding tube feeds due to ileus (7) Hypernatremia: Code(s): E87.0 - Hyperosmolality and hypernatremia Status: Acute Assessment and Plan: Improving. Nephrology consulted. Appreciate recommendations. (8) Dysphagia: Code(s): R13.10 - Dysphagia, unspecified Status: Acute Assessment and Plan: Tube feed held due to ileus. (9) Diet-controlled diabetes mellitus: Code(s): E11.9 - Type 2 diabetes mellitus without complications Status: Acute Assessment and Plan: Controlled. Continue POC glucose. Will monitor. (10) Parkinson's disease dementia: Code(s): G20 - Parkinson's disease; F02.80 - Dementia in other diseases classified elsewhere without behavioral disturbance Status: Acute Assessment and Plan: Continue carbidopa-levodopa. Holding clozapine for now and has been held since admission. No overt symptoms of clozapine withdrawal at this time. Stable. -Discontinued pramipexole per family request as it was not taken regularly at home (11) Ileus: Code(s): K56.7 - Ileus, unspecified Status: Acute Assessment and Plan: NGT with significant bilious output after being clamped overnight. -NGT to lower intermittent wall suction Additional Plan Heparin DVT prophylaxis. Subjective Date/time seen: 03/24/22 20:42 at bedside this morning and had long discussion about goals of care. was extremely receptive, understanding, realistic and reasonable. Patient denies any abdominal pain. Patient denies having any difficulty breathing or shortness of breath. Febrile overnight Review of Systems Respiratory: Respiratory: Denies dyspnea Exam Narrative: GENERAL: NAD, cooperative, lying in bed HEENT: Normocephalic, atr
--- NOTE | 2022-03-24 13:02 | P.PNNP_ITS ---
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) * insensible losses (fevers and gastric output) * creatinine relatively stable * aside from sodium, no critical electrolytes * making urine * renal ultrasound results noted * continue IVFs for now * follow trend of repeat labs and UOP (2) Hypernatremia: Code(s): E87.0 - Hyperosmolality and hypernatremia Status: Acute Assessment and Plan: * due to severe free water deficit * IVFs adjusted * once able to take enteral feeds, would start and titrate free water flushes * alternatively, may need TPN and will need to add free water to this * follow trend of sodium levels (3) Small bowel obstruction: Code(s): K56.609 - Unspecified intestinal obstruction, unspecified as to partial versus complete obstruction Status: Acute Assessment and Plan: * due to incarcerated umbical hernia * s/p exploratory laparotomy, small-bowel resection, and repair of incarcerated umbilical hernia * Surgery following (4) Pneumonia: Qualifiers: Laterality: bilateral Lung location: lower lobe of lung Pneumonia type: due to unspecified organism Qualified Code(s): J18.9 - Pneumonia, unspecified organism Code(s): J18.9 - Pneumonia, unspecified organism Status: Acute Assessment and Plan: * as noted by recent imaging * possibly complicated by aspiration * follow culture data * on antibiotics (5) Parkinson's disease: Code(s): G20 - Parkinson's disease Status: Chronic Assessment and Plan: * back on home medications Will continue to follow. Subjective Date/time seen: 03/24/22 13:02 No acute issues or problems noted at this time; some improvement noted in sodium level by AM labs; no acute issues/events overnight or earlier this morning other that on/off fevers still; discussed with at bedside. Exam Narrative: General: elderly male in NAD Heart: normal S1 and S2; no rub Lungs: coarse breath sounds Abdomen: soft, nontender, nondistended, hypoactive bowel sounds Extremities: no cyanosis or clubbing; no edema Skin: no nodules Objective Data Vital Signs Vital Signs: Vital Signs Temp Pulse Resp BP Pulse Ox O2 Del Method O2 Flow Rate 03/24/22 12:00 106 H 03/24/22 12:00 95 Nasal Cannula 3 03/24/22 11:45 38.0 C H 105 H 20 113/67 95 03/24/22 10:00 100 03/24/22 08:00 101 H 03/24/22 08:00 37.3 C 90 28 H 112/65 95 03/24/22 09:48 94 Nasal Cannula 3 03/24/22 08:17 102 H 28 H 03/24/22 08:12 100 26 H 94 Nasal Cannula 3 03/24/22 08:08 100 26 H 03/24/22 06:00 99 03/24/22 04:37 37.7 C H 97 20 131/65 99 03/24/22 04:00 95 28 H 98 Nasal Cannula 3 03/24/22 04:00 95 03/24/22 02:15 87 28 H 03/24/22 02:01 88 32 H 03/24/22 00:00 89 24 H 98 Nasal Cannula 3 03/24/22 02:00 89 03/24/22 00:00 90 03/24/22 0
--- NOTE | 2022-03-24 13:02 | PM.PNNEP ---
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) insensible losses (fevers and gastric output) creatinine relatively stable aside from sodium, no critical electrolytes making urine renal ultrasound results noted continue IVFs for now follow trend of repeat labs and UOP (2) Hypernatremia: Code(s): E87.0 - Hyperosmolality and hypernatremia Status: Acute Assessment and Plan: due to severe free water deficit IVFs adjusted once able to take enteral feeds, would start and titrate free water flushes alternatively, may need TPN and will need to add free water to this follow trend of sodium levels (3) Small bowel obstruction: Code(s): K56.609 - Unspecified intestinal obstruction, unspecified as to partial versus complete obstruction Status: Acute Assessment and Plan: due to incarcerated umbical hernia s/p exploratory laparotomy, small-bowel resection, and repair of incarcerated umbilical hernia Surgery following (4) Pneumonia: Qualifiers: Laterality: bilateral Lung location: lower lobe of lung Pneumonia type: due to unspecified organism Qualified Code(s): J18.9 - Pneumonia, unspecified organism Code(s): J18.9 - Pneumonia, unspecified organism Status: Acute Assessment and Plan: as noted by recent imaging possibly complicated by aspiration follow culture data on antibiotics (5) Parkinson's disease: Code(s): G20 - Parkinson's disease Status: Chronic Assessment and Plan: back on home medications Will continue to follow. Subjective Date/time seen: 03/24/22 13:02 No acute issues or problems noted at this time; some improvement noted in sodium level by AM labs; no acute issues/events overnight or earlier this morning other that on/off fevers still; discussed with at bedside. Exam Narrative: General: elderly male in NAD Heart: normal S1 and S2; no rub Lungs: coarse breath sounds Abdomen: soft, nontender, nondistended, hypoactive bowel sounds Extremities: no cyanosis or clubbing; no edema Skin: no nodules Objective Data Vital Signs Vital Signs: Vital Signs Temp Pulse Resp BP Pulse Ox O2 Del Method O2 Flow Rate 03/24/22 12:00 106 H 05/28/22 12:00 95 Nasal Cannula 3 03/24/22 11:45 38.0 C H 105 H 20 113/67 95 03/24/22 10:00 100 03/24/22 08:00 101 H 03/24/22 08:00 37.3 C 90 28 H 112/65 95 03/24/22 09:48 94 Nasal Cannula 3 03/24/22 08:17 102 H 28 H 03/24/22 08:12 100 26 H 94 Nasal Cannula 3 03/24/22 08:08 100 26 H 03/24/22 06:00 99 03/24/22 04:37 37.7 C H 97 20 131/65 99 03/24/22 04:00 95 28 H 98 Nasal Cannula 3 03/24/22 04:00 95 03/24/22 02:15 87 28 H 03/24/22 02:01 88 32 H 03/24/22 00:00 89 24 H 98 Nasal Cannula 3 03/24/22 02:00 89 03/24/22 00:00 90 03/24/22 00:01 38.4 C H 94 24 H 108/66 98 03/23/22 22:00 91 03/23/22 20:00 90 30 H 95 Nasal Cannula 3 03/23/22 20:00 91 03/23/22 20:20 90 30 H 03/23/22 20:07 91 95 Nasal Cannula 3 03/23/22 20:06 91 22 H 03/23/22 19:47 36.3 C L 110 H 32 H 143/79 H 92 03/23/22 18:00 91 03/23/22 16:00 86 03/23/22 16:00 98 Nasal Cannula 3 03/23/22 14:55 37.9 C H 03/23/22 16:00 38.1 C H 87 26 H 122/64 98 Intake/Output Intake/Output: Intake & Output 03/21/22 03/22/22 03/23/22 03/24/22 23:59 23:59 23:59 23:59 Intake Total 3700 2281 2651 1200 Output Total 2475 4100 5150 1750 Balance 1225 -1819 -2499 -550 Meds/Resul
[2022-03-24 13:03] LABS: Glucose Point of Care 149 mg/dl (65-105)
--- NOTE | 2022-03-24 13:08 | PM.PNGS ---
Progress Note: A&P Assessment and Plan (1) Small bowel obstruction: Code(s): K56.609 - Unspecified intestinal obstruction, unspecified as to partial versus complete obstruction Status: Acute Assessment and Plan: Abdominal exam appears benign. He seems to be healing well but does have an ileus. Will stimulate bowels and plan to get abdominal xray tomorrow. Fever likely secondary to pneumonia. Continue treatment per Hospitalist. Will restart tube feeds once ileus has resolved. Consider CT abd/pelvis if leukocytosis and fevers continue. (2) Status post hernia repair: Code(s): Z98.890 - Other specified postprocedural states; Z87.19 - Personal history of other diseases of the digestive system Status: Acute (3) Ileus: Code(s): K56.7 - Ileus, unspecified Status: Acute (4) Fever: Code(s): R50.9 - Fever, unspecified Status: Acute (5) Pneumonia: Qualifiers: Laterality: bilateral Lung location: lower lobe of lung Pneumonia type: due to unspecified organism Qualified Code(s): J18.9 - Pneumonia, unspecified organism Code(s): J18.9 - Pneumonia, unspecified organism Status: Acute Subjective Subjective Date/Time Seen: 03/24/22 13:08 Interval history: No flatus or BM yet. Patient says he's hungry. Denies abdominal pain or nausea. Exam GI: Inspection: non-distended and incision (intact with jasmyn) GI Palp: Yes Soft to palpation, No Tenderness to palpation present (GI) and No Guarding due to palpation present (GI) Percussion: Yes normal to percussion Objective Data Vital Signs Vital Signs: Vital Signs - 24 hr 03/23/22 13:55 03/23/22 14:00 03/23/22 14:04 Temperature 37.9 C H Pulse Rate 93 77 Respiratory Rate 20 Blood Pressure Pulse Oximetry Oxygen Delivery Oxygen Flow Rate 03/23/22 14:15 03/23/22 16:00 03/23/22 14:55 Temperature 38.1 C H 37.9 C H Pulse Rate 70 87 Respiratory Rate 20 26 H Blood Pressure 122/64 Pulse Oximetry 98 Oxygen Delivery Oxygen Flow Rate 03/23/22 16:00 03/23/22 16:00 03/23/22 18:00 Temperature Pulse Rate 86 91 Respiratory Rate Blood Pressure Pulse Oximetry 98 Oxygen Delivery Nasal Cannula Oxygen Flow Rate 3 03/23/22 19:47 03/23/22 20:06 03/23/22 20:07 Temperature 36.3 C L Pulse Rate 110 H 91 91 Respiratory Rate 32 H 22 H Blood Pressure 143/79 H Pulse Oximetry 92 95 Oxygen Delivery Nasal Cannula Oxygen Flow Rate 3 03/23/22 20:20 03/23/22 20:00 03/23/22 20:00 Temperature Pulse Rate 90 91 90 Respiratory Rate 30 H 30 H Blood Pressure Pulse Oximetry 95 Oxygen Delivery Nasal Cannula Oxygen Flow Rate 3 03/23/22 22:00 03/24/22 00:01 03/24/22 00:00 Temperature 38.4 C H Pulse Rate 91 94 90 Respiratory Rate 24 H Blood Pressure 108/66 Pulse Oximetry 98 Oxygen Delivery Oxygen Flow Rate 03/24/22 02:00 03/24/22 00:00 03/24/22 02:01 Temperature Pulse Rate 89 89 88 Respiratory Rate 24 H 32 H Blood Pressure Pulse Oximetry 98 Oxygen Delivery Nasal Cannula Oxygen Flow Rate 3 03/24/22 02:15 03/24/22 04:00 03/24/22 04:00 Temperature Pulse Rate 87 95 95 Respiratory Rate 28 H 28 H Blood Pressure Pulse Oximetry 98 Oxygen Delivery Nasal Cannula Oxygen Flow Rate 3 03/24/22 04:37 03/24/22 06:00 03/24/22 08:08 Temperature 37.7 C H Pulse Rate 97 99 100 Respiratory Rate 20 26 H Blood Pressure 131/65 Pulse Oximetry 99 Oxygen Delivery Oxygen Flow Rate 03/24/22 08:12 03/24/22 08:17 03/24/22 09:48 Temperature Pulse Rate 100 102 H Respiratory Rate 26 H 28 H Blood Pressure Pulse Oximetry 94 94 Oxygen Delivery Nasal Cannula Nasal Cannula Oxygen Flow Rate 3 3 03/24/22 08:00 03/24/22 08:00 03/24/22 10:00 Temperature 37.3 C Pulse Rate 90 101 H 100 Respiratory Rate 28 H Blood Pressure 112/65 Pulse Oximetry 95 Oxygen Delivery
[2022-03-24] MEDS: BISACODYL 10 MG SUPPOSITORY RECTAL (15:02)
[2022-03-24 17:39] LABS: Vancomycin Trough 15.8 ug/mL (10.0-20.0)
[2022-03-24 18:21] LABS: Glucose Point of Care 163 mg/dl (65-105)
[2022-03-24] MEDS: DEXTROSE 5% 1,000 ML 1,000 ML 100 ML IV CONT (21:02)
[2022-03-24 23:13] LABS: Glucose Point of Care 163 mg/dl (65-105)
[2022-03-25] VITALS (23 sets, daily range): BP systolic 106–135; BP diastolic 58–71; PULSE 88–98; RESP 16–36; TEMP 36.6–39; O2SAT 93–97
[2022-03-25] MEDS: ALBUTEROL SULFATE NEB 2.5 MG/3 ML INH 5 MG INHALATION ×4 (02:27→20:10)
[2022-03-25] MEDS: IPRATROPIUM BR 0.02% INH SOLN 0.5 MG/2.5 ML VIAL INHALATION ×4 (02:27→20:10)
[2022-03-25 05:05] LABS: Basophils Absolute Auto 0.1 K/mm3 (0.0-0.1); Basophils Percent Auto 0.4 % (0.2-1.2); Eosinophils Absolute Auto 0.1 K/mm3 (0-0.3); Eosinophils Percent Auto 0.3 % (0-4.4); Hematocrit 48.2 % (42.0-52.0); Hemoglobin 14.7 g/dL (14.0-18.0); Immature Granulocyte Absolute 0.09 K/mm3 (0.00-0.031); Immature Granulocyte Percent A 0.5 % (0-0.5); Lymphocytes Absolute Auto 1.01 K/mm3 (0.9-3.2); Lymphocytes Percent Auto 5.5 % (18.3-44.2); Mean Corpuscular HGB Conc 30.5 g/dl (32-36); Mean Corpuscular Hemoglobin 30.1 pg (26-34); Mean Corpuscular Volume 98.8 fl (80-100); Mean Platelet Volume 12.5 fl (7.4-10.4); Monocytes Absolute Auto 0.9 K/mm3 (0.1-0.6); Neutrophils Absolute Auto 16.1 K/mm3 (1.3-6.7); Neutrophils Percent Auto 88.3 % (45.5-73.1); Platelet Count Result 197 k/mm3 (150-375); Red Blood Count 4.88 M/mm3 (4.6-6.20); White Blood Count 18.3 K/mm3 (4.5-10.0)
[2022-03-25 05:17] LABS: Alanine Aminotransferase 15 U/L (6-50); Albumin Level 3.1 g/dL (3.5-5.1); Alkaline Phosphatase 73 U/L (38-126); Anion Gap 11 mmol/L (8-16); Aspartate Amino Transferase 55 U/L (17-59); Bilirubin,Total 1.8 mg/dL (0.2-1.3); Blood Urea Nitrogen 65 mg/dL (9-20); Calcium 7.8 mg/dL (8.4-10.2); Carbon Dioxide 22 mmol/L (22-30); Chloride 117 mmol/L (98-107); Estimated CRCL calculation 32 ml/min; Estimated Glomerular Filt Rate 28; Glucose 166 mg/dL (65-110); Magnesium 2.5 mg/dL (1.6-2.3); Phosphorus 5.3 mg/dL (2.5-4.5); Sodium 150 mmol/L (137-145)
[2022-03-25 06:01] LABS: Magnesium 2.5 mg/dL (1.6-2.3); Phosphorus 5.3 mg/dL (2.5-4.5)
[2022-03-25] MEDS: CARBIDOPA/LEVODOPA 25/100 MG TABLET 3 TABLET PO ×6 (06:06→20:55)
[2022-03-25] MEDS: DEXTROSE 5% 1,000 ML 1,000 ML 100 ML IV CONT ×2 (06:07→17:16)
--- NOTE | 2022-03-25 08:49 | PM.IMPN ---
Progress Note: A&P Assessment and Plan (1) Acute respiratory failure with hypoxia: Code(s): J96.01 - Acute respiratory failure with hypoxia Status: Acute Assessment and Plan: Likely due to aspiration pneumonia with severe sepsis requiring ICU admission. Extubated 03/19 and has been on 2-3L NC since extubation. CXR w/ penumonia. Antibiotics changed to imipenem and vancomycin late yesterday evening. Ordered chlamydia and mycoplasma pneumonia PCR for sputum. -Continue imipenem and vancomycin (2) Fever: Code(s): R50.9 - Fever, unspecified Status: Acute Assessment and Plan: Persistent. Antibiotics changed overnight. Will monitor to see if improvement over the next 24 hours. BCX remain negative. Sent repeat UA & UCX. -Tylenol PRN fever -Continue pneumonia treatment -Orered echo to rule out endocarditis -Resent blood cultures (3) Aspiration pneumonia: Code(s): J69.0 - Pneumonitis due to inhalation of food and vomit Status: Acute Assessment and Plan: Discussed dysphagia with today. says patient would not want feeding tube. (4) Severe sepsis: Code(s): A41.9 - Sepsis, unspecified organism; R65.20 - Severe sepsis without septic shock Status: Acute Assessment and Plan: Fever, tachycardia and known source of pneumonia. Currently hemodynamically stable and will proceed with workup and treatment as noted above. (5) NATALIO (acute kidney injury): Code(s): N17.9 - Acute kidney failure, unspecified Status: Acute Assessment and Plan: Likely due to severe sepsis and appears to be improve but with persistent hypernatremia, will consult Nephrology. Hopefully discontinuation of zosyn will help with NATALIO. Appears to be improving. -Appreciate recommendations from Nephrology -Renally dose all medications -Avoid nephrotoxic agents (6) Small bowel obstruction: Code(s): K56.609 - Unspecified intestinal obstruction, unspecified as to partial versus complete obstruction Status: Acute Assessment and Plan: S/P small bowel resection and umbilical hernia repair on 03/18/22. -Appreciate recommendations from General Surgery -Holding tube feeds due to ileus (7) Hypernatremia: Code(s): E87.0 - Hyperosmolality and hypernatremia Status: Acute Assessment and Plan: Improving. Nephrology consulted. Appreciate recommendations. (8) Dysphagia: Code(s): R13.10 - Dysphagia, unspecified Status: Acute Assessment and Plan: Tube feed held due to ileus. (9) Diet-controlled diabetes mellitus: Code(s): E11.9 - Type 2 diabetes mellitus without complications Status: Acute Assessment and Plan: Controlled. Continue POC glucose. Will monitor. (10) Parkinson's disease dementia: Code(s): G20 - Parkinson's disease; F02.80 - Dementia in other diseases classified elsewhere without behavioral disturbance Status: Acute Assessment and Plan: Continue carbidopa-levodopa. Holding clozapine for now and has been held since admission. No overt symptoms of clozapine withdrawal at this time. Stable. -Discontinued pramipexole per family request as it was not taken regularly at home (11) Ileus: Code(s): K56.7 - Ileus, unspecified Status: Acute Assessment and Plan: NGT with significant bilious output after being clamped overnight. -NGT to lower intermittent wall suction Additional Plan Heparin DVT prophylaxis. Subjective Date/time seen: 03/25/22 08:49 Patient denies any abdominal pain and nausea. Says he feels good. Patient and daughter at bedside and say patient would like to go to rehab after hospitalization. Nursing reports patient had a small bowel movement overnight. Review of Systems Gastrointestinal: Gastrointestinal: Denies abdominal pain and Denies nausea Exam Narrative: GENERAL: nahed KIDD
[2022-03-25] MEDS: PANTOPRAZOLE SODIUM IV 40 MG VIAL IV PUSH (09:45)
[2022-03-25] MEDS: HEPARIN SODIUM 5,000 UNITS/ML VIAL 5000 UNITS SUB-Q ×2 (09:47→20:55)
[2022-03-25 12:06] LABS: Glucose Point of Care 153 mg/dl (65-105)
--- NOTE | 2022-03-25 13:12 | P.PNNP_ITS ---
Progress Note: A&P Assessment and Plan (1) Acute kidney injury: Code(s): N17.9 - Acute kidney failure, unspecified Status: Acute Assessment and Plan: * multifactorial etiology: * relative hypotension/hemodynamic instability * sepsis/infection (pneumonia) * prerenal factors * concurrent use of HCTZ ([employer]) * insensible losses (fevers and NG output) * creatinine relatively stable (not worse but not better) * aside from sodium, no critical electrolytes * making urine at this time * renal ultrasound results noted * continue IVFs for now * follow trend of repeat labs and UOP (2) Hypernatremia: Code(s): E87.0 - Hyperosmolality and hypernatremia Status: Acute Assessment and Plan: * due to severe free water deficit * IVFs adjusted * once able to take enteral feeds, would start and titrate free water flushes * alternatively, may need to use TPN and will need to add free water to this * follow trend of sodium levels (3) Small bowel obstruction: Code(s): K56.609 - Unspecified intestinal obstruction, unspecified as to partial versus complete obstruction Status: Acute Assessment and Plan: * due to incarcerated umbical hernia * s/p exploratory laparotomy, small-bowel resection, and repair of incarcerated umbilical hernia * Surgery following (4) Pneumonia: Qualifiers: Laterality: bilateral Lung location: lower lobe of lung Pneumonia type: due to unspecified organism Qualified Code(s): J18.9 - Pneumonia, unspecified organism Code(s): J18.9 - Pneumonia, unspecified organism Status: Acute Assessment and Plan: * as noted by recent imaging * possibly complicated by aspiration * follow culture data * on antibiotics (5) Recurrent fever: Code(s): A68.9 - Relapsing fever, unspecified Status: Acute Assessment and Plan: * persists despite current therapy * repeat imaging needed (?) * consider Infectious Disease consultation * follow temperature curve (6) Parkinson's disease: Code(s): G20 - Parkinson's disease Status: Chronic Assessment and Plan: * back on home medications Will continue to follow. Subjective Date/time seen: 03/25/22 13:12 Continues to have fevers in association with an elevated WBC in the last 24 - 48 hours even with current antibiotic therapy; continues to have significant NG drainage as well; no acute distress noted in spite of these issues/findings. Exam Narrative: General: elderly male in NAD Heart: normal S1 and S2; no rub Lungs: coarse breath sounds Abdomen: soft, nontender, nondistended, + bowel sounds Extremities: no cyanosis or clubbing; no edema Skin: warm and dry Objective Data Vital Signs Vital Signs: Vital Signs Temp Pulse Resp BP Pulse Ox O2 Del Method O2 Flow Rate 03/25/22 12:00 96 Nasal Cannula 3 03/25/22 11:07 36.6 C 96 20 106/58 L 96 03/25/22 10:00 98 03/25/22 10:04 37.1 C 03/25/22 08:00 96 03/25/22 10:17 37.1 C 03/25/22 09:34 39.0 C H 03/25/22 08:00 93 Nasal Cannula 3 03/25/22 07:56 95 20 03/25/22 07:45 39.0 C H 94 16 129/65 93 03/25/22 07:46 93 22 H 03/25/22 06:00 93 03/25/22 04:00 95 Na
--- NOTE | 2022-03-25 13:12 | PM.PNNEP ---
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 ([employer]) insensible losses (fevers and NG output) creatinine relatively stable (not worse but not better) aside from sodium, no critical electrolytes making urine at this time renal ultrasound results noted continue IVFs for now follow trend of repeat labs and UOP (2) Hypernatremia: Code(s): E87.0 - Hyperosmolality and hypernatremia Status: Acute Assessment and Plan: due to severe free water deficit IVFs adjusted once able to take enteral feeds, would start and titrate free water flushes alternatively, may need to use TPN and will need to add free water to this follow trend of sodium levels (3) Small bowel obstruction: Code(s): K56.609 - Unspecified intestinal obstruction, unspecified as to partial versus complete obstruction Status: Acute Assessment and Plan: due to incarcerated umbical hernia s/p exploratory laparotomy, small-bowel resection, and repair of incarcerated umbilical hernia Surgery following (4) Pneumonia: Qualifiers: Laterality: bilateral Lung location: lower lobe of lung Pneumonia type: due to unspecified organism Qualified Code(s): J18.9 - Pneumonia, unspecified organism Code(s): J18.9 - Pneumonia, unspecified organism Status: Acute Assessment and Plan: as noted by recent imaging possibly complicated by aspiration follow culture data on antibiotics (5) Recurrent fever: Code(s): A68.9 - Relapsing fever, unspecified Status: Acute Assessment and Plan: persists despite current therapy repeat imaging needed (?) consider Infectious Disease consultation follow temperature curve (6) Parkinson's disease: Code(s): G20 - Parkinson's disease Status: Chronic Assessment and Plan: back on home medications Will continue to follow. Subjective Date/time seen: 03/25/22 13:12 Continues to have fevers in association with an elevated WBC in the last 24 - 48 hours even with current antibiotic therapy; continues to have significant NG drainage as well; no acute distress noted in spite of these issues/findings. Exam Narrative: General: elderly male in NAD Heart: normal S1 and S2; no rub Lungs: coarse breath sounds Abdomen: soft, nontender, nondistended, + bowel sounds Extremities: no cyanosis or clubbing; no edema Skin: warm and dry Objective Data Vital Signs Vital Signs: Vital Signs Temp Pulse Resp BP Pulse Ox O2 Del Method O2 Flow Rate 03/25/22 12:00 96 Nasal Cannula 3 03/25/22 11:07 36.6 C 96 20 106/58 L 96 03/25/22 10:00 98 03/25/22 10:04 37.1 C 03/25/22 08:00 96 03/25/22 10:17 37.1 C 03/25/22 09:34 39.0 C H 03/25/22 08:00 93 Nasal Cannula 3 03/25/22 07:56 95 20 03/25/22 07:45 39.0 C H 94 16 129/65 93 03/25/22 07:46 93 22 H 03/25/22 06:00 93 03/25/22 04:00 95 Nasal Cannula 3 03/25/22 04:00 95 03/25/22 04:00 36.6 C 95 22 H 106/71 95 03/25/22 02:37 92 22 H 03/25/22 02:00 90 03/25/22 02:28 91 24 H 03/25/22 00:00 95 Nasal Cannula 3 03/25/22 00:00 91 03/24/22 23:30 36.9 C 92 22 H 112/69 95 03/24/22 22:00 94 03/24/22 20:00 98 Nasal Cannula 3 03/24/22 20:00 99 03/24/22 20:00 37.2 C 96 22 H 115/59 L 98 03/24/22 20:03 95 20 03/24/22 19:47 93 Nasal Cannula 3 03/24/22 19:46 96 20 03/24/22 18:00 96 03/24/22 17:56 38.2 C H Intake/Output Intake/Output: Intake & Output 03/22/22 03/23/2203/24
--- NOTE | 2022-03-25 13:39 | PM.PNGS ---
Progress Note: A&P Assessment and Plan (1) Small bowel obstruction: Code(s): K56.609 - Unspecified intestinal obstruction, unspecified as to partial versus complete obstruction Status: Acute Assessment and Plan: Bowels moving and abdominal exam still seems benign. NG output has been high but abdominal xray shows nonobstructive pattern. WBC increasing and fevers continue. Will get CT chest/abd/pelvis today. Hold tube feeds until no abdominal source of infection is verified. Might need to consider TPN if unable to start diet soon. (2) Status post hernia repair: Code(s): Z98.890 - Other specified postprocedural states; Z87.19 - Personal history of other diseases of the digestive system Status: Acute (3) Ileus: Code(s): K56.7 - Ileus, unspecified Status: Acute (4) Fever: Code(s): R50.9 - Fever, unspecified Status: Acute (5) Pneumonia: Qualifiers: Laterality: bilateral Lung location: lower lobe of lung Pneumonia type: due to unspecified organism Qualified Code(s): J18.9 - Pneumonia, unspecified organism Code(s): J18.9 - Pneumonia, unspecified organism Status: Acute Subjective Subjective Date/Time Seen: 03/25/22 13:39 Interval history: Still having fevers. +BM today. No other complaints. Exam GI: Inspection: non-distended, incision (intact with jasmyn) and other (no redness or drainage from incision) GI Palp: Yes Soft to palpation, No Tenderness to palpation present (GI), No Guarding due to palpation present (GI), No Palpable mass present and No Rebound tenderness present Auscultation: normal bowel sounds Objective Data Vital Signs Vital Signs: Vital Signs - 24 hr 03/24/22 14:15 03/24/22 14:25 03/24/22 14:00 Temperature Pulse Rate 106 H 107 H 108 H Respiratory Rate 28 H 28 H Blood Pressure Pulse Oximetry Oxygen Delivery Oxygen Flow Rate 03/24/22 16:00 03/24/22 16:00 03/24/22 16:00 Temperature 36.5 C Pulse Rate 107 H 106 H Respiratory Rate 16 Blood Pressure 122/74 Pulse Oximetry 95 95 Oxygen Delivery Nasal Cannula Oxygen Flow Rate 3 03/24/22 17:56 03/24/22 18:00 03/24/22 19:46 Temperature 38.2 C H Pulse Rate 96 96 Respiratory Rate 20 Blood Pressure Pulse Oximetry Oxygen Delivery Oxygen Flow Rate 03/24/22 19:47 03/24/22 20:03 03/24/22 20:00 Temperature 37.2 C Pulse Rate 95 96 Respiratory Rate 20 22 H Blood Pressure 115/59 L Pulse Oximetry 93 98 Oxygen Delivery Nasal Cannula Oxygen Flow Rate 3 03/24/22 20:00 03/24/22 20:00 03/24/22 22:00 Temperature Pulse Rate 99 94 Respiratory Rate Blood Pressure Pulse Oximetry 98 Oxygen Delivery Nasal Cannula Oxygen Flow Rate 3 03/24/22 23:30 03/25/22 00:00 03/25/22 00:00 Temperature 36.9 C Pulse Rate 92 91 Respiratory Rate 22 H Blood Pressure 112/69 Pulse Oximetry 95 95 Oxygen Delivery Nasal Cannula Oxygen Flow Rate 3 03/25/22 02:28 03/25/22 02:00 03/25/22 02:37 Temperature Pulse Rate 91 90 92 Respiratory Rate 24 H 22 H Blood Pressure Pulse Oximetry Oxygen Delivery Oxygen Flow Rate 03/25/22 04:00 03/25/22 04:00 03/25/22 04:00 Temperature 36.6 C Pulse Rate 95 95 Respiratory Rate 22 H Blood Pressure 106/71 Pulse Oximetry 95 95 Oxygen Delivery Nasal Cannula Oxygen Flow Rate 3 03/25/22 06:00 03/25/22 07:46 03/25/22 07:45 Temperature 39.0 C H Pulse Rate 93 93 94 Respiratory Rate 22 H 16 Blood Pressure 129/65 Pulse Oximetry 93 Oxygen Delivery Oxygen Flow Rate 03/25/22 07:56 03/25/22 08:00 03/25/22 09:34 Temperature 39.0 C H Pulse Rate 95 Respiratory Rate 20 Blood Pressure Pulse Oximetry 93 Oxygen Delivery Nasal Cannula Oxygen Flow Rate 3 03/25/22 10:17 03/25/22 08:00 03/25/22 10:04 Temperature 37.1 C 37.1 C Pulse Rate 96 Respiratory Rate Blood Pressure Puls
[2022-03-25 18:00] LABS: Glucose Point of Care 155 mg/dl (65-105)
--- NOTE | 2022-03-25 21:42 | PC.NURSE ---
This patient, Maximiliano Brown, was transferred to [facility] on 03/25/22 at 2142. Personal belongings sent with patient. Report given to Nilsa COFFEY. Appropriate documentation sent with patient.
[2022-03-25 23:53] LABS: Glucose Point of Care 170 mg/dl (65-105)
[2022-03-26] VITALS (20 sets, daily range): BP systolic 98–114; BP diastolic 56–67; PULSE 78–97; RESP 16–22; TEMP 36–38.3; O2SAT 94–100
[2022-03-26] MEDS: ACETAMINOPHEN ELIXIR 325 MG/10.15 ML UDC 650 MG FEED TUBE (01:16)
[2022-03-26] MEDS: ALBUTEROL SULFATE NEB 2.5 MG/3 ML INH 5 MG INHALATION ×4 (02:48→20:32)
[2022-03-26] MEDS: IPRATROPIUM BR 0.02% INH SOLN 0.5 MG/2.5 ML VIAL INHALATION ×4 (02:48→20:32)
[2022-03-26 04:53] LABS: Basophils Absolute Auto 0.1 K/mm3 (0.0-0.1); Basophils Percent Auto 0.4 % (0.2-1.2); Eosinophils Absolute Auto 0.1 K/mm3 (0-0.3); Eosinophils Percent Auto 0.4 % (0-4.4); Hematocrit 44.8 % (42.0-52.0); Hemoglobin 14.3 g/dL (14.0-18.0); Immature Granulocyte Absolute 0.07 K/mm3 (0.00-0.031); Immature Granulocyte Percent A 0.5 % (0-0.5); Lymphocytes Percent Auto 5.8 % (18.3-44.2); Mean Corpuscular HGB Conc 31.9 g/dl (32-36); Mean Corpuscular Hemoglobin 30.8 pg (26-34); Mean Corpuscular Volume 96.3 fl (80-100); Mean Platelet Volume 12.9 fl (7.4-10.4); Monocytes Absolute Auto 0.7 K/mm3 (0.1-0.6); Monocytes Percent Auto 5.3 % (2.6-8.5); Neutrophils Absolute Auto 12.1 K/mm3 (1.3-6.7); Neutrophils Percent Auto 87.6 % (45.5-73.1); Platelet Count Result 185 k/mm3 (150-375); Red Blood Count 4.65 M/mm3 (4.6-6.20); Red Cell Distribution Width 13.7 % (11.5-14.5); White Blood Count 13.8 K/mm3 (4.5-10.0)
[2022-03-26 05:04] LABS: Alanine Aminotransferase 19 U/L (6-50); Albumin Level 3.1 g/dL (3.5-5.1); Alkaline Phosphatase 80 U/L (38-126); Anion Gap 8 mmol/L (8-16); Aspartate Amino Transferase 66 U/L (17-59); Blood Urea Nitrogen 68 mg/dL (9-20); Calcium 7.6 mg/dL (8.4-10.2); Carbon Dioxide 23 mmol/L (22-30); Chloride 118 mmol/L (98-107); Estimated CRCL calculation 33 ml/min; Estimated Glomerular Filt Rate 30; Glucose 167 mg/dL (65-110); Magnesium 2.6 mg/dL (1.6-2.3); Phosphorus 5.3 mg/dL (2.5-4.5); Potassium 3.3 mmol/L (3.4-5.0); Sodium 149 mmol/L (137-145)
[2022-03-26] MEDS: DEXTROSE 5% 1,000 ML 1,000 ML 100 ML IV CONT ×2 (05:41→16:49)
[2022-03-26] MEDS: CARBIDOPA/LEVODOPA 25/100 MG TABLET 3 TABLET PO ×6 (05:42→20:45)
[2022-03-26 06:25] LABS: Glucose Point of Care 171 mg/dl (65-105)
--- NOTE | 2022-03-26 07:32 | PM.IMPN ---
Progress Note: A&P Assessment and Plan (1) Acute respiratory failure with hypoxia: Code(s): J96.01 - Acute respiratory failure with hypoxia Status: Acute Assessment and Plan: Likely due to aspiration pneumonia with severe sepsis requiring ICU admission. Extubated 03/19 and has been on 2-3L NC since extubation. CXR w/ penumonia. Antibiotics changed to imipenem and vancomycin late yesterday evening. Ordered chlamydia and mycoplasma pneumonia PCR for sputum. -Continue imipenem and vancomycin -Overall appears to be clinically improving. (2) Fever: Code(s): R50.9 - Fever, unspecified Status: Acute Assessment and Plan: Persistent. Antibiotics changed overnight. Will monitor to see if improvement over the next 24 hours. BCX remain negative. Repeat UCX & BCX remain negative. -Tylenol PRN fever -Continue pneumonia treatment -Order echo to rule out endocarditis - hopefully will be completed Saturday -Resent blood cultures (3) Aspiration pneumonia: Code(s): J69.0 - Pneumonitis due to inhalation of food and vomit Status: Acute Assessment and Plan: Discussed dysphagia with today. says patient would not want feeding tube. (4) Severe sepsis: Code(s): A41.9 - Sepsis, unspecified organism; R65.20 - Severe sepsis without septic shock Status: Acute Assessment and Plan: Fever, tachycardia and known source of pneumonia. Currently hemodynamically stable and will proceed with workup and treatment as noted above. (5) NATALIO (acute kidney injury): Code(s): N17.9 - Acute kidney failure, unspecified Status: Acute Assessment and Plan: Likely due to severe sepsis and appears to be improve but with persistent hypernatremia, will consult Nephrology. Hopefully discontinuation of zosyn will help with NATALIO. Appears to be improving. -Appreciate recommendations from Nephrology -Renally dose all medications -Avoid nephrotoxic agents (6) Small bowel obstruction: Code(s): K56.609 - Unspecified intestinal obstruction, unspecified as to partial versus complete obstruction Status: Acute Assessment and Plan: S/P small bowel resection and umbilical hernia repair on 03/18/22. -Appreciate recommendations from General Surgery -Tube feeds per Surgery (7) Hypernatremia: Code(s): E87.0 - Hyperosmolality and hypernatremia Status: Acute Assessment and Plan: Improving. Nephrology consulted. Appreciate recommendations. (8) Dysphagia: Code(s): R13.10 - Dysphagia, unspecified Status: Acute Assessment and Plan: Tube feed held due to ileus. (9) Diet-controlled diabetes mellitus: Code(s): E11.9 - Type 2 diabetes mellitus without complications Status: Acute Assessment and Plan: Controlled. Continue POC glucose. Will monitor. (10) Parkinson's disease dementia: Code(s): G20 - Parkinson's disease; F02.80 - Dementia in other diseases classified elsewhere without behavioral disturbance Status: Acute Assessment and Plan: Continue carbidopa-levodopa. Holding clozapine for now and has been held since admission. No overt symptoms of clozapine withdrawal at this time. Stable. -Discontinued pramipexole per family request as it was not taken regularly at home (11) Ileus: Code(s): K56.7 - Ileus, unspecified Status: Acute Assessment and Plan: NGT with significant bilious output after being clamped overnight. -NGT to lower intermittent wall suction Subjective Date/time seen: 03/26/22 07:32 Patient is having some left arm weakness. Left handed. Says this has started since being hospitalized. No history of trauma. Had right shoulder injury in the past. Review of Systems Gastrointestinal: Gastrointestinal: Denies nausea and Denies vomiting Exam Narrative: GENERAL: NAD, cooperative, lying in bed
[2022-03-26] MEDS: POTASSIUM CHLORIDE INJ 40 MEQ in SODIUM CHLORIDE 0.9% IV 500 ML 130 MEQ IVPB (08:06)
[2022-03-26] MEDS: PANTOPRAZOLE SODIUM IV 40 MG VIAL IV PUSH (08:11)
[2022-03-26] MEDS: MINERAL OIL 30 ML UDC FEED TUBE (10:07)
[2022-03-26] MEDS: BISACODYL 10 MG SUPPOSITORY RECTAL (10:08)
--- NOTE | 2022-03-26 10:29 | PM.PNGS ---
Progress Note: A&P Assessment and Plan (1) Small bowel obstruction: Code(s): K56.609 - Unspecified intestinal obstruction, unspecified as to partial versus complete obstruction Status: Acute Assessment and Plan: CT reviewed. Patient has fecal impaction. Will give mineral oil per NG tube and clamp. Dulcolax suppository again today. Could perform enemas if needed to help disimpact. Will try to resume tube feedings today at a slow rate. (2) Fecal impaction: Code(s): K56.41 - Fecal impaction Status: Acute (3) Status post hernia repair: Code(s): Z98.890 - Other specified postprocedural states; Z87.19 - Personal history of other diseases of the digestive system Status: Acute (4) Fever: Code(s): R50.9 - Fever, unspecified Status: Acute (5) Pneumonia: Qualifiers: Laterality: bilateral Lung location: lower lobe of lung Pneumonia type: due to unspecified organism Qualified Code(s): J18.9 - Pneumonia, unspecified organism Code(s): J18.9 - Pneumonia, unspecified organism Status: Acute Subjective Subjective Date/Time Seen: 03/26/22 10:29 Interval history: WBC improved. Patient did have 1 BM yesterday before his CT. No abdominal source of infection identified on CT. Still NPO. Exam GI: Inspection: non-distended and incision ( Intact with jasmyn) GI Palp: Yes Soft to palpation, No Tenderness to palpation present (GI) and No Guarding due to palpation present (GI) Objective Data Vital Signs Vital Signs: Vital Signs - 24 hr 03/25/22 11:07 03/25/22 12:00 03/25/22 12:00 Temperature 36.6 C Pulse Rate 96 92 Respiratory Rate 20 Blood Pressure 106/58 L Pulse Oximetry 96 96 Oxygen Delivery Nasal Cannula Oxygen Flow Rate 3 03/25/22 13:50 03/25/22 14:00 03/25/22 16:00 Temperature 36.8 C Pulse Rate 94 97 94 Respiratory Rate 20 20 36 H Blood Pressure 135/67 Pulse Oximetry 97 Oxygen Delivery Oxygen Flow Rate 03/25/22 16:00 03/25/22 16:00 03/25/22 20:00 Temperature 36.7 C Pulse Rate 88 90 Respiratory Rate 22 H Blood Pressure 114/67 Pulse Oximetry 97 97 Oxygen Delivery Nasal Cannula Oxygen Flow Rate 3 03/25/22 20:35 03/25/22 20:10 03/25/22 20:30 Temperature Pulse Rate 90 90 90 Respiratory Rate 18 20 20 Blood Pressure Pulse Oximetry 95 Oxygen Delivery Nasal Cannula Oxygen Flow Rate 3 03/25/22 20:00 03/25/22 20:00 03/26/22 00:00 Temperature Pulse Rate 92 89 Respiratory Rate Blood Pressure Pulse Oximetry 97 Oxygen Delivery Nasal Cannula Oxygen Flow Rate 3 03/26/22 01:02 03/26/22 01:16 03/26/22 02:16 Temperature 38.3 C H 38.3 C H 36.9 C Pulse Rate 88 Respiratory Rate 18 Blood Pressure 109/58 L Pulse Oximetry 97 Oxygen Delivery Oxygen Flow Rate 03/26/22 02:40 03/26/22 02:40 03/26/22 02:50 Temperature Pulse Rate 88 88 88 Respiratory Rate 22 H 22 H 22 H Blood Pressure Pulse Oximetry 96 Oxygen Delivery Nasal Cannula Oxygen Flow Rate 2 03/26/22 04:00 03/26/22 06:37 03/26/22 08:37 Temperature 37.6 C Pulse Rate 84 86 87 Respiratory Rate 16 22 H Blood Pressure 109/67 Pulse Oximetry 94 96 Oxygen Delivery Nasal Cannula Oxygen Flow Rate 2 03/26/22 08:30 03/26/22 08:38 03/26/22 08:00 Temperature Pulse Rate 97 91 81 Respiratory Rate 22 H 22 H Blood Pressure Pulse Oximetry Oxygen Delivery Oxygen Flow Rate 03/26/22 08:00 Temperature Pulse Rate Respiratory Rate Blood Pressure Pulse Oximetry 95 Oxygen Delivery Nasal Cannula Oxygen Flow Rate 2 Intake/Output Intake/Output: Intake & Output 03/23/22 03/24/22 03/25/22 03/26/22 23:59 23:59 23:59 23:59 Intake Total 2651 2900 2500 1400 Output Total 5150 3400 2250 1450 Balance -2499 -500 250 -50 Meds/Results Medications: Active Medications Generic Name Dose Route Start Last Admin Trade Name Freq PRN Re
[2022-03-26 11:32] LABS: Glucose Point of Care 177 mg/dl (65-105)
--- NOTE | 2022-03-26 12:25 | P.PNNP_ITS ---
Progress Note: A&P Assessment and Plan (1) Acute kidney injury: Code(s): N17.9 - Acute kidney failure, unspecified Status: Acute Assessment and Plan: * multifactorial etiology: * relative hypotension/hemodynamic instability * sepsis/infection (pneumonia) * prerenal factors * concurrent use of HCTZ ([employer]) * insensible losses (fevers and NG output) * creatinine relatively stable (not worse but not better) * aside from sodium, no critical electrolytes * making urine at this time * renal ultrasound results noted * continue IVFs for now * follow trend of repeat labs and UOP (2) Hypernatremia: Code(s): E87.0 - Hyperosmolality and hypernatremia Status: Acute Assessment and Plan: * due to severe free water deficit * IVFs adjusted * once able to take enteral feeds, would start and titrate free water flushes * alternatively, may need to use TPN and will need to add free water to this * follow trend of sodium levels (3) Small bowel obstruction: Code(s): K56.609 - Unspecified intestinal obstruction, unspecified as to partial versus complete obstruction Status: Acute Assessment and Plan: * due to incarcerated umbical hernia * s/p exploratory laparotomy, small-bowel resection, and repair of incarcerated umbilical hernia * Surgery following (4) Pneumonia: Qualifiers: Laterality: bilateral Lung location: lower lobe of lung Pneumonia type: due to unspecified organism Qualified Code(s): J18.9 - Pneumonia, unspecified organism Code(s): J18.9 - Pneumonia, unspecified organism Status: Acute Assessment and Plan: * as noted by recent imaging * possibly complicated by aspiration * follow culture data * on antibiotics (5) Recurrent fever: Code(s): A68.9 - Relapsing fever, unspecified Status: Acute Assessment and Plan: * persists despite current therapy * repeat imaging needed (?) * consider Infectious Disease consultation * follow temperature curve (6) Parkinson's disease: Code(s): G20 - Parkinson's disease Status: Chronic Assessment and Plan: * back on home medications Will continue to follow. Subjective Date/time seen: 03/26/22 12:25 Sodium slowly improving with relative stability of renal function along with s table urine output; still with low grade fevers and repeat CT scan results noted. Exam Narrative: General: elderly male in NAD Heart: normal S1 and S2; no rub Lungs: coarse breath sounds Abdomen: soft, nontender, nondistended, + bowel sounds Extremities: no cyanosis or clubbing; no edema Skin: warm and dry Objective Data Vital Signs Vital Signs: Vital Signs Temp Pulse Resp BP Pulse Ox O2 Del Method O2 Flow Rate 03/26/22 12:00 37.3 C 78 20 112/60 97 03/26/22 12:00 83 03/26/22 08:00 36.9 C 80 20 110/65 96 03/26/22 08:00 95 Nasal Cannula 2 03/26/22 08:00 81 03/26/22 08:38 91 22 H 03/26/22 08:30 97 22 H 03/26/22 08:37 87 22 H 96 Nasal Cannula 2 03/26/22 06:37 37.6 C 86 16 109/67 94 03/26/22 04:00 84 03/26/22 02:50 88 22 H 03/26/22 02:40 88 22 H 03/26/22 02:40 88 22 H 96 Nasal Cannula 2 03/26/22 02:16
--- NOTE | 2022-03-26 12:25 | PM.PNNEP ---
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) insensible losses (fevers and NG output) creatinine relatively stable (not worse but not better) aside from sodium, no critical electrolytes making urine at this time renal ultrasound results noted continue IVFs for now follow trend of repeat labs and UOP (2) Hypernatremia: Code(s): E87.0 - Hyperosmolality and hypernatremia Status: Acute Assessment and Plan: due to severe free water deficit IVFs adjusted once able to take enteral feeds, would start and titrate free water flushes alternatively, may need to use TPN and will need to add free water to this follow trend of sodium levels (3) Small bowel obstruction: Code(s): K56.609 - Unspecified intestinal obstruction, unspecified as to partial versus complete obstruction Status: Acute Assessment and Plan: due to incarcerated umbical hernia s/p exploratory laparotomy, small-bowel resection, and repair of incarcerated umbilical hernia Surgery following (4) Pneumonia: Qualifiers: Laterality: bilateral Lung location: lower lobe of lung Pneumonia type: due to unspecified organism Qualified Code(s): J18.9 - Pneumonia, unspecified organism Code(s): J18.9 - Pneumonia, unspecified organism Status: Acute Assessment and Plan: as noted by recent imaging possibly complicated by aspiration follow culture data on antibiotics (5) Recurrent fever: Code(s): A68.9 - Relapsing fever, unspecified Status: Acute Assessment and Plan: persists despite current therapy repeat imaging needed (?) consider Infectious Disease consultation follow temperature curve (6) Parkinson's disease: Code(s): G20 - Parkinson's disease Status: Chronic Assessment and Plan: back on home medications Will continue to follow. Subjective Date/time seen: 03/26/22 12:25 Sodium slowly improving with relative stability of renal function along with stable urine output; still with low grade fevers and repeat CT scan results noted. Exam Narrative: General: elderly male in NAD Heart: normal S1 and S2; no rub Lungs: coarse breath sounds Abdomen: soft, nontender, nondistended, + bowel sounds Extremities: no cyanosis or clubbing; no edema Skin: warm and dry Objective Data Vital Signs Vital Signs: Vital Signs Temp Pulse Resp BP Pulse Ox O2 Del Method O2 Flow Rate 03/26/22 12:00 37.3 C 78 20 112/60 97 03/26/22 12:00 83 03/26/22 08:00 36.9 C 80 20 110/65 96 03/26/22 08:00 95 Nasal Cannula 2 03/26/22 08:00 81 03/26/22 08:38 91 22 H 03/26/22 08:30 97 22 H 03/26/22 08:37 87 22 H 96 Nasal Cannula 2 03/26/22 06:37 37.6 C 86 16 109/67 94 03/26/22 04:00 84 03/26/22 02:50 88 22 H 03/26/22 02:40 88 22 H 03/26/22 02:40 88 22 H 96 Nasal Cannula 2 03/26/22 02:16 36.9 C 03/26/22 01:16 38.3 C H 03/26/22 01:02 38.3 C H 88 18 109/58 L 97 03/26/22 00:00 89 03/25/22 20:00 97 Nasal Cannula 3 03/25/22 20:00 92 03/25/22 20:30 90 20 03/25/22 20:10 90 20 03/25/22 20:35 90 18 95 Nasal Cannula 3 03/25/22 20:00 36.7 C 90 22 H 114/67 97 03/25/22 16:00 97 Nasal Cannula 3 03/25/22 16:00 88 03/25/22 16:00 36.8 C 94 36 H 135/67 97 03/25/22 14:00 97 20 03/25/22 13:50 94 20 Intake/Output Intake/Output: Intake & Output 03/23/22 03/24/22 03/25/22 03/26/22 23:59 23:59 23:59 23:59 Intake Total 2651 2900 2500 1400 Output Total 5150 3
[2022-03-26 16:39] LABS: Glucose Point of Care 173 mg/dl (65-105)
[2022-03-26] MEDS: HEPARIN SODIUM 5,000 UNITS/ML VIAL 5000 UNITS SUB-Q (20:45)
[2022-03-27] VITALS (19 sets, daily range): BP systolic 98–110; BP diastolic 58–67; PULSE 76–97; RESP 18–22; TEMP 35.7–37.3; O2SAT 91–100; BMI 11.0
--- NOTE | 2022-03-27 | ECHO_ITS ---
Patient Info Name: Maximiliano Brown Age: 72 years : 1950 Gender: Male Ht: 74 in Wt: 191 lbs BSA: 2.13 m2 HR: 96 bpm BP: 110 / 67 mmHg Heart Rhythm: Sinus Arrhythmia Technical Quality: Fair Exam Date: 03/27/2022 8:20 AM Exam Location: [facility] Card Pulmonary Patient Status: Inpatient Admit Date: 03/16/2022 Staff Ordering Physician: Zeny Spencer MD Big Data Platform Architect: Katarzyna Cantu RDCS Attending Provider: Leon Pickens MD Referring Physician: Johanna CHINO; Exam Type: CA echo dop color flow w con Study Info Indications - PERSISTANT FEVER WITHOUT SOURCE Complete two-dimensional, color flow and Doppler transthoracic echocardiogram is performed with contrast to opacify the left ventricle and to improve the deliniation of the left ventricle endocardial borders. Contrast/Agitated Saline Contrast/Ag. Saline: Definity Amount: 3.00 ml Administered By: Katarzyna Cantu RDCS Existing IV Access: Yes IV Access Condition: patent with no signs of infiltration Summary 1. Normal LV size, mild LVH, hyperdynamic LV systolic function, ejection fraction more than 70%. Grade 1 diastolic dysfunction. Normal mitral valve structure, no significant MR. Normal aortic valve structure, no hemodynamically significant stenosis. Trace TR, moderate pulmonary hypertension, RVSP 48 mmHg. Left Ventricle Left ventricular chamber dimension is normal. Left ventricular systolic function is hyperdynamic, estimated at >70%. There is mildly increased left ventricular wall thickness. The left ventricular diastolic function is grade I diastolic dysfunction. Right Ventricle Right ventricular chamber dimension is normal. Right ventricular systolic function is normal. Left Atria Left atrial chamber dimension is normal. Right Atria Right atrial chamber dimension is normal. Aortic Valve The aortic valve is normal. There is no aortic valve stenosis. Pulmonic Valve The pulmonic valve is normal. Mitral Valve The mitral valve has normal leaflets. There is no mitral valve regurgitation. Tricuspid Valve The tricuspid valve leaflets are normal. There is trace tricuspid valve regurgitation. Moderate pulmonary hypertension, estimated pulmonary arterial systolic pressure is 48 mmHg. Pericardium/Pleural The pericardium appears epicardial fat pad. Inferior Vena Cava Normal inferior vena cava with >50% collapse upon inspiration consistent with normal right atrial pressure, 10 mmHg. Aorta The aortic root size at the sinus of Valsalva is normal. Left Ventricular Outflow Tract Name Value Normal LVOT 2D LVOT Diameter 2.06 cm LVOT Doppler LVOT Peak Gradient 3 mmHg LVOT Mean Gradient 1 mmHg LVOT VTI 13.19 cm LVOT VTI/AV VTI Ratio 0.73 LVOT Stroke Volume 44.13 ml LVOT CO 3.80 l/min LVOT CI 1.78 L/min/m2 Pulmonic Valve
[2022-03-27 00:27] LABS: Glucose Point of Care 166 mg/dl (65-105)
[2022-03-27] MEDS: ALBUTEROL SULFATE NEB 2.5 MG/3 ML INH 5 MG INHALATION ×4 (02:05→19:50)
[2022-03-27] MEDS: IPRATROPIUM BR 0.02% INH SOLN 0.5 MG/2.5 ML VIAL INHALATION ×4 (02:05→19:50)
[2022-03-27] MEDS: DEXTROSE 5% 1,000 ML 1,000 ML 100 ML IV CONT ×2 (02:49→14:41)
[2022-03-27] MEDS: CARBIDOPA/LEVODOPA 25/100 MG TABLET 3 TABLET PO (05:44)
--- NOTE | 2022-03-27 05:45 | PC.NURSE ---
clamping ngt for 1 hour after crushing sinemet per ngt.
[2022-03-27 05:55] LABS: Glucose Point of Care 178 mg/dl (65-105)
[2022-03-27 06:07] LABS: Alanine Aminotransferase 34 U/L (6-50); Albumin Level 2.9 g/dL (3.5-5.1); Alkaline Phosphatase 83 U/L (38-126); Anion Gap 9 mmol/L (8-16); Aspartate Amino Transferase 50 U/L (17-59); Blood Urea Nitrogen 63 mg/dL (9-20); Calcium 7.8 mg/dL (8.4-10.2); Carbon Dioxide 22 mmol/L (22-30); Chloride 115 mmol/L (98-107); Estimated CRCL calculation 40 ml/min; Estimated Glomerular Filt Rate 37; Glucose 178 mg/dL (65-110); Magnesium 2.5 mg/dL (1.6-2.3); Phosphorus 4.5 mg/dL (2.5-4.5); Potassium 3.5 mmol/L (3.4-5.0); Sodium 146 mmol/L (137-145)
--- NOTE | 2022-03-27 07:28 | PM.IMPN ---
Progress Note: A&P Assessment and Plan (1) Acute respiratory failure with hypoxia: Code(s): J96.01 - Acute respiratory failure with hypoxia Status: Acute Assessment and Plan: Likely due to aspiration pneumonia with severe sepsis requiring ICU admission. Extubated 03/19 and has been on 2-3L NC since extubation. CXR w/ penumonia. Antibiotics changed to imipenem and vancomycin late yesterday evening. Ordered chlamydia and mycoplasma pneumonia PCR for sputum. Appears to be doing much better overall. Prior to imipenem was on zosyn and vancomycin. -Continue imipenem and vancomycin (2) Fever: Code(s): R50.9 - Fever, unspecified Status: Acute Assessment and Plan: BCX & UCX with no growth. Patient has been afebrile for over 24 hours. TTE with no valve abnormalities. Will continue to monitor. -Tylenol PRN fever -Continue pneumonia treatment (3) Aspiration pneumonia: Code(s): J69.0 - Pneumonitis due to inhalation of food and vomit Status: Acute Assessment and Plan: Discussed dysphagia with today. says patient would not want feeding tube. (4) Severe sepsis: Code(s): A41.9 - Sepsis, unspecified organism; R65.20 - Severe sepsis without septic shock Status: Acute Assessment and Plan: Resolved. (5) NATALIO (acute kidney injury): Code(s): N17.9 - Acute kidney failure, unspecified Status: Acute Assessment and Plan: Likely due to severe sepsis and appears to be improve but with persistent hypernatremia, will consult Nephrology. Hopefully discontinuation of zosyn will help with NATALIO. Appears to be improving. -Appreciate recommendations from Nephrology -Renally dose all medications -Avoid nephrotoxic agents (6) Small bowel obstruction: Code(s): K56.609 - Unspecified intestinal obstruction, unspecified as to partial versus complete obstruction Status: Acute Assessment and Plan: S/P small bowel resection and umbilical hernia repair on 03/18/22. -Appreciate recommendations from General Surgery -Tube feeds per Surgery (7) Hypernatremia: Code(s): E87.0 - Hyperosmolality and hypernatremia Status: Acute Assessment and Plan: Improving. Nephrology consulted. Appreciate recommendations. (8) Dysphagia: Code(s): R13.10 - Dysphagia, unspecified Status: Acute Assessment and Plan: Tube feeds. (9) Diet-controlled diabetes mellitus: Code(s): E11.9 - Type 2 diabetes mellitus without complications Status: Acute Assessment and Plan: Controlled. Continue POC glucose. Will monitor. (10) Parkinson's disease dementia: Code(s): G20 - Parkinson's disease; F02.80 - Dementia in other diseases classified elsewhere without behavioral disturbance Status: Acute Assessment and Plan: Continue carbidopa-levodopa. Holding clozapine for now and has been held since admission. No overt symptoms of clozapine withdrawal at this time. Stable. -Discontinued pramipexole per family request as it was not taken regularly at home (11) Ileus: Code(s): K56.7 - Ileus, unspecified Status: Acute Assessment and Plan: -NGT to lower intermittent wall suction Additional Plan Heparin DVT prophylaxis. Subjective Date/time seen: 03/27/22 07:28 Improving. Patient is sitting up with at bedside. reports TF held due to high residuals yesterday. Patient says he feels good and has no questions. Review of Systems Respiratory: Respiratory: Reports dyspnea Exam Narrative: GENERAL: NAD, cooperative, lying in bed HEENT: Normocephalic, atraumatic, anicteric, nares clear, oropharynx moist and clear NECK: Supple CV: Normal S1, S2, RRR, No MRG RESP: Improved air movement, no wheezes or rhonchi. Abdomen:soft NT, ND, + improved BS, NGT w/ bilious output EXTREMITIES: Warm and well perfuse
[2022-03-27 07:43] LABS: Basophils Absolute Auto 0.1 K/mm3 (0.0-0.1); Basophils Percent Auto 0.4 % (0.2-1.2); Eosinophils Absolute Auto 0.1 K/mm3 (0-0.3); Eosinophils Percent Auto 0.7 % (0-4.4); Hematocrit 44.3 % (42.0-52.0); Hemoglobin 13.7 g/dL (14.0-18.0); Immature Granulocyte Absolute 0.06 K/mm3 (0.00-0.031); Immature Granulocyte Percent A 0.5 % (0-0.5); Immature Platelet Fraction Pct 13.3 % (0.9-11.2); Lymphocytes Absolute Auto 0.61 K/mm3 (0.9-3.2); Lymphocytes Percent Auto 4.8 % (18.3-44.2); Mean Corpuscular HGB Conc 30.9 g/dl (32-36); Mean Corpuscular Volume 97.1 fl (80-100); Mean Platelet Volume 13.6 fl (7.4-10.4); Monocytes Absolute Auto 0.7 K/mm3 (0.1-0.6); Monocytes Percent Auto 5.2 % (2.6-8.5); Neutrophils Absolute Auto 11.2 K/mm3 (1.3-6.7); Neutrophils Percent Auto 88.4 % (45.5-73.1); Platelet Count Result 216 k/mm3 (150-375); Red Blood Count 4.56 M/mm3 (4.6-6.20); Red Cell Distribution Width 13.6 % (11.5-14.5); White Blood Count 12.7 K/mm3 (4.5-10.0)
[2022-03-27] MEDS: PERFLUTREN LIPID MICROSPHERES 1.5 ML VIAL DILUTED TO 10 ML TOTAL VOLUME IV PUSH (09:00)
[2022-03-27] MEDS: HEPARIN SODIUM 5,000 UNITS/ML VIAL 5000 UNITS SUB-Q ×2 (09:20→20:58)
[2022-03-27] MEDS: PANTOPRAZOLE SODIUM IV 40 MG VIAL IV PUSH (09:20)
[2022-03-27 12:01] LABS: Glucose Point of Care 171 mg/dl (65-105)
--- NOTE | 2022-03-27 12:26 | P.PNNP_ITS ---
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) * insensible losses (fevers and NG output) * creatinine relatively stable (not worse but not better) * aside from sodium, no critical electrolytes * making urine at this time * renal ultrasound results noted * continue IVFs for now * follow trend of repeat labs and UOP (2) Hypernatremia: Code(s): E87.0 - Hyperosmolality and hypernatremia Status: Acute Assessment and Plan: * due to severe free water deficit * IVFs adjusted * once able to take enteral feeds, would start and titrate free water flushes * alternatively, may need to use TPN and will need to add free water to this * follow trend of sodium levels (3) Small bowel obstruction: Code(s): K56.609 - Unspecified intestinal obstruction, unspecified as to partial versus complete obstruction Status: Acute Assessment and Plan: * due to incarcerated umbical hernia * s/p exploratory laparotomy, small-bowel resection, and repair of incarcerated umbilical hernia * Surgery following (4) Pneumonia: Qualifiers: Laterality: bilateral Lung location: lower lobe of lung Pneumonia type: due to unspecified organism Qualified Code(s): J18.9 - Pneumonia, unspecified organism Code(s): J18.9 - Pneumonia, unspecified organism Status: Acute Assessment and Plan: * as noted by recent imaging * possibly complicated by aspiration * follow culture data * on antibiotics (5) Recurrent fever: Code(s): A68.9 - Relapsing fever, unspecified Status: Acute Assessment and Plan: * afebrile for the last 24 hours * follow temperature curve (6) Parkinson's disease: Code(s): G20 - Parkinson's disease Status: Chronic Assessment and Plan: * back on home medications Will continue to follow. Subjective Date/time seen: 03/27/22 12:26 The patient appears to be making slow and steady progress at the time of my visit; sodium continues to improve slowly as is renal function/creatinine; no acute issues/events overnight or earlier this morning; no apparent distress voiced. Exam Narrative: General: elderly male in NAD Heart: normal S1 and S2; no rub Lungs: coarse breath sounds Abdomen: soft, nontender, nondistended, + bowel sounds Extremities: no cyanosis or clubbing; no edema Skin: warm and intact Objective Data Vital Signs Vital Signs: Vital Signs Temp Pulse Resp BP Pulse Ox O2 Del Method O2 Flow Rate 03/27/22 09:50 36.2 C L 91 20 106/67 97 03/27/22 08:00 97 Nasal Cannula 2 03/27/22 08:00 93 03/27/22 07:54 80 20 03/27/22 07:46 77 18 03/27/22 07:46 96 Nasal Cannula 2 03/27/22 04:00 96 03/27/22 03:59 37.3 C 97 20 110/67 97 03/27/22 02:15 84 20 03/27/22 02:05 80 20 03/27/22 00:00 35.8 C L 85 18 98/58 L 98 03/27/22 00:00 86 03/26/22 20:00 96 Nasal Cannula 2 03/26/22 20:00 79
--- NOTE | 2022-03-27 12:26 | PM.PNNEP ---
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) insensible losses (fevers and NG output) creatinine relatively stable (not worse but not better) aside from sodium, no critical electrolytes making urine at this time renal ultrasound results noted continue IVFs for now follow trend of repeat labs and UOP (2) Hypernatremia: Code(s): E87.0 - Hyperosmolality and hypernatremia Status: Acute Assessment and Plan: due to severe free water deficit IVFs adjusted once able to take enteral feeds, would start and titrate free water flushes alternatively, may need to use TPN and will need to add free water to this follow trend of sodium levels (3) Small bowel obstruction: Code(s): K56.609 - Unspecified intestinal obstruction, unspecified as to partial versus complete obstruction Status: Acute Assessment and Plan: due to incarcerated umbical hernia s/p exploratory laparotomy, small-bowel resection, and repair of incarcerated umbilical hernia Surgery following (4) Pneumonia: Qualifiers: Laterality: bilateral Lung location: lower lobe of lung Pneumonia type: due to unspecified organism Qualified Code(s): J18.9 - Pneumonia, unspecified organism Code(s): J18.9 - Pneumonia, unspecified organism Status: Acute Assessment and Plan: as noted by recent imaging possibly complicated by aspiration follow culture data on antibiotics (5) Recurrent fever: Code(s): A68.9 - Relapsing fever, unspecified Status: Acute Assessment and Plan: afebrile for the last 24 hours follow temperature curve (6) Parkinson's disease: Code(s): G20 - Parkinson's disease Status: Chronic Assessment and Plan: back on home medications Will continue to follow. Subjective Date/time seen: 03/27/22 12:26 The patient appears to be making slow and steady progress at the time of my visit; sodium continues to improve slowly as is renal function/creatinine; no acute issues/events overnight or earlier this morning; no apparent distress voiced. Exam Narrative: General: elderly male in NAD Heart: normal S1 and S2; no rub Lungs: coarse breath sounds Abdomen: soft, nontender, nondistended, + bowel sounds Extremities: no cyanosis or clubbing; no edema Skin: warm and intact Objective Data Vital Signs Vital Signs: Vital Signs Temp Pulse Resp BP Pulse Ox O2 Del Method O2 Flow Rate 03/27/22 09:50 36.2 C L 91 20 106/67 97 03/27/22 08:00 97 Nasal Cannula 2 03/27/22 08:00 93 03/27/22 07:54 80 20 03/27/22 07:46 77 18 03/27/22 07:46 96 Nasal Cannula 2 03/27/22 04:00 96 03/27/22 03:59 37.3 C 97 20 110/67 97 03/27/22 02:15 84 20 03/27/22 02:05 80 20 03/27/22 00:00 35.8 C L 85 18 98/58 L 98 03/27/22 00:00 86 03/26/22 20:00 96 Nasal Cannula 2 03/26/22 20:00 79 03/26/22 20:47 96 Nasal Cannula 2 03/26/22 20:46 86 20 03/26/22 20:32 80 20 03/26/22 20:00 36.0 C L 80 18 98/56 L 100 03/26/22 16:00 83 03/26/22 16:00 37.3 C 78 20 114/62 98 03/26/22 15:43 88 20 03/26/22 15:35 88 20 Intake/Output Intake/Output: Intake & Output 03/24/22 03/25/22 03/26/22 03/27/22 23:59 23:59 23:59 23:59 Intake Total 2900 2500 2700 1200 Output Total 3400 2250 3200 1825 Balance -500 250 -500 -625 Meds/Results Medications: Active Medications Generic Name Dose Route Start Last Admin Trade Name Freq PRN Reason Stop Dose Admin Acetaminophen 650 mg 03/20/22 09:01 03/26/22 01:16 A
--- NOTE | 2022-03-27 13:54 | PCNFU ---
Nutrition Follow-Up Complete: Swallowing Difficulties as related to Parkinson as evidenced by Tube feeding diet orders. Goal: Meet estimated nutritional needs Patient has limited progress towards goal. We will continue current goal. Pt current nutrition is Glucerna 1.2 at 20 ml/hr over 22 hours. Last recorded weight is 86.8 kg, down from 94.2 kg on admit. Bowel Motility:+BM reported 03/26 Labs Reviewed: Glu 178, GFR 37, Na 146, Alb 2.9 Meds Noted:Heparin, Albuterol,Protonix, Atrovent Skin: WNL Additional Notes: Patient seen today for nutrition follow up. Spoke with nursing, patient getting fleets enema today. Tube feedings currently on hold due to 650 ml residual on 03/24. Discussed case with BRENDAN Dick today. Recommend possible Reglan to help with GI motility. Tube feedings of Glucerna 1.2 appropriate, Recommend goal rate at 75 ml/hr over 22 hours with 30 ml free water flush q 4 hours. Agree with diet orders. Will monitor every Saturday and Saturday.
--- NOTE | 2022-03-27 15:27 | PM.PNGS ---
Progress Note: A&P Assessment and Plan (1) Small bowel obstruction: Code(s): K56.609 - Unspecified intestinal obstruction, unspecified as to partial versus complete obstruction Status: Acute Assessment and Plan: Tube feedings resumed and not tolerated. He had high residuals and tube feeding has been put back on hold. Had a conversation with his today about starting TPN and placing a PICC line. She would like to talk to her daughter before having the PICC line placed and starting TPN. He will need some form of nutrition, which we discussed. Once they have made a decision, then we could start him on TPN if they are agreeable. The other option would be PPN. (2) Fecal impaction: Code(s): K56.41 - Fecal impaction Status: Acute Assessment and Plan: Ordered fleets enema today. He has now had one more BM. Continue to monitor and stimulate bowels as needed. (3) Status post hernia repair: Code(s): Z98.890 - Other specified postprocedural states; Z87.19 - Personal history of other diseases of the digestive system Status: Acute (4) Fever: Code(s): R50.9 - Fever, unspecified Status: Acute (5) Pneumonia: Qualifiers: Laterality: bilateral Lung location: lower lobe of lung Pneumonia type: due to unspecified organism Qualified Code(s): J18.9 - Pneumonia, unspecified organism Code(s): J18.9 - Pneumonia, unspecified organism Status: Acute Plan I have discussed the patient's case and plan of care with Dr. Galaviz. Subjective Subjective Date/Time Seen: 03/27/22 13:27 Post Op day: 9 Patient reports: no new complaints, flatus, bowel movement (x1 small BM after fleets enema today) and afebrile (since 1:00 am yesterday morning) Interval history: Patient seen and examined with his , Norma at the bedside. Chart reviewed. He denies any abdominal pain. He reports feeling slight nausea, but no vomiting. No other specific complaints at this time. Per nursing, his tube feeding was started at 20 cc/hr last night and when checking his residual around 4:00 am this morning the nurse had 600 cc as residual and put the tube feedings on hold. They have since put his NG tube back to wall suction and had about 600 cc output. He was given a fleets enema today and had one BM following this. They also report using the brigida to get him up to the chair today, but he is now back in bed. Review of Systems Review of Systems: ROS unobtainable: Yes unobtainable due to mental status Exam GI: Inspection: non-distended, incision ( Intact with jasmyn, dry and healing well) and other (no redness or drainage from incision) GI Palp: Yes Soft to palpation, No Tenderness to palpation present (GI), No Guarding due to palpation present (GI) and No Rebound tenderness present Auscultation: normal bowel sounds Objective Data Vital Signs Vital Signs: Vital Signs - 24 hr 03/26/22 15:35 03/26/22 15:43 03/26/22 16:00 Temperature 99.1 F Pulse Rate 88 88 78 Respiratory Rate 20 20 20 Blood Pressure 114/62 Pulse Oximetry 98 Oxygen Delivery Oxygen Flow Rate 03/26/22 16:00 03/26/22 20:00 03/26/22 20:32 Temperature 96.8 F L Pulse Rate 83 80 80 Respiratory Rate 18 20 Blood Pressure 98/56 L Pulse Oximetry 100 Oxygen Delivery Oxygen Flow Rate 03/26/22 20:46 03/26/22 20:47 03/26/22 20:00 Temperature Pulse Rate 86 79 Respiratory Rate 20 Blood Pressure Pulse Oximetry 96 Oxygen Delivery Nasal Cannula Oxygen Flow Rate 2 03/26/22 20:00 03/27/22 00:00 03/27/22 00:00 Temperature 96.4 F L Pulse Rate 86 85 Respiratory Rate 18 Blood Pressure 98/58 L Pulse Oximetry 96 98 Oxygen Delivery Nasal Cannula Oxygen Flow Rate 2 03/27/22 02:05 03/27/22 02:15 03/27/22 03:59 Temperature 99.1 F Pulse Rate 80 84 97 Respiratory Rate 20 20 20 Blood Pressure 110/67 Pulse Oximetry 97 Oxygen Delivery Oxygen Flow Rate
[2022-03-27 17:39] LABS: Vancomycin Trough 12.6 ug/mL (10.0-20.0)
[2022-03-27 18:09] LABS: Glucose Point of Care 160 mg/dl (65-105)
[2022-03-27 19:24] LABS: Anion Gap 8 mmol/L (8-16); Blood Urea Nitrogen 63 mg/dL (9-20); Calcium 7.9 mg/dL (8.4-10.2); Carbon Dioxide 20 mmol/L (22-30); Chloride 119 mmol/L (98-107); Estimated CRCL calculation 48 ml/min; Estimated Glomerular Filt Rate 46; Glucose 160 mg/dL (65-110); Potassium 3.8 mmol/L (3.4-5.0); Sodium 147 mmol/L (137-145)
[2022-03-27 20:51] LABS: Basophils Absolute Auto 0.1 K/mm3 (0.0-0.1); Basophils Percent Auto 0.6 % (0.2-1.2); Eosinophils Absolute Auto 0.1 K/mm3 (0-0.3); Eosinophils Percent Auto 0.8 % (0-4.4); Hematocrit 48.6 % (42.0-52.0); Hemoglobin 15.3 g/dL (14.0-18.0); Immature Granulocyte Absolute 0.06 K/mm3 (0.00-0.031); Immature Granulocyte Percent A 0.5 % (0-0.5); Lymphocytes Absolute Auto 1.04 K/mm3 (0.9-3.2); Lymphocytes Percent Auto 8.2 % (18.3-44.2); Mean Corpuscular HGB Conc 31.5 g/dl (32-36); Mean Corpuscular Hemoglobin 30.7 pg (26-34); Mean Corpuscular Volume 97.6 fl (80-100); Mean Platelet Volume 12.9 fl (7.4-10.4); Monocytes Absolute Auto 1.1 K/mm3 (0.1-0.6); Neutrophils Absolute Auto 10.3 K/mm3 (1.3-6.7); Neutrophils Percent Auto 80.9 % (45.5-73.1); Platelet Count Result 207 k/mm3 (150-375); Red Blood Count 4.98 M/mm3 (4.6-6.20); Red Cell Distribution Width 13.5 % (11.5-14.5); White Blood Count 12.7 K/mm3 (4.5-10.0)
[2022-03-27 21:30] LABS: Glucose Point of Care 190 mg/dl (65-105)
[2022-03-27 23:35] LABS: Glucose Point of Care 155 mg/dl (65-105)
[2022-03-28] VITALS (19 sets, daily range): BP systolic 104–112; BP diastolic 54–62; PULSE 73–94; RESP 12–24; TEMP 36.4–37.1; O2SAT 95–100
[2022-03-28] MEDS: IPRATROPIUM BR 0.02% INH SOLN 0.5 MG/2.5 ML VIAL INHALATION ×5 (02:02→21:35)
[2022-03-28] MEDS: ALBUTEROL SULFATE NEB 2.5 MG/3 ML INH 5 MG INHALATION ×3 (02:02→21:35)
[2022-03-28] MEDS: DEXTROSE 5% 1,000 ML 1,000 ML 100 ML IV CONT ×2 (04:19→15:00)
[2022-03-28 05:53] LABS: Alanine Aminotransferase 38 U/L (6-50); Albumin Level 2.9 g/dL (3.5-5.1); Alkaline Phosphatase 93 U/L (38-126); Anion Gap 10 mmol/L (8-16); Aspartate Amino Transferase 51 U/L (17-59); Bilirubin,Total 0.9 mg/dL (0.2-1.3); Blood Urea Nitrogen 54 mg/dL (9-20); Calcium 7.8 mg/dL (8.4-10.2); Carbon Dioxide 21 mmol/L (22-30); Chloride 115 mmol/L (98-107); Estimated CRCL calculation 45 ml/min; Estimated Glomerular Filt Rate 43; Glucose 159 mg/dL (65-110); Magnesium 2.5 mg/dL (1.6-2.3); Phosphorus 4.8 mg/dL (2.5-4.5); Potassium 3.1 mmol/L (3.4-5.0); Sodium 146 mmol/L (137-145)
[2022-03-28 06:10] LABS: Glucose Point of Care 162 mg/dl (65-105)
[2022-03-28] MEDS: ALBUTEROL SULFATE NEB 2.5 MG/0.5 ML INH 5 MG (08:55)
[2022-03-28] MEDS: PANTOPRAZOLE SODIUM IV 40 MG VIAL IV PUSH (08:56)
[2022-03-28] MEDS: HEPARIN SODIUM 5,000 UNITS/ML VIAL 5000 UNITS SUB-Q ×2 (08:56→20:49)
--- NOTE | 2022-03-28 09:34 | PM.IMPN ---
Progress Note: A&P Assessment and Plan (1) Fecal impaction: Code(s): K56.41 - Fecal impaction Status: Acute (2) Recurrent fever: Code(s): A68.9 - Relapsing fever, unspecified Status: Acute (3) Status post hernia repair: Code(s): Z98.890 - Other specified postprocedural states; Z87.19 - Personal history of other diseases of the digestive system Status: Acute (4) Acute metabolic encephalopathy: Code(s): G93.41 - Metabolic encephalopathy Status: Acute (5) Hypernatremia: Code(s): E87.0 - Hyperosmolality and hypernatremia Status: Acute (6) Ileus: Code(s): K56.7 - Ileus, unspecified Status: Acute (7) Fever: Code(s): R50.9 - Fever, unspecified Status: Acute (8) Dysphagia: Code(s): R13.10 - Dysphagia, unspecified Status: Acute (9) Hypernatremia: Code(s): E87.0 - Hyperosmolality and hypernatremia Status: Acute (10) Acute respiratory failure: Code(s): J96.00 - Acute respiratory failure, unspecified whether with hypoxia or hypercapnia Status: Acute (11) Small bowel obstruction: Code(s): K56.609 - Unspecified intestinal obstruction, unspecified as to partial versus complete obstruction Status: Acute (12) Acute kidney injury: Code(s): N17.9 - Acute kidney failure, unspecified Status: Acute (13) Obstructed umbilical hernia: Code(s): K42.0 - Umbilical hernia with obstruction, without gangrene Status: Acute (14) Small bowel obstruction: Code(s): K56.609 - Unspecified intestinal obstruction, unspecified as to partial versus complete obstruction Status: Acute (15) Aspiration pneumonia: Code(s): J69.0 - Pneumonitis due to inhalation of food and vomit Status: Acute (16) Parkinson's disease dementia: Code(s): G20 - Parkinson's disease; F02.80 - Dementia in other diseases classified elsewhere without behavioral disturbance Status: Acute (17) Parkinson's disease: Code(s): G20 - Parkinson's disease Status: Chronic (18) Severe sepsis: Code(s): A41.9 - Sepsis, unspecified organism; R65.20 - Severe sepsis without septic shock Status: Acute (19) Pneumonia: Qualifiers: Laterality: bilateral Lung location: lower lobe of lung Pneumonia type: due to unspecified organism Qualified Code(s): J18.9 - Pneumonia, unspecified organism Code(s): J18.9 - Pneumonia, unspecified organism Status: Acute (20) NATALIO (acute kidney injury): Code(s): N17.9 - Acute kidney failure, unspecified Status: Acute (21) Hearing Loss: Qualifiers: Hearing loss type: unspecified Code(s): H91.90 - Unspecified hearing loss, unspecified ear Status: Acute (22) Acute respiratory failure with hypoxia: Code(s): J96.01 - Acute respiratory failure with hypoxia Status: Acute (23) Diet-controlled diabetes mellitus: Code(s): E11.9 - Type 2 diabetes mellitus without complications Status: Acute Plan 03/28/22. will attempt low dose tube feeds tonight restart Parkinson's medication dulcolax suppository added pt will need manual disimpaction if unable clear stool w bowel regimen cont current abx afebrile for 24 hrs PT/OT Subjective Date/time seen: 03/28/22 09:34 Patient minimally able to interact due to advanced Parkinson's. is bedside and review plan of care together. They are in agreement to TPN if he is unable to tolerate tube feeds. They would like for him to continue to receive his Parkinson's medicine to improve his ability to speak swallow and mobilize. Patient with fecal impaction on imaging Dulcolax suppository ordered and message sent to surgery for review of bowel regimen. Exam Narrative: GEN: NAD, Alert , cooperative HEENT: NCAT, MMM, EOMI, NGT in place Neck: no JVD Heart: S1S2 RRR Lungs: CTA B/l Abd: soft, NT, ND, bowel sounds
[2022-03-28 11:57] LABS: Glucose Point of Care 85 mg/dl (65-105)
--- NOTE | 2022-03-28 13:44 | PM.PNNEP ---
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) insensible losses (fevers and NG output) creatinine relatively stable (not worse but not better) aside from sodium, no critical electrolytes making urine at this time renal ultrasound results noted continue IVFs for now follow trend of repeat labs and UOP (2) Hypernatremia: Code(s): E87.0 - Hyperosmolality and hypernatremia Status: Acute Assessment and Plan: improving due to severe free water deficit IVFs adjusted (on D5W) once able to take enteral feeds, would start and titrate free water flushes alternatively, may need to use TPN and will need to add free water to this follow trend of sodium levels (3) Small bowel obstruction: Code(s): K56.609 - Unspecified intestinal obstruction, unspecified as to partial versus complete obstruction Status: Acute Assessment and Plan: due to incarcerated umbical hernia s/p exploratory laparotomy, small-bowel resection, and repair of incarcerated umbilical hernia Surgery following (4) Pneumonia: Qualifiers: Laterality: bilateral Lung location: lower lobe of lung Pneumonia type: due to unspecified organism Qualified Code(s): J18.9 - Pneumonia, unspecified organism Code(s): J18.9 - Pneumonia, unspecified organism Status: Acute Assessment and Plan: as noted by recent imaging possibly complicated by aspiration follow culture data on antibiotics (5) Recurrent fever: Code(s): A68.9 - Relapsing fever, unspecified Status: Acute Assessment and Plan: afebrile for the last 24 hours follow temperature curve (6) Parkinson's disease: Code(s): G20 - Parkinson's disease Status: Chronic Assessment and Plan: back on home medications Will continue to follow. Subjective Date/time seen: 03/28/22 13:44 Relative stability in sodium level with ongoing improvement in renal function as well; overall, seems to be getting better day by day; no apparent distress noted at this time; no issues/events overnight or earlier this AM. Exam Narrative: General: elderly male in NAD Heart: normal S1 and S2; no rub Lungs: coarse breath sounds Abdomen: soft, nontender, nondistended, + bowel sounds Extremities: no cyanosis or clubbing; no edema Skin: warm and intact Objective Data Vital Signs Vital Signs: Vital Signs Temp Pulse Resp BP Pulse Ox O2 Del Method O2 Flow Rate 03/28/22 13:35 36.6 C 94 20 104/54 L 100 03/28/22 13:27 90 20 03/28/22 13:20 89 20 03/28/22 12:00 88 03/28/22 08:00 98 Nasal Cannula 2 03/28/22 09:17 36.9 C 92 24 H 106/57 L 99 03/28/22 08:00 90 03/28/22 09:03 92 20 03/28/22 09:03 98 03/28/22 08:45 91 20 03/28/22 08:45 98 Nasal Cannula 2 03/28/22 04:00 91 03/28/22 04:00 36.4 C 90 20 105/58 L 100 03/28/22 02:21 85 20 03/28/22 02:08 84 20 03/28/22 00:00 36.6 C 86 22 H 112/62 99 03/28/22 00:00 87 03/27/22 20:00 87 03/27/22 20:00 82 20 91 Nasal Cannula 2 03/27/22 20:00 35.7 C L 94 22 H 110/58 L 91 03/27/22 20:06 82 20 03/27/22 19:55 93 Nasal Cannula 2 03/27/22 19:51 85 20 03/27/22 18:15 36.6 C 86 18 109/61 99 Intake/Output Intake/Output: Intake & Output 03/25/22 03/26/22 03/27/22 03/28/22 23:59 23:59 23:59 23:59 Intake Total 2500 3200 2400 2200 Output Total 2250 3200 2775 1225 Balance 250 0 -375 975 Meds/Results Medications: Active Medications Generic Name Dose Route Start Last Admin Trade Name F
--- NOTE | 2022-03-28 13:44 | P.PNNP_ITS ---
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) * insensible losses (fevers and NG output) * creatinine relatively stable (not worse but not better) * aside from sodium, no critical electrolytes * making urine at this time * renal ultrasound results noted * continue IVFs for now * follow trend of repeat labs and UOP (2) Hypernatremia: Code(s): E87.0 - Hyperosmolality and hypernatremia Status: Acute Assessment and Plan: * improving * due to severe free water deficit * IVFs adjusted (on D5W) * once able to take enteral feeds, would start and titrate free water flushes * alternatively, may need to use TPN and will need to add free water to this * follow trend of sodium levels (3) Small bowel obstruction: Code(s): K56.609 - Unspecified intestinal obstruction, unspecified as to partial versus complete obstruction Status: Acute Assessment and Plan: * due to incarcerated umbical hernia * s/p exploratory laparotomy, small-bowel resection, and repair of incarcerated umbilical hernia * Surgery following (4) Pneumonia: Qualifiers: Laterality: bilateral Lung location: lower lobe of lung Pneumonia type: due to unspecified organism Qualified Code(s): J18.9 - Pneumonia, unspecified organism Code(s): J18.9 - Pneumonia, unspecified organism Status: Acute Assessment and Plan: * as noted by recent imaging * possibly complicated by aspiration * follow culture data * on antibiotics (5) Recurrent fever: Code(s): A68.9 - Relapsing fever, unspecified Status: Acute Assessment and Plan: * afebrile for the last 24 hours * follow temperature curve (6) Parkinson's disease: Code(s): G20 - Parkinson's disease Status: Chronic Assessment and Plan: * back on home medications Will continue to follow. Subjective Date/time seen: 03/28/22 13:44 Relative stability in sodium level with ongoing improvement in renal function as well; overall, seems to be getting better day by day; no apparent distress noted at this time; no issues/events overnight or earlier this AM. Exam Narrative: General: elderly male in NAD Heart: normal S1 and S2; no rub Lungs: coarse breath sounds Abdomen: soft, nontender, nondistended, + bowel sounds Extremities: no cyanosis or clubbing; no edema Skin: warm and intact Objective Data Vital Signs Vital Signs: Vital Signs Temp Pulse Resp BP Pulse Ox O2 Del Method O2 Flow Rate 03/28/22 13:35 36.6 C 94 20 104/54 L 100 03/28/22 13:27 90 20 03/28/22 13:20 89 20 03/28/22 12:00 88 03/28/22 08:00 98 Nasal Cannula 2 03/28/22 09:17 36.9 C 92 24 H 106/57 L 99 03/28/22 08:00 90 03/28/22 09:03 92 20 03/28/22 09:03 98 03/28/22 08:45 91 20 03/28/22 08:45 98 Nasal Cannula 2 03/28/22 04:00 91 03/28/22 04:00 36.4 C 90 20 105/58 L 100 03/28/22 02:21 85 20
--- NOTE | 2022-03-28 16:11 | PM.PNGS ---
Progress Note: A&P Assessment and Plan (1) Small bowel obstruction: Code(s): K56.609 - Unspecified intestinal obstruction, unspecified as to partial versus complete obstruction Status: Acute Assessment and Plan: Seems to be improving and appears more alert today. Minimal NG output and bowels are moving. Will try to resume tube feeding at 20 cc/hr overnight. If he tolerates this and appears alert enough tomorrow, then he could have a modified barium swallow to re-evaluate his swallow. If he fails this, then we may need to consult GI for PEG tube placement. (2) Fecal impaction: Code(s): K56.41 - Fecal impaction Status: Acute Assessment and Plan: Bowels are moving. Continue to stimulate as needed. (3) Status post hernia repair: Code(s): Z98.890 - Other specified postprocedural states; Z87.19 - Personal history of other diseases of the digestive system Status: Acute (4) Fever: Code(s): R50.9 - Fever, unspecified Status: Acute Assessment and Plan: Afebrile since 03/26/22. (5) Pneumonia: Qualifiers: Laterality: bilateral Lung location: lower lobe of lung Pneumonia type: due to unspecified organism Qualified Code(s): J18.9 - Pneumonia, unspecified organism Code(s): J18.9 - Pneumonia, unspecified organism Status: Acute Plan I have discussed the patient's case and plan of care with Dr. Galaviz. Subjective Subjective Date/Time Seen: 03/28/22 16:11 Post Op day: 10 Patient reports: no new complaints, feels better, flatus, bowel movement and afebrile Interval history: Patient seen and examined today. He appears alert and is answering questions. His is also at the bedside. He denies any abdominal pain or nausea. Nursing reports two large BMs today and only 100 cc out of his NG today so far. They believe he had only minimal output from the NG overnight. Review of Systems Review of Systems: ROS unobtainable: Yes unobtainable due to mental status Exam Const: General: comfortable and no acute distress Orientation/consciousness: oriented to person and oriented to place GI: Inspection: non-distended, incision ( Intact with jasmyn, dry and healing well) and other (no redness or drainage from incision) GI Palp: Yes Soft to palpation, No Tenderness to palpation present (GI), No Guarding due to palpation present (GI), No Hernia present and No Rebound tenderness present Auscultation: normal bowel sounds Urinary Catheter: Urinary Catheter: patent and draining and urine dark Extrem: General: no calf tenderness and no edema Psych: Insight: Fair insight present (Psych) Judgement: Limited judgement present (Psych) Objective Data Vital Signs Vital Signs: Vital Signs - 24 hr 03/27/22 18:15 03/27/22 19:51 03/27/22 19:55 Temperature 97.8 F Pulse Rate 86 85 Respiratory Rate 18 20 Blood Pressure 109/61 Pulse Oximetry 99 93 Oxygen Delivery Nasal Cannula Oxygen Flow Rate 2 Fraction of Inspired Oxygen 03/27/22 20:06 03/27/22 20:00 03/27/22 20:00 Temperature 96.2 F L Pulse Rate 82 94 82 Respiratory Rate 20 22 H 20 Blood Pressure 110/58 L Pulse Oximetry 91 91 Oxygen Delivery Nasal Cannula Oxygen Flow Rate 2 Fraction of Inspired Oxygen 45 03/27/22 20:00 03/28/22 00:00 03/28/22 00:00 Temperature 97.8 F Pulse Rate 87 87 86 Respiratory Rate 22 H Blood Pressure 112/62 Pulse Oximetry 99 Oxygen Delivery Oxygen Flow Rate Fraction of Inspired Oxygen 03/28/22 02:08 03/28/22 02:21 03/28/22 04:00 Temperature 97.6 F Pulse Rate 84 85 90 Respiratory Rate 20 20 20 Blood Pressure 105/58 L Pulse Oximetry 100 Oxygen Delivery Oxygen Flow Rate Fraction of Inspired Oxygen 03/28/22 04:00 03/28/22 08:45 03/28/22 08:45 Temperature Pulse Rate 91 91 Respiratory Rate 20 Blood Pressure Pulse Oximetry 98 Oxygen Delivery Nasal Cannula Oxygen Flow R
[2022-03-28] MEDS: BISACODYL 10 MG SUPPOSITORY (18:31)
[2022-03-28 18:38] LABS: Glucose Point of Care 161 mg/dl (65-105)
--- NOTE | 2022-03-28 20:30 | PCRCNOTE ---
Breathing treatment and CPT via vest delayed. Pt on tube feeds. Nurse to stop tube feed temporarily. Breathing treatment and CPT via vest to be administered after tube feeds paused for appropriate amount of time.
[2022-03-28] MEDS: CARBIDOPA/LEVODOPA 25/100 MG TABLET 3 TABLET PO (20:46)
[2022-03-28 21:43] LABS: Glucose Point of Care 176 mg/dl (65-105)
[2022-03-29] VITALS (22 sets, daily range): BP systolic 105–126; BP diastolic 51–62; PULSE 77–93; RESP 16–24; TEMP 36.4–36.7; O2SAT 94–99; BMI 11.0
[2022-03-29 00:07] LABS: Glucose Point of Care 156 mg/dl (65-105)
[2022-03-29] MEDS: DEXTROSE 5% 1,000 ML 1,000 ML 100 ML IV CONT ×2 (02:45→20:25)
[2022-03-29] MEDS: ALBUTEROL SULFATE NEB 2.5 MG/3 ML INH 5 MG INHALATION ×4 (03:07→20:37)
[2022-03-29] MEDS: IPRATROPIUM BR 0.02% INH SOLN 0.5 MG/2.5 ML VIAL INHALATION ×4 (03:08→20:37)
[2022-03-29] MEDS: CARBIDOPA/LEVODOPA 25/100 MG TABLET 3 TABLET PO ×6 (05:14→20:33)
[2022-03-29 05:50] LABS: Glucose Point of Care 156 mg/dl (65-105)
[2022-03-29 06:08] LABS: Alanine Aminotransferase 23 U/L (6-50); Albumin Level 2.8 g/dL (3.5-5.1); Alkaline Phosphatase 110 U/L (38-126); Anion Gap 6 mmol/L (8-16); Aspartate Amino Transferase 51 U/L (17-59); Bilirubin,Total 0.9 mg/dL (0.2-1.3); Blood Urea Nitrogen 49 mg/dL (9-20); Calcium 7.9 mg/dL (8.4-10.2); Carbon Dioxide 24 mmol/L (22-30); Chloride 114 mmol/L (98-107); Estimated CRCL calculation 51 ml/min; Estimated Glomerular Filt Rate 50; Glucose 161 mg/dL (65-110); Magnesium 2.4 mg/dL (1.6-2.3); Phosphorus 3.8 mg/dL (2.5-4.5); Potassium 3.5 mmol/L (3.4-5.0); Sodium 144 mmol/L (137-145)
[2022-03-29] MEDS: HEPARIN SODIUM 5,000 UNITS/ML VIAL 5000 UNITS SUB-Q ×2 (09:19→20:33)
[2022-03-29] MEDS: PANTOPRAZOLE SODIUM IV 40 MG VIAL IV PUSH (09:19)
[2022-03-29 11:58] LABS: Glucose Point of Care 150 mg/dl (65-105)
--- NOTE | 2022-03-29 13:21 | PM.IMPN ---
Progress Note: A&P Assessment and Plan (1) Fecal impaction: Code(s): K56.41 - Fecal impaction Status: Acute (2) Recurrent fever: Code(s): A68.9 - Relapsing fever, unspecified Status: Acute (3) Status post hernia repair: Code(s): Z98.890 - Other specified postprocedural states; Z87.19 - Personal history of other diseases of the digestive system Status: Acute (4) Acute metabolic encephalopathy: Code(s): G93.41 - Metabolic encephalopathy Status: Acute (5) Hypernatremia: Code(s): E87.0 - Hyperosmolality and hypernatremia Status: Acute (6) Ileus: Code(s): K56.7 - Ileus, unspecified Status: Acute (7) Fever: Code(s): R50.9 - Fever, unspecified Status: Acute (8) Dysphagia: Code(s): R13.10 - Dysphagia, unspecified Status: Acute (9) Acute respiratory failure: Code(s): J96.00 - Acute respiratory failure, unspecified whether with hypoxia or hypercapnia Status: Acute (10) Small bowel obstruction: Code(s): K56.609 - Unspecified intestinal obstruction, unspecified as to partial versus complete obstruction Status: Acute (11) Acute kidney injury: Code(s): N17.9 - Acute kidney failure, unspecified Status: Acute (12) Obstructed umbilical hernia: Code(s): K42.0 - Umbilical hernia with obstruction, without gangrene Status: Acute (13) Aspiration pneumonia: Code(s): J69.0 - Pneumonitis due to inhalation of food and vomit Status: Acute (14) Parkinson's disease dementia: Code(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 - Parkinson's disease; F02.80 - Dementia in other diseases classified elsewhere without behavioral disturbance Status: Acute (15) Parkinson's disease: Code(s): G20 - Parkinson's disease Status: Chronic (16) Severe sepsis: Code(s): A41.9 - Sepsis, unspecified organism; R65.20 - Severe sepsis without septic shock Status: Acute (17) Pneumonia: Qualifiers: Laterality: bilateral Lung location: lower lobe of lung Pneumonia type: due to unspecified organism Qualified Code(s): J18.9 - Pneumonia, unspecified organism Code(s): J18.9 - Pneumonia, unspecified organism Status: Acute (18) Hearing Loss: Qualifiers: Hearing loss type: unspecified Code(s): H91.90 - Unspecified hearing loss, unspecified ear Status: Acute (19) Acute respiratory failure with hypoxia: Code(s): J96.01 - Acute respiratory failure with hypoxia Status: Acute (20) Diet-controlled diabetes mellitus: Code(s): E11.9 - Type 2 diabetes mellitus without complications Status: Acute Plan 03/28/22. will attempt low dose tube feeds tonight restart Parkinson's medication dulcolax suppository added pt will need manual disimpaction if unable clear stool w bowel regimen cont current abx afebrile for 24 hrs PT/OT 03/29/22 tolerated feeds overnight c/s ST concern for focal motor deficits stroke alert called, pt on Parkinsons medications just restarted yesterday afternoon VS WNL low suspicion at this time for CVA but will follow up w standard protocol and STAT CT brain ordered unable to have MRI dt TENS unit and PPM cont current care Subjective Date/time seen: 03/29/22 13:21 stroke alert called after and surgery team noted pt to have increased lethargy and L sided facial droop I have examined pt w at bedside. He has a neuro stimulator and a pacer device. He will not be able to undergo MRI brain. facial droop not appreciated on PE but pt does have LLE weakness unable to lift against gravity Exam Narrative: GEN: NAD, Alert , cooperative GCS 15 HEENT: NCAT, MMM, EOMI, NGT in place tolerating tube feeds Neck: no JVD Heart: S1S2 RRR Lungs: CTA B/l Abd: soft, NT, ND, bowel sounds present Ext: moves all LLE 1/5 RLE 2/5 LUE 2/5, RUE 2/5 , no cyanosis, no clubbing Psych: flattened affect Neuro: CN
--- NOTE | 2022-03-29 13:48 | P.PNNP_ITS ---
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) * insensible losses (fevers and NG output) * creatinine relatively stable if not improving * aside from sodium, no critical electrolytes * making urine at this time * renal ultrasound results noted * continue IVFs for now - attempt to wean off * follow trend of repeat labs and UOP (2) Hypernatremia: Code(s): E87.0 - Hyperosmolality and hypernatremia Status: Acute Assessment and Plan: * improving * due to severe free water deficit * IVFs adjusted (on D5W) * since tolerating tube feeds, will titrate free water flushes and wean off D5W IVFs * follow trend of sodium levels (3) Small bowel obstruction: Code(s): K56.609 - Unspecified intestinal obstruction, unspecified as to partial versus complete obstruction Status: Acute Assessment and Plan: * due to incarcerated umbical hernia * s/p exploratory laparotomy, small-bowel resection, and repair of incarcerated umbilical hernia * Surgery following (4) Pneumonia: Qualifiers: Laterality: bilateral Lung location: lower lobe of lung Pneumonia type: due to unspecified organism Qualified Code(s): J18.9 - Pneumonia, unspecified organism Code(s): J18.9 - Pneumonia, unspecified organism Status: Acute Assessment and Plan: * as noted by recent imaging * possibly complicated by aspiration * follow culture data * on antibiotics (5) Recurrent fever: Code(s): A68.9 - Relapsing fever, unspecified Status: Acute Assessment and Plan: * afebrile for the last 24 hours * follow temperature curve (6) Parkinson's disease: Code(s): G20 - Parkinson's disease Status: Chronic Assessment and Plan: * back on home medications Not much else to add -- will continue to follow intermittently. Subjective Date/time seen: 03/29/22 13:48 Tolerated tube feeds last night without any issues or problems; some concerns earlier today regarding possible CVA noted by facial droop -- however, STAT CT of brain without any acute intracranial process; renal function and sodium level continue to improve/stabilize; no apparent distress noted. Exam Narrative: General: elderly male in NAD Heart: normal S1 and S2; no rub Lungs: coarse breath sounds Abdomen: soft, nontender, nondistended, + bowel sounds Extremities: no cyanosis or clubbing; no edema Skin: no rash or nodules Objective Data Vital Signs Vital Signs: Vital Signs Temp Pulse Resp BP Pulse Ox O2 Del Method O2 Flow Rate 03/29/22 13:22 36.4 C 84 18 116/62 99 03/29/22 10:09 36.4 C 87 20 109/57 L 98 03/29/22 08:32 80 18 03/29/22 08:28 97 Nasal Cannula 2 03/29/22 08:21 78 18 03/29/22 07:55 84 24 H 97 Nasal Cannula 2 03/29/22 05:26 36.4 C 84 24 H 105/51 L 97 03/29/22 00:00 36.7 C 88 24 H 109/56 L 97 03/29/22 04:00 86 03/29/22 03:15 90 18 03/29/22 03:09 90 20
--- NOTE | 2022-03-29 13:48 | PM.PNNEP ---
Progress Note: A&P Assessment and Plan (1) Acute kidney injury: Code(s): N17.9 - Acute kidney failure, unspecified Status: Acute Assessment and Plan: resolving multifactorial etiology: relative hypotension/hemodynamic instability sepsis/infection (pneumonia) prerenal factors concurrent use of HCTZ ([employer]) insensible losses (fevers and NG output) creatinine relatively stable if not improving aside from sodium, no critical electrolytes making urine at this time renal ultrasound results noted continue IVFs for now - attempt to wean off follow trend of repeat labs and UOP (2) Hypernatremia: Code(s): E87.0 - Hyperosmolality and hypernatremia Status: Acute Assessment and Plan: improving due to severe free water deficit IVFs adjusted (on D5W) since tolerating tube feeds, will titrate free water flushes and wean off D5W IVFs follow trend of sodium levels (3) Small bowel obstruction: Code(s): K56.609 - Unspecified intestinal obstruction, unspecified as to partial versus complete obstruction Status: Acute Assessment and Plan: due to incarcerated umbical hernia s/p exploratory laparotomy, small-bowel resection, and repair of incarcerated umbilical hernia Surgery following (4) Pneumonia: Qualifiers: Laterality: bilateral Lung location: lower lobe of lung Pneumonia type: due to unspecified organism Qualified Code(s): J18.9 - Pneumonia, unspecified organism Code(s): J18.9 - Pneumonia, unspecified organism Status: Acute Assessment and Plan: as noted by recent imaging possibly complicated by aspiration follow culture data on antibiotics (5) Recurrent fever: Code(s): A68.9 - Relapsing fever, unspecified Status: Acute Assessment and Plan: afebrile for the last 24 hours follow temperature curve (6) Parkinson's disease: Code(s): G20 - Parkinson's disease Status: Chronic Assessment and Plan: back on home medications Not much else to add -- will continue to follow intermittently. Subjective Date/time seen: 03/29/22 13:48 Tolerated tube feeds last night without any issues or problems; some concerns earlier today regarding possible CVA noted by facial droop -- however, STAT CT of brain without any acute intracranial process; renal function and sodium level continue to improve/stabilize; no apparent distress noted. Exam Narrative: General: elderly male in NAD Heart: normal S1 and S2; no rub Lungs: coarse breath sounds Abdomen: soft, nontender, nondistended, + bowel sounds Extremities: no cyanosis or clubbing; no edema Skin: no rash or nodules Objective Data Vital Signs Vital Signs: Vital Signs Temp Pulse Resp BP Pulse Ox O2 Del Method O2 Flow Rate 03/29/22 13:22 36.4 C 84 18 116/62 99 03/29/22 10:09 36.4 C 87 20 109/57 L 98 03/29/22 08:32 80 18 03/29/22 08:28 97 Nasal Cannula 2 03/29/22 08:21 78 18 03/29/22 07:55 84 24 H 97 Nasal Cannula 2 03/29/22 05:26 36.4 C 84 24 H 105/51 L 97 03/29/22 00:00 36.7 C 88 24 H 109/56 L 97 03/29/22 04:00 86 03/29/22 03:15 90 18 03/29/22 03:09 90 20 03/29/22 00:00 89 03/28/22 20:00 87 03/28/22 20:00 92 18 98 Nasal Cannula 2 03/28/22 21:42 36.9 C 73 24 H 105/59 L 98 03/28/22 21:50 92 18 03/28/22 21:41 91 95 Nasal Cannula 2 03/28/22 21:36 91 18 03/28/22 18:20 37.1 C 88 12 107/57 L 100 03/28/22 16:00 90 Intake/Output Intake/Output: Intake & Output 03/26/22 03/27/22 03/28/22 03/29/22 23:59 23:59 23:59 23:59 Intake Total 3200 2900 2400 1700 Output Total 3200 2775 1950 850 Balance 0 125 450 850 Meds/Results Medications: Active Medications Generic Name Dose Route Start Last Admin Trade Name Freq PRN Reason Stop Dose Admin A
--- NOTE | 2022-03-29 14:11 | PM.PNGS ---
Progress Note: A&P Assessment and Plan (1) Small bowel obstruction: Code(s): K56.609 - Unspecified intestinal obstruction, unspecified as to partial versus complete obstruction Status: Acute Assessment and Plan: Tolerating tube feeding overnight. More lethargic today with altered mental status and left facial droop. Discussed with Hospitalist, stat CT brain ordered. Will hold off on MBS while working up altered mental status. Okay to start slowly advancing tube feedings per dietitian recommendations. (2) Fecal impaction: Code(s): K56.41 - Fecal impaction Status: Acute Assessment and Plan: Bowels are moving. Continue to stimulate as needed. (3) Status post hernia repair: Code(s): Z98.890 - Other specified postprocedural states; Z87.19 - Personal history of other diseases of the digestive system Status: Acute (4) Fever: Code(s): R50.9 - Fever, unspecified Status: Acute Assessment and Plan: Afebrile since 03/26/22. (5) Pneumonia: Qualifiers: Laterality: bilateral Lung location: lower lobe of lung Pneumonia type: due to unspecified organism Qualified Code(s): J18.9 - Pneumonia, unspecified organism Code(s): J18.9 - Pneumonia, unspecified organism Status: Acute Plan I have discussed the patient's case and plan of care with Dr. Galaviz. Subjective Subjective Date/Time Seen: 03/29/22 12:41 Post Op day: 11 Interval history: Patient seen and examined today with his and the nurse at the bedside. He is much more lethargic today. He is able to be aroused and will follow commands, but falls back asleep quickly without stimulation. He denies any pain when asked but unable to ask any other specific questions with his lethargy. He appears to have left-sided facial droop as well. His nurse reports he has been lethargic this morning and difficult to arouse. He has tolerated his tube feedings. His Parkinson's medication have been restarted. He is still afebrile. Nurse does not recall him having a BM yet this morning. One documented BM from overnight. Review of Systems Review of Systems: ROS unobtainable: Yes unobtainable due to mental status Exam Const: General: lethargic Orientation/consciousness: oriented to person and lethargic Limitations: altered mental status GI: Inspection: non-distended, incision ( Intact with jasmyn, dry and healing well) and other (no redness or drainage from incision) GI Palp: Yes Soft to palpation, No Tenderness to palpation present (GI), No Guarding due to palpation present (GI) and No Rebound tenderness present Auscultation: normal bowel sounds Urinary Catheter: Urinary Catheter: patent and draining Neuro: General: other (Left facial droop, strength seems to be equal bilaterally) Cranial nerves: Yes Equal, round and reactive pupils present Other: Limited due to Parkinson's disease Extrem: General: no calf tenderness and no edema Psych: Judgement: Limited judgement present (Psych) Objective Data Vital Signs Vital Signs: Vital Signs - 24 hr 03/28/22 16:00 03/28/22 18:20 03/28/22 21:36 Temperature 98.7 F Pulse Rate 90 88 91 Respiratory Rate 12 18 Blood Pressure 107/57 L Pulse Oximetry 100 Oxygen Delivery Oxygen Flow Rate Fraction of Inspired Oxygen 03/28/22 21:41 03/28/22 21:50 03/28/22 21:42 Temperature 98.4 F Pulse Rate 91 92 73 Respiratory Rate 18 24 H Blood Pressure 105/59 L Pulse Oximetry 95 98 Oxygen Delivery Nasal Cannula Oxygen Flow Rate 2 Fraction of Inspired Oxygen 03/28/22 20:00 03/28/22 20:00 03/29/22 00:00 Temperature Pulse Rate 92 87 89 Respiratory Rate 18 Blood Pressure Pulse Oximetry 98 Oxygen Delivery Nasal Cannula Oxygen Flow Rate 2 Fraction of Inspired Oxygen 45 03/29/22 03:09 03/29/22 03:15 03/29/22 04:00 Temperature Pulse Rate 90 90 86 Respiratory Rate 20 18 Blood Pressure Pulse
[2022-03-29] MEDS: BISACODYL 10 MG SUPPOSITORY RECTAL (14:52)
[2022-03-29 18:22] LABS: Glucose Point of Care 158 mg/dl (65-105)
[2022-03-29 21:48] LABS: Glucose Point of Care 137 mg/dl (65-105)
[2022-03-30] VITALS (19 sets, daily range): BP systolic 106–132; BP diastolic 60–83; PULSE 88–112; RESP 16–24; TEMP 36.5–36.9; O2SAT 94–100
[2022-03-30 00:01] LABS: Glucose Point of Care 145 mg/dl (65-105)
[2022-03-30] MEDS: ALBUTEROL SULFATE NEB 2.5 MG/3 ML INH 5 MG INHALATION (02:07)
[2022-03-30] MEDS: IPRATROPIUM BR 0.02% INH SOLN 0.5 MG/2.5 ML VIAL INHALATION ×3 (02:07→15:12)
[2022-03-30] MEDS: CARBIDOPA/LEVODOPA 25/100 MG TABLET 3 TABLET PO (05:01)
[2022-03-30 05:35] LABS: Glucose Point of Care 142 mg/dl (65-105)
[2022-03-30 06:23] LABS: Alanine Aminotransferase 12 U/L (6-50); Albumin Level 2.9 g/dL (3.5-5.1); Alkaline Phosphatase 114 U/L (38-126); Anion Gap 5 mmol/L (8-16); Aspartate Amino Transferase 49 U/L (17-59); Bilirubin,Total 0.7 mg/dL (0.2-1.3); Blood Urea Nitrogen 42 mg/dL (9-20); Calcium 8.2 mg/dL (8.4-10.2); Carbon Dioxide 23 mmol/L (22-30); Chloride 111 mmol/L (98-107); Estimated CRCL calculation 55 ml/min; Estimated Glomerular Filt Rate 55; Glucose 147 mg/dL (65-110); Potassium 3.5 mmol/L (3.4-5.0); Sodium 139 mmol/L (137-145)
--- NOTE | 2022-03-30 08:33 | PM.PNGS ---
Progress Note: A&P Assessment and Plan (1) Obstructed umbilical hernia: Code(s): K42.0 - Umbilical hernia with obstruction, without gangrene Status: Acute Assessment and Plan: s/p SBR and repair, +bowel fxn, incision looks good, will need jasmyn out next week (2) Ileus: Code(s): K56.7 - Ileus, unspecified Status: Acute Assessment and Plan: resolving, will get nutrition consult and slowly increase TF to goal Subjective Subjective Date/Time Seen: 03/30/22 08:33 more alert this am, lupis trophic feeds the last 36 hours Review of Systems Review of Systems: ROS unobtainable: Yes unobtainable due to medical condition and unobtainable due to mental status Exam Const: General: comfortable, no acute distress and ill appearing Resp: Auscultation: diminished lung sounds Cardio: Rate: regular rate Rhythm: regular rhythm GI: Other: soft, NTND, +bs Objective Data Vital Signs Vital Signs: Vital Signs - 24 hr 03/29/22 10:09 03/29/22 13:22 03/29/22 14:36 Temperature 36.4 C 36.4 C Pulse Rate 87 84 77 Respiratory Rate 20 18 18 Blood Pressure 109/57 L 116/62 Pulse Oximetry 98 99 Oxygen Delivery Oxygen Flow Rate Fraction of Inspired Oxygen 03/29/22 14:50 03/29/22 12:00 03/29/22 16:00 Temperature Pulse Rate 79 85 83 Respiratory Rate 18 Blood Pressure Pulse Oximetry Oxygen Delivery Oxygen Flow Rate Fraction of Inspired Oxygen 03/29/22 18:00 03/29/22 20:42 03/29/22 20:47 Temperature 36.4 C Pulse Rate 81 81 Respiratory Rate 20 16 Blood Pressure 106/61 Pulse Oximetry 99 94 Oxygen Delivery Nasal Cannula Oxygen Flow Rate 2 Fraction of Inspired Oxygen 03/29/22 20:56 03/29/22 20:00 03/29/22 22:00 Temperature 36.4 C Pulse Rate 79 81 93 Respiratory Rate 16 16 20 Blood Pressure 126/61 Pulse Oximetry 94 99 Oxygen Delivery Nasal Cannula Oxygen Flow Rate 2 Fraction of Inspired Oxygen 45 03/29/22 20:00 03/30/22 00:00 03/30/22 00:42 Temperature 36.9 C Pulse Rate 90 102 H 95 Respiratory Rate 20 Blood Pressure 132/83 Pulse Oximetry 97 Oxygen Delivery Oxygen Flow Rate Fraction of Inspired Oxygen 03/30/22 02:10 03/30/22 02:21 03/30/22 04:00 Temperature Pulse Rate 105 H 107 H 112 H Respiratory Rate 22 H 18 Blood Pressure Pulse Oximetry Oxygen Delivery Oxygen Flow Rate Fraction of Inspired Oxygen 03/30/22 06:00 Temperature 36.9 C Pulse Rate 107 H Respiratory Rate 16 Blood Pressure 120/62 Pulse Oximetry 98 Oxygen Delivery Oxygen Flow Rate Fraction of Inspired Oxygen Intake/Output Intake/Output: Intake & Output 03/27/22 03/28/22 03/29/22 03/30/22 23:59 23:59 23:59 23:59 Intake Total 2900 2400 2900 Output Total 2775 1950 1600 200 Balance 369 447 0178 -200 Meds/Results Medications: Active Medications Generic Name Dose Route Start Last Admin Trade Name Freq PRN Reason Stop Dose Admin Acetaminophen 650 mg 03/20/22 09:01 03/26/22 01:16 Acetaminophen Elixir 325 Mg/10.15 Ml Udc FEED TUBE 650 mg Q4H PRN Administration Mild Pain (1-3) or Fever Albuterol 5 mg 03/16/22 14:00 03/30/22 02:07 Albuterol Sulfate Neb 2.5 Mg/3 Ml Inh INHALATION 5 mg Q6HRT EVELINE Administration Albuterol 2.5 mg 03/21/22 20:32 Albuterol Sulfate Neb 2.5 Mg/3 Ml Inh INHALATION Q4HRT PRN Shortness Of Breath Carbidopa/Levodopa 3 tablet 03/16/22 18:00 03/30/22 05:01 Carbidopa/Levodopa 25/100 Mg Tablet PO 3 tablet 0600,0900,1200,1500,1800,2100 EVELINE Administration Dextrose 12.5 gm 03/16/22 13:45 Dextrose 50% 25 Gm/50 Ml Syringe IV PUSH PRN PRN Hypoglycemia Protocol Glucagon 1 mg 03/16/22 13:45 Glucagon For Inj 1 Mg Vial IM PRN PRN Hypoglycemia Protocol Glucose 15 gm 03/16/22 13:45 Glucose Oral Gel 15 Gm Of Glucse In 37.5 Gm Tube PO PRN PRN Hypoglycemia Protoco
[2022-03-30] MEDS: PANTOPRAZOLE SODIUM IV 40 MG VIAL IV PUSH (08:57)
[2022-03-30] MEDS: HEPARIN SODIUM 5,000 UNITS/ML VIAL 5000 UNITS SUB-Q ×2 (08:57→20:28)
[2022-03-30] MEDS: ALBUTEROL SULFATE NEB 2.5 MG/0.5 ML INH 5 MG ×3 (09:10→19:58)
--- NOTE | 2022-03-30 09:47 | PCSTNOTE ---
Please refer to the Bedside Swallow Evaluation in the EMR. Please note, silent aspiration cannot be ruled out at bedside.
[2022-03-30] MEDS: CARBIDOPA/LEVODOPA 25/100 MG TABLET 3 TABLET FEED TUBE ×5 (10:30→20:28)
--- NOTE | 2022-03-30 11:11 | PCRCNOTE ---
Addendum entered by Benjamin Brown 03/30/22 11:13: Nebulizer tx given. Lung sounds clear diminished, SOB noted. Will continue CPT at 1400. Original Note: Pt feeding was unsecured. RN ordered CXR to confirm placement. CPT will be done as scheduled after CXR.
--- NOTE | 2022-03-30 11:17 | PCNFU ---
Nutrition Follow-Up Complete: Swallowing Difficulties as related to Parkinsons as evidenced by Tube feeding diet orders. goal: Meet estimated nutritional needs Patient is progressing towards goal. We will continue current goal. Pt current nutrition is Glucerna 1.2 at 20 ml/hr. Nutrition recommendation: Goal rate at 70 ml/hr over 22 hours. Last recorded weight is 88.8 kg, down from 94.2 kg on admit. Bowel Motility:+BM reported 03/29 Labs Reviewed:Glu 147, Alb 2.9,GFR 55, BUN 42. Meds Noted:Atrovent, Sinemet, Heparin, Protonix Skin: WNL Additional Notes: Patient had NGT replaced today. Tube feedings restarting of Glucerna 1.2 at 20 ml/hr advancing to goal rate of 70 ml/hr over 22 hours, providing 1848 kcals/92 gms protein/1240 ml water. Free water flush reduced from 150 ml to 50 ml q 4 hours, Na WNL. Agree with diet orders. Monitoring: will monitor every Saturday and Saturday.
[2022-03-30 12:09] LABS: Glucose Point of Care 142 mg/dl (65-105)
--- NOTE | 2022-03-30 13:28 | PCSTNOTE ---
Please refer to the Modified Barium Swallow Evaluation in the EMR.
--- NOTE | 2022-03-30 14:16 | PM.IMPN ---
Progress Note: A&P Assessment and Plan (1) Fecal impaction: Code(s): K56.41 - Fecal impaction Status: Acute (2) Recurrent fever: Code(s): A68.9 - Relapsing fever, unspecified Status: Acute (3) Status post hernia repair: Code(s): Z98.890 - Other specified postprocedural states; Z87.19 - Personal history of other diseases of the digestive system Status: Acute (4) Acute metabolic encephalopathy: Code(s): G93.41 - Metabolic encephalopathy Status: Acute (5) Hypernatremia: Code(s): E87.0 - Hyperosmolality and hypernatremia Status: Acute (6) Ileus: Code(s): K56.7 - Ileus, unspecified Status: Acute (7) Fever: Code(s): R50.9 - Fever, unspecified Status: Acute (8) Dysphagia: Code(s): R13.10 - Dysphagia, unspecified Status: Acute (9) Acute respiratory failure: Code(s): J96.00 - Acute respiratory failure, unspecified whether with hypoxia or hypercapnia Status: Acute (10) Small bowel obstruction: Code(s): K56.609 - Unspecified intestinal obstruction, unspecified as to partial versus complete obstruction Status: Acute (11) Acute kidney injury: Code(s): N17.9 - Acute kidney failure, unspecified Status: Acute (12) Obstructed umbilical hernia: Code(s): K42.0 - Umbilical hernia with obstruction, without gangrene Status: Acute (13) Aspiration pneumonia: Code(s): J69.0 - Pneumonitis due to inhalation of food and vomit Status: Acute (14) Parkinson's disease dementia: Code(s): G20 - Parkinson's disease; F02.80 - Dementia in other diseases classified elsewhere without behavioral disturbance Status: Acute (15) Parkinson's disease: Code(s): G20 - Parkinson's disease Status: Chronic (16) Severe sepsis: Code(s): A41.9 - Sepsis, unspecified organism; R65.20 - Severe sepsis without septic shock Status: Acute (17) Pneumonia: Qualifiers: Laterality: bilateral Lung location: lower lobe of lung Pneumonia type: due to unspecified organism Qualified Code(s): J18.9 - Pneumonia, unspecified organism Code(s): J18.9 - Pneumonia, unspecified organism Status: Acute (18) Hearing Loss: Qualifiers: Hearing loss type: unspecified Code(s): H91.90 - Unspecified hearing loss, unspecified ear Status: Acute (19) Acute respiratory failure with hypoxia: Code(s): J96.01 - Acute respiratory failure with hypoxia Status: Acute (20) Diet-controlled diabetes mellitus: Code(s): E11.9 - Type 2 diabetes mellitus without complications Status: Acute Plan 03/28/22. will attempt low dose tube feeds tonight restart Parkinson's medication dulcolax suppository added pt will need manual disimpaction if unable clear stool w bowel regimen cont current abx afebrile for 24 hrs PT/OT 03/29/22 tolerated feeds overnight c/s ST concern for focal motor deficits stroke alert called, pt on Parkinsons medications just restarted yesterday afternoon VS WNL low suspicion at this time for CVA but will follow up w standard protocol and STAT CT brain ordered unable to have MRI dt TENS unit and PPM cont current care 03/30/22 focal deficits improved has not passed swallow eval today will remain NPO w NGT POC reviewed w at bedside goals of care to feed remove NGT and dc to rehab Subjective Date/time seen: 03/30/22 14:16 pt doing ok more alert is bedside cleaning his mouth and recharging his deep brain stimulators. Exam Narrative: GEN: NAD, Alert , cooperative HEENT: NCAT, MMM, EOMI, NGT in place tolerating tube feeds Neck: no JVD Heart: S1S2 RRR Lungs: CTA B/l Abd: soft, NT, ND, bowel sounds present Ext: moves all LLE 2/5 RLE 2/5 LUE 2/5, RUE 3/5 , no cyanosis, no clubbing Psych: flattened affect improved from previous exam Neuro: CN intact, L hand tremor noted, muscl
[2022-03-30] MEDS: BISACODYL 10 MG SUPPOSITORY RECTAL (15:12)
[2022-03-30 18:12] LABS: Glucose Point of Care 131 mg/dl (65-105)
[2022-03-30] MEDS: DEXTROSE 5% 1,000 ML 1,000 ML 50 ML IV CONT (18:12)
[2022-03-30 19:13] LABS: Vancomycin Trough 10.5 ug/mL (10.0-20.0)
[2022-03-31] VITALS (22 sets, daily range): BP systolic 108–123; BP diastolic 48–68; PULSE 78–100; RESP 18–24; TEMP 36.4–36.8; O2SAT 92–97
[2022-03-31 00:24] LABS: Glucose Point of Care 133 mg/dl (65-105)
[2022-03-31 01:11] LABS: Appearance Urine Clear (Clear); Bilirubin Urine 1+ (Negative); Blood Urine Trace-lysed (Negative); Color Urine Yellow (Yellow); Glucose Urine UA Negative (Negative); Ketones Urine Trace mg/dL (Negative); Leukocyte Esterase Ur Negative LEU/UL (Negative); Nitrate Urine Negative (Negative); Protein Urine 1+ mg/dL (Negative); Specific Grav Ur 1.025 (1.001-1.035); Urobilinogen Urine 0.2 mg/dL (<2.0); pH Urine 5.5 (5.0-9.0)
[2022-03-31 01:32] LABS: Bacteria Urine Trace /hpf; Calcium Oxalate Crystals Urine Present /hpf; Mucus Urine Rare /lpf; RBC Urine 21-50 /hpf (0-2); Squamous Epithelial Cell Urine Rare /hpf (Few); Uric Acid Crystals Urine Present /hpf
[2022-03-31 01:34] LABS: Add Urine Microscopic? YES
[2022-03-31] MEDS: ALBUTEROL SULFATE NEB 2.5 MG/3 ML INH 5 MG INHALATION ×4 (02:35→20:45)
[2022-03-31] MEDS: IPRATROPIUM BR 0.02% INH SOLN 0.5 MG/2.5 ML VIAL INHALATION ×4 (02:36→20:45)
[2022-03-31] MEDS: CARBIDOPA/LEVODOPA 25/100 MG TABLET 3 TABLET FEED TUBE ×3 (06:14→11:56)
[2022-03-31 06:23] LABS: Glucose Point of Care 133 mg/dl (65-105)
[2022-03-31] MEDS: HEPARIN SODIUM 5,000 UNITS/ML VIAL 5000 UNITS SUB-Q ×2 (09:22→20:06)
[2022-03-31] MEDS: PANTOPRAZOLE SODIUM IV 40 MG VIAL IV PUSH (09:22)
[2022-03-31 11:39] LABS: Glucose Point of Care 111 mg/dl (65-105)
--- NOTE | 2022-03-31 12:39 | PM.IMPN ---
Progress Note: A&P Assessment and Plan (1) Fecal impaction: Code(s): K56.41 - Fecal impaction Status: Acute (2) Recurrent fever: Code(s): A68.9 - Relapsing fever, unspecified Status: Acute (3) Status post hernia repair: Code(s): Z98.890 - Other specified postprocedural states; Z87.19 - Personal history of other diseases of the digestive system Status: Acute (4) Acute metabolic encephalopathy: Code(s): G93.41 - Metabolic encephalopathy Status: Acute (5) Hypernatremia: Code(s): E87.0 - Hyperosmolality and hypernatremia Status: Acute (6) Ileus: Code(s): K56.7 - Ileus, unspecified Status: Acute (7) Fever: Code(s): R50.9 - Fever, unspecified Status: Acute (8) Dysphagia: Code(s): R13.10 - Dysphagia, unspecified Status: Acute (9) Acute respiratory failure: Code(s): J96.00 - Acute respiratory failure, unspecified whether with hypoxia or hypercapnia Status: Acute (10) Small bowel obstruction: Code(s): K56.609 - Unspecified intestinal obstruction, unspecified as to partial versus complete obstruction Status: Acute (11) Acute kidney injury: Code(s): N17.9 - Acute kidney failure, unspecified Status: Acute (12) Obstructed umbilical hernia: Code(s): K42.0 - Umbilical hernia with obstruction, without gangrene Status: Acute (13) Aspiration pneumonia: Code(s): J69.0 - Pneumonitis due to inhalation of food and vomit Status: Acute (14) Parkinson's disease dementia: Code(s): G20 - Parkinson's disease; F02.80 - Dementia in other diseases classified elsewhere without behavioral disturbance Status: Acute (15) Parkinson's disease: Code(s): G20 - Parkinson's disease Status: Chronic (16) Severe sepsis: Code(s): A41.9 - Sepsis, unspecified organism; R65.20 - Severe sepsis without septic shock Status: Acute (17) Pneumonia: Qualifiers: Laterality: bilateral Lung location: lower lobe of lung Pneumonia type: due to unspecified organism Qualified Code(s): J18.9 - Pneumonia, unspecified organism Code(s): J18.9 - Pneumonia, unspecified organism Status: Acute (18) Hearing Loss: Qualifiers: Hearing loss type: unspecified Code(s): H91.90 - Unspecified hearing loss, unspecified ear Status: Acute (19) Acute respiratory failure with hypoxia: Code(s): J96.01 - Acute respiratory failure with hypoxia Status: Acute (20) Diet-controlled diabetes mellitus: Code(s): E11.9 - Type 2 diabetes mellitus without complications Status: Acute Subjective Date/time seen: 03/31/22 12:39 Interval history: No overnight events. Working with RT this morning doing chest PT and receiving breathing treatment patient is somnolent but does respond to questions Review of Systems Review of Systems: 03/28/22. will attempt low dose tube feeds tonight restart Parkinson's medication dulcolax suppository added pt will need manual disimpaction if unable clear stool w bowel regimen cont current abx afebrile for 24 hrs PT/OT 03/29/22 tolerated feeds overnight c/s ST concern for focal motor deficits stroke alert called, pt on Parkinsons medications just restarted yesterday afternoon VS WNL low suspicion at this time for CVA but will follow up w standard protocol and STAT CT brain ordered unable to have MRI dt TENS unit and PPM cont current care 03/30/22 focal deficits improved has not passed swallow eval today will remain NPO w NGT POC reviewed w at bedside goals of care to feed remove NGT and dc to rehab 03/31/22 Now at goal with tube feeds All therapies following ST PT OT and RT Patient is showing some improvement Optimistic patient will passed swallow eval on Saturday and be able to be discharged to a care home facility otherwise he will require insertion of PEG tube cont desi
--- NOTE | 2022-03-31 14:02 | PC.NURSE ---
Dr Ponce notified of high tube feeding residual amout of 870, new orders received
[2022-03-31 17:41] LABS: Glucose Point of Care 119 mg/dl (65-105)
[2022-03-31 23:36] LABS: Glucose Point of Care 125 mg/dl (65-105)
[2022-04-01] VITALS (17 sets, daily range): BP systolic 99–127; BP diastolic 54–64; PULSE 85–99; RESP 16–22; TEMP 36.4–37.1; O2SAT 95–98
[2022-04-01] MEDS: ALBUTEROL SULFATE NEB 2.5 MG/3 ML INH 5 MG INHALATION ×2 (02:36→14:25)
[2022-04-01] MEDS: IPRATROPIUM BR 0.02% INH SOLN 0.5 MG/2.5 ML VIAL INHALATION ×3 (02:36→14:24)
[2022-04-01 05:50] LABS: Glucose Point of Care 109 mg/dl (65-105)
[2022-04-01 05:56] LABS: Basophils Percent Auto 0.3 % (0.2-1.2); Eosinophils Absolute Auto 0.1 K/mm3 (0-0.3); Eosinophils Percent Auto 0.8 % (0-4.4); Hematocrit 39.2 % (42.0-52.0); Hemoglobin 12.3 g/dL (14.0-18.0); Immature Granulocyte Absolute 0.05 K/mm3 (0.00-0.031); Immature Granulocyte Percent A 0.6 % (0-0.5); Lymphocytes Percent Auto 6.7 % (18.3-44.2); Mean Corpuscular HGB Conc 31.4 g/dl (32-36); Mean Corpuscular Hemoglobin 29.7 pg (26-34); Mean Corpuscular Volume 94.7 fl (80-100); Mean Platelet Volume 12.7 fl (7.4-10.4); Monocytes Absolute Auto 0.8 K/mm3 (0.1-0.6); Monocytes Percent Auto 8.7 % (2.6-8.5); Neutrophils Absolute Auto 7.4 K/mm3 (1.3-6.7); Neutrophils Percent Auto 82.9 % (45.5-73.1); Platelet Count Result 285 k/mm3 (150-375); Red Blood Count 4.14 M/mm3 (4.6-6.20); Red Cell Distribution Width 13.1 % (11.5-14.5); White Blood Count 8.9 K/mm3 (4.5-10.0)
[2022-04-01 06:04] LABS: INR 1.5; Prothrombin Time 17.1 Seconds (11.1-14.7)
[2022-04-01 06:13] LABS: Anion Gap 6 mmol/L (8-16); Blood Urea Nitrogen 36 mg/dL (9-20); Calcium 8.3 mg/dL (8.4-10.2); Carbon Dioxide 26 mmol/L (22-30); Chloride 110 mmol/L (98-107); Estimated CRCL calculation 55 ml/min; Estimated Glomerular Filt Rate 55; Glucose 105 mg/dL (65-110); Magnesium 2.2 mg/dL (1.6-2.3); Potassium 3.4 mmol/L (3.4-5.0); Sodium 142 mmol/L (137-145)
[2022-04-01] MEDS: HEPARIN SODIUM 5,000 UNITS/ML VIAL 5000 UNITS SUB-Q (08:11)
[2022-04-01] MEDS: PANTOPRAZOLE SODIUM IV 40 MG VIAL IV PUSH (09:12)
[2022-04-01] MEDS: ALBUTEROL SULFATE NEB 2.5 MG/0.5 ML INH 5 MG (10:00)
[2022-04-01 12:07] LABS: Glucose Point of Care 122 mg/dl (65-105)
--- NOTE | 2022-04-01 12:25 | PM.IMPN ---
Progress Note: A&P Assessment and Plan (1) Fecal impaction: Code(s): K56.41 - Fecal impaction Status: Acute (2) Recurrent fever: Code(s): A68.9 - Relapsing fever, unspecified Status: Acute (3) Status post hernia repair: Code(s): Z98.890 - Other specified postprocedural states; Z87.19 - Personal history of other diseases of the digestive system Status: Acute (4) Acute metabolic encephalopathy: Code(s): G93.41 - Metabolic encephalopathy Status: Acute (5) Hypernatremia: Code(s): E87.0 - Hyperosmolality and hypernatremia Status: Acute (6) Ileus: Code(s): K56.7 - Ileus, unspecified Status: Acute (7) Fever: Code(s): R50.9 - Fever, unspecified Status: Acute (8) Dysphagia: Code(s): R13.10 - Dysphagia, unspecified Status: Acute (9) Acute respiratory failure: Code(s): J96.00 - Acute respiratory failure, unspecified whether with hypoxia or hypercapnia Status: Acute (10) Small bowel obstruction: Code(s): K56.609 - Unspecified intestinal obstruction, unspecified as to partial versus complete obstruction Status: Acute (11) Acute kidney injury: Code(s): N17.9 - Acute kidney failure, unspecified Status: Acute (12) Obstructed umbilical hernia: Code(s): K42.0 - Umbilical hernia with obstruction, without gangrene Status: Acute (13) Aspiration pneumonia: Code(s): J69.0 - Pneumonitis due to inhalation of food and vomit Status: Acute (14) Parkinson's disease dementia: Code(s): G20 - Parkinson's disease; F02.80 - Dementia in other diseases classified elsewhere without behavioral disturbance Status: Acute (15) Parkinson's disease: Code(s): G20 - Parkinson's disease Status: Chronic (16) Severe sepsis: Code(s): A41.9 - Sepsis, unspecified organism; R65.20 - Severe sepsis without septic shock Status: Acute (17) Pneumonia: Qualifiers: Laterality: bilateral Lung location: lower lobe of lung Pneumonia type: due to unspecified organism Qualified Code(s): J18.9 - Pneumonia, unspecified organism Code(s): J18.9 - Pneumonia, unspecified organism Status: Acute (18) Hearing Loss: Qualifiers: Hearing loss type: unspecified Code(s): H91.90 - Unspecified hearing loss, unspecified ear Status: Acute (19) Acute respiratory failure with hypoxia: Code(s): J96.01 - Acute respiratory failure with hypoxia Status: Acute (20) Diet-controlled diabetes mellitus: Code(s): E11.9 - Type 2 diabetes mellitus without complications Status: Acute Plan 03/28/22. will attempt low dose tube feeds tonight restart Parkinson's medication dulcolax suppository added pt will need manual disimpaction if unable clear stool w bowel regimen cont current abx afebrile for 24 hrs PT/OT 03/29/22 tolerated feeds overnight c/s ST concern for focal motor deficits stroke alert called, pt on Parkinsons medications just restarted yesterday afternoon VS WNL low suspicion at this time for CVA but will follow up w standard protocol and STAT CT brain ordered unable to have MRI dt TENS unit and PPM cont current care 03/30/22 focal deficits improved has not passed swallow eval today will remain NPO w NGT POC reviewed w at bedside goals of care to feed remove NGT and dc to rehab 03/31/22 Now at goal with tube feeds All therapies following ST PT OT and RT Patient is showing some improvement Optimistic patient will passed swallow eval on Saturday and be able to be discharged to a long-term facility otherwise he will require insertion of PEG tube cont current care 04/01/22 Patient has been unable to tolerate his tube feeds he was placed back NPO by surgery late afternoon and overnight removed his NG tube I have spoken with his son via phone and the plan is for his father to return home with hospice services.
[2022-04-01 17:53] LABS: Glucose Point of Care 101 mg/dl (65-105)
--- NOTE | 2022-04-01 19:22 | PCCCNOTE ---
Bedside RN Ruba approached child care education coordinator on the floor that patient and family want to pursue hospice at [facility] or [facility]. Called to [facility] Lord [phone] fer donor relations manager, fax number for referrals is [phone]. Fax'd referral to [facility] as requested. Unable to find contact for [facility].
[2022-04-02] VITALS (7 sets, daily range): BP systolic 116–119; BP diastolic 61–65; PULSE 98–102; RESP 18; TEMP 36.4–36.9; O2SAT 91–97
--- NOTE | 2022-04-02 02:55 | PCRCNOTE ---
Daughter refused patient's 1999 and 199 treatments stating that her father is resting peacefully and will be going on hospice today (04/02/22). RT told daughter to contact RN (to get ahold of me) if she felt her father was uncomfortable or struggling to breathe.
[2022-04-02] MEDS: ALBUTEROL SULFATE NEB 2.5 MG/3 ML INH 5 MG INHALATION ×3 (08:38→20:33)
[2022-04-02] MEDS: IPRATROPIUM BR 0.02% INH SOLN 0.5 MG/2.5 ML VIAL INHALATION ×3 (08:38→20:33)
--- NOTE | 2022-04-02 08:39 | PCRCNOTE ---
Family of pt refused 0800 neb tx to be given to pt. Nurse notified.
[2022-04-02 12:36] LABS: Chlamydia pneumoniae by PCR Not Detected
--- NOTE | 2022-04-02 16:58 | PM.IMPN ---
Progress Note: A&P Assessment and Plan (1) Fecal impaction: Code(s): K56.41 - Fecal impaction Status: Acute (2) Recurrent fever: Code(s): A68.9 - Relapsing fever, unspecified Status: Acute (3) Status post hernia repair: Code(s): Z98.890 - Other specified postprocedural states; Z87.19 - Personal history of other diseases of the digestive system Status: Acute (4) Acute metabolic encephalopathy: Code(s): G93.41 - Metabolic encephalopathy Status: Acute (5) Hypernatremia: Code(s): E87.0 - Hyperosmolality and hypernatremia Status: Acute (6) Ileus: Code(s): K56.7 - Ileus, unspecified Status: Acute (7) Fever: Code(s): R50.9 - Fever, unspecified Status: Acute (8) Dysphagia: Code(s): R13.10 - Dysphagia, unspecified Status: Acute (9) Acute respiratory failure: Code(s): J96.00 - Acute respiratory failure, unspecified whether with hypoxia or hypercapnia Status: Acute (10) Small bowel obstruction: Code(s): K56.609 - Unspecified intestinal obstruction, unspecified as to partial versus complete obstruction Status: Acute (11) Acute kidney injury: Code(s): N17.9 - Acute kidney failure, unspecified Status: Acute (12) Obstructed umbilical hernia: Code(s): K42.0 - Umbilical hernia with obstruction, without gangrene Status: Acute (13) Aspiration pneumonia: Code(s): J69.0 - Pneumonitis due to inhalation of food and vomit Status: Acute (14) Parkinson's disease dementia: Code(s): G20 - Parkinson's disease; F02.80 - Dementia in other diseases classified elsewhere without behavioral disturbance Status: Acute (15) Parkinson's disease: Code(s): G20 - Parkinson's disease Status: Chronic (16) Severe sepsis: Code(s): A41.9 - Sepsis, unspecified organism; R65.20 - Severe sepsis without septic shock Status: Acute (17) Pneumonia: Qualifiers: Laterality: bilateral Lung location: lower lobe of lung Pneumonia type: due to unspecified organism Qualified Code(s): J18.9 - Pneumonia, unspecified organism Code(s): J18.9 - Pneumonia, unspecified organism Status: Acute (18) Hearing Loss: Qualifiers: Hearing loss type: unspecified Code(s): H91.90 - Unspecified hearing loss, unspecified ear Status: Acute (19) Acute respiratory failure with hypoxia: Code(s): J96.01 - Acute respiratory failure with hypoxia Status: Acute (20) Diet-controlled diabetes mellitus: Code(s): E11.9 - Type 2 diabetes mellitus without complications Status: Acute Plan 03/22/22 Patient is on supplemental oxygen by nasal cannula Oxygen saturation noted to be at 96% Patient is tachypneic suspect that this is secondary to metabolic acidosis ABG reviewed Chest x-ray reviewed Breathing treatments p.r.n. Post op day 3 Patient has developed post up ileus Unable to continue home meds NG in place NPO IV fluids [place] in place Daily intake and output Supportive care Patient receiving D5 half-normal saline Cautious normalization of sodium Serial BMP Continue to monitor Follow surgery recommendations Patient was transferred? to intermediate care unit Patient is now a do not resuscitate after having a family meeting in with children and Correct hypernatremia 03/26/22 Likely due to aspiration pneumonia with severe sepsis requiring ICU admission.? Extubated 03/19 and has been on 2-3L NC since extubation. CXR w/ penumonia.? Antibiotics changed to imipenem and vancomycin late yesterday evening. Ordered chlamydia and mycoplasma pneumonia PCR for sputum. -Continue imipenem and vancomycin -Overall appears to be clinically improving.? ? Antibiotics changed overnight.? Will monitor to see if improvement over the next 24 hours.? BCX remain negative.? Repeat UCX & BCX remain negative. ? -Tylenol PRN fever -Continue pn
[2022-04-03] MEDS: ALBUTEROL SULFATE NEB 2.5 MG/3 ML INH 5 MG INHALATION (07:48)
[2022-04-03 07:49] VITALS: PULSE 98; RESP 18
[2022-04-03] MEDS: IPRATROPIUM BR 0.02% INH SOLN 0.5 MG/2.5 ML VIAL INHALATION (07:49)
[2022-04-03 07:50] VITALS: PULSE 98; RESP 18; O2SAT 92
[2022-04-03 08:00] VITALS: PULSE 97; RESP 18
[2022-04-03 08:08] VITALS: BP 120/61; PULSE 100; RESP 18; TEMP 36.8; O2SAT 96
--- NOTE | 2022-04-03 11:09 | P.DS_ITS ---
DS: Admitting Diagnosis Discharge Date 04/03/2022 Admitting Diagnosis generalized weakness DS: Discharge Diagnosis Discharge Diagnosis (1) Fecal impaction: Code(s): K56.41 - Fecal impaction Status: Acute (2) Recurrent fever: Code(s): A68.9 - Relapsing fever, unspecified Status: Acute (3) Status post hernia repair: Code(s): Z98.890 - Other specified postprocedural states; Z87.19 - Personal history of other diseases of the digestive system Status: Acute (4) Acute metabolic encephalopathy: Code(s): G93.41 - Metabolic encephalopathy Status: Acute (5) Hypernatremia: Code(s): E87.0 - Hyperosmolality and hypernatremia Status: Acute (6) Ileus: Code(s): K56.7 - Ileus, unspecified Status: Acute (7) Fever: Code(s): R50.9 - Fever, unspecified Status: Acute (8) Dysphagia: Code(s): R13.10 - Dysphagia, unspecified Status: Acute (9) Acute respiratory failure: Code(s): J96.00 - Acute respiratory failure, unspecified whether with hypoxia or hypercapnia Status: Acute (10) Small bowel obstruction: Code(s): K56.609 - Unspecified intestinal obstruction, unspecified as to partial versus complete obstruction Status: Acute (11) Acute kidney injury: Code(s): N17.9 - Acute kidney failure, unspecified Status: Acute (12) Obstructed umbilical hernia: Code(s): K42.0 - Umbilical hernia with obstruction, without gangrene Status: Acute (13) Aspiration pneumonia: Code(s): J69.0 - Pneumonitis due to inhalation of food and vomit Status: Acute (14) Parkinson's disease dementia: Code(s): G20 - Parkinson's disease; F02.80 - Dementia in other diseases classified elsewhere without behavioral disturbance Status: Acute (15) Parkinson's disease: Code(s): G20 - Parkinson's disease Status: Chronic (16) Severe sepsis: Code(s): A41.9 - Sepsis, unspecified organism; R65.20 - Severe sepsis without septic shock Status: Acute (17) Pneumonia: Qualifiers: Laterality: bilateral Lung location: lower lobe of lung Pneumonia type: due to unspecified organism Qualified Code(s): J18.9 - Pneumonia, unspecified organism Code(s): J18.9 - Pneumonia, unspecified organism Status: Acute (18) Hearing Loss: Qualifiers: Hearing loss type: unspecified Code(s): H91.90 - Unspecified hearing loss, unspecified ear Status: Acute (19) Acute respiratory failure with hypoxia: Code(s): J96.01 - Acute respiratory failure with hypoxia Status: Acute (20) Diet-controlled diabetes mellitus: Code(s): E11.9 - Type 2 diabetes mellitus without complications Status: Acute Plan 03/22/22 Patient is on supplemental oxygen by nasal cannula Oxygen saturation noted to be at 96% Patient is tachypneic suspect that this is secondary to metabolic acidosis ABG reviewed Chest x-ray reviewed Breathing treatments p.r.n. Post op day 3 Patient has developed post up ileus Unable to continue home meds NG in place NPO IV fluids [place] in place Daily intake and output Supportive care Patient receiving D5 half-normal saline Cautious normalization of sodium Serial BMP Continue to monitor Follow surgery recommendations Patient was transferred? to intermediate care unit Patient is now a do not resuscitate after having a family meeting in with children and wi
== END 2022-04-03 13:03 | disposition hospice, home (50) | DRG 853 ==
LOC: ANHED 09:30 → ANHICU 03-17 11:55 → ANH3MEDSUR 03-21 10:29 → ANHIMU 03-21 23:41 → ANH2MED 04-03 11:09 → ANH3MEDSUR 04-04 09:00 → ANHICU 04-04 09:00 → ANHIMU 04-04 09:00
PROVIDERS: Family Medicine; Hospitalist; Internal Medicine; Internal Medicine Nephrology; Physician Assistant; Surgery; Admitting Provider Internal Medicine; Emergency Provider Emergency Medicine; PCP Family Medicine; Visit Provider Family Medicine
PROC: 0WQF0ZZ Repair Abdominal Wall, Open Approach (ICD-10-PCS; CPT 49000; principal; 2022-03-18 07:30)
DX: A41.9 Sepsis, unspecified organism (principal); J18.9 Pneumonia, unspecified organism; J96.01 Acute respiratory failure with hypoxia; J69.0 Pneumonitis due to inhalation of food and vomit; G93.41 Metabolic encephalopathy; N17.9 Acute kidney failure, unspecified; E87.2 Acidosis; K42.0 Umbilical hernia with obstruction, without gangrene; E87.0 Hyperosmolality and hypernatremia; K91.89 Other postprocedural complications and disorders of digestive system; K56.7 Ileus, unspecified; A68.9 Relapsing fever, unspecified; Z20.822 Contact with and (suspected) exposure to COVID-19; R65.20 Severe sepsis without septic shock; G20 Parkinson's disease; Z66 Do not resuscitate; I10 Essential (primary) hypertension; I48.91 Unspecified atrial fibrillation; Z96.82 Presence of neurostimulator; Z91.81 History of falling; F02.80 Dementia in other diseases classified elsewhere, unspecified severity, without behavioral disturbance, psychotic disturbance, mood disturbance, and anxiety; L40.9 Psoriasis, unspecified; R29.6 Repeated falls; Y92.230 Patient room in hospital as the place of occurrence of the external cause; R13.10 Dysphagia, unspecified; Y83.8 Other surgical procedures as the cause of abnormal reaction of the patient, or of later complication, without mention of misadventure at the time of the procedure; K56.41 Fecal impaction; H91.90 Unspecified hearing loss, unspecified ear
CPT/HCPCS: 36415; 36600; 51701; 70450; 71045; 71046; 71250; 74018; 74019; 74176; 76775; 80048; 80053; 80069; 80202; 81001; 82375; 82805; 82948; 83036; 83050; 83605; 83735; 83880; 84100; 84484; 84550; 85025; 85055; 85610; 85730; 86140; 87040; 87086; 87449; 87486; 87502; 87581; 87899; 88307; 92610; 92611; 93005; 94002; 94003; 94640; 94669; 96360; 96361; 97110; 97162; 97166; 97530; 97535; 99291; A9270; C8929; C9113; C9803; J0131; J0330; J0743; J1630; J1644; J1956; J2370; J2543; J2704; J2710; J3010; J3370; J3480; J7030; J7040; J7070; J7120; Q9957; U0003; U0005